=== PATIENT | female | born 1955 | race Caucasian/White ===

== ENCOUNTER 2020-09-25 12:36 | Emergency (ER) | payer MEDICARE, OTHER, SELFPAY ==
[2020-09-25 12:42] VITALS: BP 227/107; PULSE 86; RESP 20; TEMP 36.4; O2SAT 98; BMI 42.0
--- NOTE | 2020-09-25 12:42 | ED_ITS ---
Documented by User: CESILIA Hernandez 09/25/20 13:41 HPI - Extremity Injury (Upper) General: Chief Complaint: Extremity Injury, Upper Stated Complaint: FALL/ SHOULDER INJURY Time Seen by Provider: 09/25/20 12:41 Source: patient Mode of arrival: ambulatory Limitations: no limitations History of Present Illness: HPI narrative: 65-year-old female comes in for injury to the left upper arm. Patient reports she was walking the dog and the dog pulled on her causing her to trip and fall. Patient outstretched her arms and injured her left arm. Patient has some obvious deformity to the mid upper left humeral area. Review of Systems General: Reports: 10 or more systems reviewed and unremarkable except in HPI and below Musc: Reports: extremity pain (Left upper arm.) Physical Exam Const: COMMON NORMALS: no acute distress and patient oriented x3 GENERAL APPEARANCE: cooperative HENMT: COMMON NORMALS: normocephalic and Normal external nose present HEAD & SCALP: normal to inspection and normocephalic NOSE: Normal external nose present MOUTH: Normal oral and palatal mucosa present Eye: GENERAL EYE: appearance normal, both eyes and all related structures Neck/C-Spine: COMMON NORMALS: full ROM Chest: COMMONS NORMALS: normal inspection of the chest Resp: COMMON NORMALS: normal respiratory effort EFFORT & INSPECTION: Yes able to speak in complete sentences Cardio: COMMON NORMALS: regular rate and regular rhythm RATE: regular rate RHYTHM: regular rhythm GI: COMMON NORMALS: non-tender : COMMON NORMALS: Yes no CVA tenderness BLADDER/KIDNEY EXAM: Yes no CVA tenderness Back/Pelvis: COMMON NORMALS: no CVA tenderness and thoracic and lumbar spine normal to inspection Extremity: NARRATIVE EXTREMITY EXAM: Mid to upper shaft of the humerus notes some deformity or dislocation of the shoulder. Distal pulses and sensation are intact. Patient is not moving due to pain. Neuro: COMMON NORMALS: patient oriented x3 and moves all extremities Psych: COMMON NORMALS: mental status grossly normal and cooperative Skin: COMMON NORMALS: no rashes or lesions noted GENERAL SKIN EXAM: no rashes or lesions noted Course ED course: 1330, x-ray revealed a dislocation of the shoulder with avulsion at the humeral head. Consulted Dr. Monroe who agreed to assume care of patient for reduction.. wjw Vital Signs: Vital signs: Vital Signs Temperature 97.8 F 09/25/20 14:15 Pulse Rate 66 09/25/20 14:34 Respiratory Rate 25 H 09/25/20 14:15 Blood Pressure 218/128 09/25/20 14:15 Pulse Oximetry 96 09/25/20 13:26 Discharge Plan Discharge Patient Disposition: Home Clinical Impression: Dislocation of shoulder region Qualifiers: Encounter type: initial encounter Laterality: left Qualified Code(s): S43.005A - Unspecified dislocation of left shoulder joint, initial encounter Condition: Stable Prescriptions: [place] 5-325 mg tablet 1 tab PO Q6H PRN (Reason: pain) Qty: 14 RF: 0 Discharge Orders: Discharge ED (Routine); Ordered 09/25/20 Ordered By: Brittany Monroe Referrals: Tom Archibald MD [Primary Care Provider] - Clifford Bazan MD [Physician] - 1-3 days Discharge Diet: Advance as tolerated Discharge Activity: Resume usual activity Patient Instructions: Shoulder Dislocation (ED) Coding Level of Care Code ED Credentialing Specialist for Chg Fwd Exam Comprehensive Documented by User: Brittany Monroe MD 09/25/20 14:52 HPI - Extremity Injury (Upper) General: Chief Complaint: Extremity Injury, Upper Stated Complaint: FALL/ SHOULDER INJURY Time Seen by Provider: 09/25/20 12:41 Procedures Orthopedic Joint Reduction Joint #1: Time Out Performed: Yes Side: left Joint Reduction Location: shoulder Analgesia: procedural sedation Shoulder Technique Used (if applicable): traction/counter-traction Post-reduction neuro exam: intact Post-reduction vascular: intact Post Reduction X-Ray Obtained: Yes Post Reduction X-Ray Results: reduced Splint Applied: Yes Patient Tolerated Procedure: well Procedural Sedation Indication: fracture/dislocation reduction ASA Class: I Time of Last PO Intake: 11:50 Preparation: panel monitor applied, pulse oximeter, supplemental O2 applied, suction/airway equipment at bedside and IV secured IV Propofol dose (mg): 200 Patient Tolerated Procedure: well Complications: Respiratory Depression-Repositioning Required Interventions: oxygen applied, airway repositioned and assist by BVM Additional Comments: Patient had a brief period of hypoxia. She never got below 90% but was imt-gjthc-[id number] for roughly 1 minute with no complications Course Vital Signs: Vital signs: Vital Signs Temperature 97.8 F 09/25/20 14:15 Pulse Rate 66 09/25/20 14:34 Respiratory Rate 25 H 09/25/20 14:15 Blood Pressure 218/128 09/25/20 14:15 Pulse Oximetry 96 09/25/20 13:26 MDM - Extremity Injury (Upper) MDM Narrative: Medical decision making narrative: I saw patient with above midlevel. I performed the sedation along with the reduction. Patient's reduction was successful. Patient was having severe muscle spasms and had to give her 200 of propofol to be able to get the shoulder reduced. She did have slight apnea but did perform oyx-vusaw-cfpa she never had any hypoxia. Patient is now awake and is well-appearing. We will have her follow-up with orthopedics. Imaging Data^: X-ray left shoulder: Attestation: I personally reviewed and interpreted this imaging study as follows: My impression: Shoulder dislocation with likely Hill-Sachs fracture Other Xray: Radiologist's impression: Postreduction x-ray shows good placement of reduction Discharge Plan Discharge Patient Disposition: Home Clinical Impression: Dislocation of shoulder region Qualifiers: Encounter type: initial encounter Laterality: left Qualified Code(s): S43.005A - Unspecified dislocation of left shoulder joint, initial encounter Condition: Stable Prescriptions: [place] 5-325 mg tablet 1 tab PO Q6H PRN (Reason: pain) Qty: 14 RF: 0 Discharge Orders: Discharge ED (Routine); Ordered 09/25/20 Ordered By: Brittany Monroe Referrals: Tom Archibald MD [Primary Care Provider] - Clifford Bazan MD [Physician] - 1-3 days Discharge Diet: Advance as tolerated Discharge Activity: Resume usual activity Patient Instructions: Shoulder Dislocation (ED) Coding Level of Care Code ED Credentialing Specialist for Mary Janeg Fwd Exam Comprehensive
--- NOTE | 2020-09-25 12:45 | XR_ITS ---
WS: [id number] Left arm and humerus, 2 views, 09/25/2020 Clinical Data: injury Comparison: None. Findings: There is a dislocation of the humeral head in a subcoracoid location. There is an avulsion fracture o f the greater tuberosity. The AC joints intact. The shaft of the distal humerus is intact. XR/[place] [id number] Impression: Subcoracoid dislocation of left shoulder with avulsion fracture of the greater tuberosity.
[2020-09-25] MEDS: ondansetron 2 mg/ML SDV 2 mL 4 MG IVP (13:23)
[2020-09-25 13:26] VITALS: RESP 18; O2SAT 96
[2020-09-25] MEDS: morphine 4 mg/mL SDV 1 mL IVP (13:26)
[2020-09-25 14:15] VITALS: BP 218/128; PULSE 75; RESP 25; TEMP 36.6; O2SAT 100
--- NOTE | 2020-09-25 14:33 | XR_ITS ---
WS: [id number] Left shoulder, 2 views, 09/25/2020, 1421 hours. Clinical Data: POST REDUCTION Comparison: Left shoulder, today, 1252 hours. Findings: The shoulder dislocation has been reduced. The fracture of the greater tuberosity is visible. There i s a calcification adjacent to the greater tuberosity which may represent calcific bursitis or tendini tis. XR/XR shoulder LT min 2V* [id number] Impression: Reduction of left shoulder dislocation.
[2020-09-25 14:34] VITALS: PULSE 66
--- NOTE | 2020-09-25 14:36 | PC.NURSE ---
propofol 60mg at 1417 by irais 75hr, 19rr,218/128, 99 on 4L propofol 1418 by irais propofol 1420 40mg by irais propofol 1421 60mg by irais, 92 hr, 90% 6L, 210/113, 24RR 3088-8629 manual respirations by bag valve mask/respiratory. 1424 6L nc 95% 1425 procedure complete 215/102, hr 69, 02 100% 6L 1435 pt awake, oriented, bp 176/81, hr 71, rr 17, 02 100%4L 1439 pt a&o x4, ra, hr 70, bp 176/81, 97%ra, rr16
[2020-09-25 15:28] VITALS: BP 195/85; PULSE 70; RESP 18; O2SAT 99
--- NOTE | 2020-09-26 09:06 | DCPLANNER ---
alumni relations manager had message to schedule a follow up appointment for patient with ortho. alumni relations manager called the ortho clinic, spoke with Lisa, gave clinic patients information. alumni relations manager was told that patients information would be printed and reviewed. Clinic will call patient with appointment information.
--- NOTE | 2020-10-01 14:16 | DCPLANNER ---
Patient had a follow up appointment for patient with ortho scheduled for 09.29.20 - patient did attend appointment.
== END 2020-09-25 15:29 | disposition home or self-care (01) ==
PROVIDERS: Emergency Provider Emergency Medicine; PCP Family Medicine
DX: S43.005A Unspecified dislocation of left shoulder joint, initial encounter (principal); W01.0XXA Fall on same level from slipping, tripping and stumbling without subsequent striking against object, initial encounter
CPT/HCPCS: 12345; 23650; 73030; 73060; 96374; 96375; 99283; 99284; J2270; J2405

== ENCOUNTER → 2020-10-14 14:27 | Outpatient (BNVA) | payer MEDICARE, OTHER, SELFPAY | PROVIDERS: PCP Family Medicine; Visit Provider Orthopaedic Surgery | DX: S42.252A Displaced fracture of greater tuberosity of left humerus, initial encounter for closed fracture (principal); X58.XXXA Exposure to other specified factors, initial encounter | CPT/HCPCS: 73030 ==

== ENCOUNTER 2020-10-20 06:00 | Outpatient (RCR) | payer MEDICARE, OTHER, SELFPAY | END 2020-10-23 23:59 | disposition home or self-care (01) | LOC: SPT 06:00 | PROVIDERS: PCP Family Medicine; Referring Provider Orthopaedic Surgery; Visit Provider Orthopaedic Surgery | DX: S42.252D Displaced fracture of greater tuberosity of left humerus, subsequent encounter for fracture with routine healing (principal); X58.XXXD Exposure to other specified factors, subsequent encounter | CPT/HCPCS: 97110; 97161 ==

== ENCOUNTER 2020-10-24 06:00 | Outpatient (RCR) | payer MEDICARE, OTHER, SELFPAY | END 2020-11-23 23:59 | disposition home or self-care (01) | LOC: SPT 06:00 | PROVIDERS: PCP Family Medicine; Referring Provider Orthopaedic Surgery; Visit Provider Orthopaedic Surgery | DX: S42.252D Displaced fracture of greater tuberosity of left humerus, subsequent encounter for fracture with routine healing (principal); X58.XXXD Exposure to other specified factors, subsequent encounter | CPT/HCPCS: 97110; G0283 ==

== ENCOUNTER → 2020-11-11 14:06 | Outpatient (BNVA) | payer MEDICARE, OTHER, SELFPAY | PROVIDERS: PCP Family Medicine; Visit Provider Orthopaedic Surgery | DX: Z47.89 Encounter for other orthopedic aftercare (principal); S42.252D Displaced fracture of greater tuberosity of left humerus, subsequent encounter for fracture with routine healing; X58.XXXD Exposure to other specified factors, subsequent encounter | CPT/HCPCS: 73030 ==

== ENCOUNTER 2020-11-24 06:00 | Outpatient (RCR) | payer MEDICARE, OTHER, SELFPAY | END 2020-12-21 23:59 | disposition home or self-care (01) | LOC: SPT 06:00 | PROVIDERS: PCP Family Medicine; Referring Provider Orthopaedic Surgery; Visit Provider Orthopaedic Surgery | DX: S42.252D Displaced fracture of greater tuberosity of left humerus, subsequent encounter for fracture with routine healing (principal); X58.XXXD Exposure to other specified factors, subsequent encounter | CPT/HCPCS: 97110 ==

== ENCOUNTER → 2020-12-16 13:48 | Outpatient (BNVA) | payer MEDICARE, OTHER, SELFPAY | PROVIDERS: PCP Family Medicine; Visit Provider Orthopaedic Surgery | DX: S42.252D Displaced fracture of greater tuberosity of left humerus, subsequent encounter for fracture with routine healing (principal); X58.XXXD Exposure to other specified factors, subsequent encounter | CPT/HCPCS: 73030 ==

== ENCOUNTER 2020-12-22 06:00 | Outpatient (RCR) | payer MEDICARE, OTHER, SELFPAY | END 2021-01-21 23:59 | disposition home or self-care (01) | LOC: SPT 06:00 | PROVIDERS: PCP Family Medicine; Referring Provider Orthopaedic Surgery; Visit Provider Orthopaedic Surgery | DX: S42.252D Displaced fracture of greater tuberosity of left humerus, subsequent encounter for fracture with routine healing (principal); X58.XXXD Exposure to other specified factors, subsequent encounter | CPT/HCPCS: 97110 ==

== ENCOUNTER → 2021-01-14 10:02 | Outpatient (BNVA) | payer MEDICARE, OTHER, SELFPAY | PROVIDERS: PCP Family Medicine; Visit Provider Orthopaedic Surgery | DX: Z98.890 Other specified postprocedural states (principal); S42.252D Displaced fracture of greater tuberosity of left humerus, subsequent encounter for fracture with routine healing; W01.0XXD Fall on same level from slipping, tripping and stumbling without subsequent striking against object, subsequent encounter | CPT/HCPCS: 73030 ==

== ENCOUNTER → 2021-01-19 09:03 | Outpatient (BNVA) | payer MEDICARE, OTHER, SELFPAY | PROVIDERS: PCP Family Medicine; Visit Provider Podiatrist Foot & Ankle Surgery | DX: M25.571 Pain in right ankle and joints of right foot (principal) | CPT/HCPCS: 73610 ==

== ENCOUNTER 2021-02-26 13:46 | Outpatient (CLI) | payer MEDICARE, OTHER, SELFPAY ==
--- NOTE | 2021-02-26 13:51 | MM_ITS ---
WS: [id number] BILATERAL SCREENING DIGITAL MAMMOGRAM WITH CAD HISTORY: SCREENING COMPARISON: None available. Bilateral CC and MLO views submitted. Computer aided detection analyzed. Breast composition: There are scattered areas of fibroglandular density. No suspicious masses, microc alcifications or architectural distortion. Benign scattered calcifications and vascular calcification s within each breast. MM/[place] [id number] IMPRESSION: BI-RADS: 2-Benign FOLLOW UP: 1 Year Follow-up
== END 2021-02-26 13:47 | disposition home or self-care (01) ==
PROVIDERS: PCP Family Medicine; Visit Provider Family Medicine
DX: Z12.31 Encounter for screening mammogram for malignant neoplasm of breast (principal)
CPT/HCPCS: 77067

== ENCOUNTER → 2021-04-14 10:30 | Outpatient (BNVA) | payer MEDICARE, OTHER, SELFPAY | PROVIDERS: PCP Family Medicine; Visit Provider Orthopaedic Surgery | DX: S42.252D Displaced fracture of greater tuberosity of left humerus, subsequent encounter for fracture with routine healing (principal); X58.XXXD Exposure to other specified factors, subsequent encounter | CPT/HCPCS: 73030 ==

== ENCOUNTER 2021-10-19 08:04 | Outpatient (CLI) | payer MEDICARE, SELFPAY ==
--- NOTE | 2021-10-19 08:39 | ECG_ITS ---
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 Interpretive Statements NAME OF STUDY: LEXISCAN SESTAMIBI STRESS TEST INDICATION: Cp/near syncope, PROCEDURE: At the baseline, the EKG revealed normal sinus rhythm with a poor R wave progression. Possible old anteroseptal MN. Some nonspecific T wave changes. The baseline blood pressure was 159/87 mm Hg with a heart rate of 67 beats/min. Lexiscan was infused over a period of 20 seconds. A total of 0.4 milligrams of Lexiscan was infused. The stress phase was continued for a total of 5 minutes. Heart rate at the end of the stress phase was 79 with a blood pressure 139/78. The EKG at the peak infusion revealed no significant changes. Sestamibi was injected 20 seconds after the Lexiscan infusion. Blood pressure at the end of the recovery phase was 145/78 with a heart rate of 70 per minute. CONCLUSION: 1. No significant EKG changes with the LexiScan infusion 2. No LexiScan induced chest pain or cardiac arrhythmia 3. Normal blood pressure and heart rate response 4. Sestamibi/sestamibi perfusion scan pending; see separate report. Electronically Signed On 10-23-2021 10:30:17 STATE COMPTROLLER by Dina Villatoro M.D. [id number]
--- NOTE | 2021-10-19 08:39 | NMCV_ITS ---
NM juan francisco perf SPECT r/s* [id number] Daniela Hernandez Age: 66 Gender: F : 1955 Exam Date: 10/19/2021 09:35 Ordering Phys: Matt Mercado MD Technologist: CATRACHO George Exam Location: [facility] Indications: CHEST PAIN STRESS TEST Please see separate stress test report in [facility] for full findings IMAGE PROTOCOL Rest/Stress 1 Lexiscan Day Radiopharmaceutical Dose (mCi) Administration Site Administered by Rest: Tc-99m 10.8 IV CATRACHO Vela Sestamibi Stress:Tc-99m 33.0 IV CATRACHO Vela Sestamibi Rest: 19-Oct-2021 60 Discovery 630 Stress: 19-Oct-2021 30 Discovery 630 0.4mg Lexiscan. Supine position only as patient was unable to lay prone. SPECT RESULTS Technical Quality: Excellent Raw Data Analysis: Normal Image Corrections: No attenuation or motion correction applied Summed Stress Score: 0 Summed Rest Score: 0 Summed Difference Score: 0 PERFUSION FINDINGS Small area of slightly decreased size uptake in the mid and apical anterior wall region, with no significant reversibility FUNCTIONAL RESULTS (calculated via Gated SPECT) Stress Image LV EF (%): 79 Stress EDV (mL):102 TID: 0.95 Stress ESV (mL):21 FUNCTIONAL FINDINGS: Segmental wall motion analysis revealing no gross wall motion abnormalities IMPRESSIONS 1. Myocardial perfusion imaging revealing small area of slightly decreased persistent tracer uptake in the mid and apical anterior wall region, suggestive of myocardial scarring versus attenuation artifact. 2. Normal LV ejection fraction of 79%. 3. LV wall motion analysis revealing no gross wall motion normalities. 4. Normal LV volume. No significant coronary ischemia, based on the above findings Dr Dina Villatoro MD [facility] (Electronically Signed) Final Date: 20 October 2021 00:24 S
[2021-10-19 09:15] VITALS: BMI 43.9
[2021-10-19] MEDS: regadenoson 0.4 Mg/5 ml Syringe IVP (10:16)
[2021-10-19 10:27] VITALS: BP 145/78; PULSE 79
== END 2021-10-19 08:05 | disposition home or self-care (01) ==
LOC: RAD 08:13 → CDL 08:39
PROVIDERS: PCP Family Medicine; Visit Provider Family Medicine
DX: R07.9 Chest pain, unspecified (principal); R55 Syncope and collapse; R06.02 Shortness of breath
CPT/HCPCS: 78452; 93017; A9500; J2785

== ENCOUNTER → 2022-01-20 09:37 | Outpatient (BNVA) | payer MEDICARE, SELFPAY | PROVIDERS: PCP Family Medicine; Visit Provider Internal Medicine Cardiovascular Disease | DX: I47.2 Ventricular tachycardia (principal); E66.9 Obesity, unspecified; G47.33 Obstructive sleep apnea (adult) (pediatric); R55 Syncope and collapse | CPT/HCPCS: 99204 ==

== ENCOUNTER 2022-06-07 11:12 | Outpatient (CLI) | payer MEDICARE, SELFPAY ==
--- NOTE | 2022-06-07 11:21 | XRR_ITS ---
PROCEDURE INFORMATION: Exam: XR Right Shoulder Exam date and time: 06/07/2022 11:45 AM Age: 67 years old Clinical indication: Pain; Shoulder; Right; Additional info: Right shoulder pain TECHNIQUE: Imaging protocol: Radiologic exam of the Right shoulder. Views: 2 or more views. COMPARISON: No relevant prior studies available. FINDINGS: Bones/joints: No fracture or dislocation. There is mild degenerative changes of the right shoulder joint, manifested by periarticular osteophytes. In the externally rotated view, there is a 1.0 cm ossific density projecting over the superior aspect of the glenohumeral joint, concerning for intra-articular body. Degenerative changes of the spine is also seen. Soft tissues: Normal. XR/XR shoulder RT min 2V* [id number] IMPRESSION: 1. No acute injury. 2. Mild degenerative changes of the glenohumeral joint. 3. Prominent osteophyte versus intra-articular body.
== END 2022-06-07 11:13 | disposition home or self-care (01) ==
LOC: RAD 11:15
PROVIDERS: PCP Family Medicine; Visit Provider Family Medicine
DX: M25.511 Pain in right shoulder (principal)
CPT/HCPCS: 73030

== ENCOUNTER → 2022-06-16 15:23 | Outpatient (BNVA) | payer MEDICARE, SELFPAY | PROVIDERS: PCP Family Medicine; Referring Provider Family Medicine; Visit Provider Orthopaedic Surgery | DX: M19.011 Primary osteoarthritis, right shoulder (principal) | CPT/HCPCS: 73030; 99213; 99214 ==

== ENCOUNTER 2022-06-24 13:04 | Outpatient (CLI) | payer MEDICARE, SELFPAY ==
--- NOTE | 2022-06-24 13:00 | MR_ITS ---
WS: [id number] MRI RIGHT SHOULDER NONCONTRAST TECHNIQUE: Sagittal T2, coronal T1, T2 and proton density imaging. Axial gradient PDE imaging. CLINICAL INFORMATION: pain COMPARISON: None. FINDINGS: Moderate to advanced degenerative arthritis AC joint with mild edema. Mild downsloping of the acromio n with subacromial spurring. Impingement on the distal supraspinatus with tendinopathy. Tiny undersur face tear distal supraspinatus. Tiny insertional tear. Normal infraspinatus. Normal teres minor. Normal subscapularis. Subchondral degenerative cyst along t he medial bicipital groove. Tiny biceps tendon within the bicipital groove. Intra-articular biceps tendon appears intact. Normal biceps labral anchor. Degenerative fraying of the glenoid labrum. Calcified loose body in the axillar y recess. Moderate to advanced degenerative narrowing involving the glenohumeral joint. MR/MR shoulder RT wo con* [id number] IMPRESSION: 1. Moderate to advanced arthritis AC joint with mild downsloping acromion. Imp ingement on the distal supraspinatus. Tiny undersurface tear distally. Tiny ins ertional tear distal supraspinatus with chronic thinning of the supraspinatus t endon. 2. Rotator cuff is otherwise intact. 3. Subchondral cyst involving the medial bicipital groove measuring 7 mm. 4. Advanced degenerative narrowing at the glenohumeral joint with hypertrophic spurring along the medial humeral head. 5. Tiny biceps tendon within the bicipital groove may be due to chronic tear. Intra-articular biceps tendon appears intact.
== END 2022-06-24 13:05 | disposition home or self-care (01) ==
PROVIDERS: PCP Family Medicine; Visit Provider Orthopaedic Surgery
DX: M25.511 Pain in right shoulder (principal); M13.811 Other specified arthritis, right shoulder
CPT/HCPCS: 73221

== ENCOUNTER → 2022-07-13 14:11 | Outpatient (BNVA) | payer MEDICARE, SELFPAY | PROVIDERS: PCP Family Medicine; Visit Provider Orthopaedic Surgery | DX: M19.011 Primary osteoarthritis, right shoulder (principal) | CPT/HCPCS: 99213 ==

== ENCOUNTER 2022-08-23 10:53 | Outpatient (CLI) | payer MEDICARE, SELFPAY ==
--- NOTE | 2022-08-23 11:00 | CT_ITS ---
WS: [id number] NONCONTRAST CT RIGHT SHOULDER TECHNIQUE: Noncontrast CT RIGHT shoulder with coronal and sagittal reformatted images. CLINICAL INFORMATION: M19.011 - Primary osteoarthritis, right shoulder COMPARISON: MRI June 24, 2022 DLP: 693.[address] scans at [facility] use at least one of these dose optimization techniques: automated e xposure control; mA and/or kV adjustment per patient size (includes targeted exams where dose is matc hed to clinical indication); or iterative reconstruction. FINDINGS: Moderate degenerative arthritis AC joint with mild downsloping acromion. Narrowing of the subacromial space. Advanced arthritis glenohumeral joint hypertrophic changes. Hypertrophic spurring along the h umeral neck and glenoid. Calcified loose body along the posterior humeral neck measuring 11 mm. Subch ondral cystic change involving the humeral head. Intraosseous ganglion cyst or subchondral cyst invol ving the humeral head adjacent to the bicipital groove. Visualized RIGHT lung is well aerated. CT/CT shoulder RT wo con* [id number] IMPRESSION: 1. Moderate degenerative arthritis AC joint. 2. Advanced degenerative arthritis glenohumeral joint with hypertrophic spurri ng. 3. Subchondral cystic change or intraosseous ganglion cyst along the bicipital groove unchanged from MRI. 4. Calcified intra-articular loose body along the dorsal humeral neck measurin g 11 mm.
== END 2022-08-23 10:54 | disposition home or self-care (01) ==
LOC: RAD 10:56
PROVIDERS: PCP Family Medicine; Visit Provider Orthopaedic Surgery
DX: M19.011 Primary osteoarthritis, right shoulder (principal); M24.011 Loose body in right shoulder
CPT/HCPCS: 73200

== ENCOUNTER 2022-08-24 11:30 | Outpatient (CLI) | payer MEDICARE, SELFPAY | END 2022-08-24 11:31 | disposition home or self-care (01) | LOC: RT 09-01 11:32 | PROVIDERS: PCP Family Medicine; Visit Provider Orthopaedic Surgery | DX: Z01.89 Encounter for other specified special examinations (principal); R94.31 Abnormal electrocardiogram [ECG] [EKG] | CPT/HCPCS: 93005 ==

== ENCOUNTER 2022-09-06 09:57 | Observation (INO) | payer MEDICARE, SELFPAY ==
[2022-08-24 10:49] VITALS: BMI 45.7
--- NOTE | 2022-08-24 10:57 | ECG_ITS ---
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 Measurements Intervals Trevor Rate: 63 P: 22 WA: 166 QRS: 1 QRSD: 94 T: 20 QT: 402 QTc: 413 Interpretive Statements SINUS RHYTHM WITH OCCASIONAL VENTRICULAR PREMATURE COMPLEXES LOW QRS VOLTAGE IN PRECORDIAL LEADS [QRS DEFLECTION < 1.0 mV IN CHEST LEADS] POSSIBLE ANTERIOR MYOCARDIAL INFARCTION , OF INDETERMINATE AGE [30 ms Q WAVE IN V3/V4, OR R < 0.2 mV IN V4] No previous ECG available for comparison Electronically Signed On 08-24-2022 21:53:33 CDT by Dina Villatoro M.D. [id number]
[2022-08-24 11:34] LABS: Basophils # 0.1 10^3/uL (0.0-0.1); Basophils % 1.2 %; Eosinophils # 0.1 10^3/uL (0.0-0.8); Eosinophils % 1.9 %; Hematocrit 45.9 % (37.0-47.0); Hemoglobin 14.6 g/dL (11.5-15.3); Lymphocytes # 2.2 10^3/uL (0.8-4.8); Lymphocytes % 32.5 %; Mean Corpuscular HGB Conc 31.8 g/dL (30.0-36.0); Mean Corpuscular Hemoglobin 29.4 pg (28.0-34.0); Mean Corpuscular Volume 92.5 fl (81-99); Mean Platelet Volume 11.7 fL (7.4-10.4); Monocytes # 0.4 10^3/uL (0.2-0.9); Monocytes % 5.6 %; Neutrophils # 3.99 10^3/uL (1.8-7.7); Neutrophils % 58.7 %; Nucleated Red Blood Cells % 0 %; Platelet Count 192 10^3/cmm (130-400); Red Blood Count 4.96 10^6/uL (4.1-5.3); Red Cell Distribution Width 14.5 % (12.1-15.1); White Blood Count 6.8 10^3/uL (4.0-10.0)
--- NOTE | 2022-08-24 11:36 | ANES.PREANE2 ---
Pre-Anesthetic Assessment Height/Weight: Height 1.57 m Weight 113.398 kg Operation Date: 09/06/22 07:00 Proposed Procedures p RightTotal Shoulder Arthroplasty 05192,M19.011(Right) - Clifford Bazan MD Familial anesthetic complications: NOne Social No alcohol and No tobacco Exam alert, oriented x 3, clear to auscultation bilaterally and regular rate & rhythm Airway Mallampati: Class II Dentition: full Pulmonary Sleep Apnea CV/HEM Arrythmia (on diltiazem) None reported Hepatic None reported GI None reported Metabolic Morbid Obesity [facility]/sk Lower Back Pain Neuropsych None reported Anesthetic Plan ASA status: 2 Anesthesia: General and Regional (specify below) Other: interscalene Risk of > 500 ml blood loss (7ml/kg in children): No Medications/Allergies Home Medications Medication Instructions Recorded Confirmed Last Taken Type acetaminophen 325 mg tablet 325 mg PO QID PRN Pain 01/20/22 08/24/22 Unknown History (Tylenol) cholecalciferol (vitamin D3) 25 25 mcg PO DAILY 01/20/22 08/24/22 Unknown History mcg (1,000 unit) capsule potassium gluconate 595 mg (99 mg) 595 mg PO DAILY 01/20/22 08/24/22 Unknown History tablet vitamin E 200 unit capsule 200 unit PO DAILY 01/20/22 08/24/22 Unknown History diltiazem HCl 30 mg tablet 15 mg PO BID #90 tabs 03/31/22 08/24/22 Unknown Rx (Cardizem) magnesium oxide 200 mg PO DAILY 08/24/22 08/24/22 Unknown History Allergies Allergy/AdvReac Type Severity Reaction Status Date / Time No Known Allergies Allergy Verified 08/24/22 10:47 [facility] Anesthesia Medical History Obesity IRAJ (obstructive sleep apnea) Surgical History S/P bladder repair S/P cholecystectomy S/P hysterectomy S/P knee replacement Family History Mother , from [place] CAD (coronary artery disease) Pulmonary embolism Father , from [place] Myasthenia gravis Social History Smoking and tobacco status: never smoked Data Anesthesia : 08/24/22 11:26 08/24/22 11:26 Short CBC 08/24/22 Range/Units 11:26 WBC 6.8 (4.0-10.0) 10^3/uL Hgb 14.6 (11.5-15.3) g/dL Hct 45.9 (37.0-47.0) % MCV 92.5 (81-99) fl Plt Count 192 (130-400) 10^3/cmm Neut % (Auto) 58.7 % Neut # (Auto) 3.99 (1.8-7.7) 10^3/uL Cardiac Studies: Sestamibi Stress Test (Cardiology) 10/19/21 Cardiac Event Monitor 10/27/21
[2022-08-24 11:49] LABS: Anion Gap 16.3 (5-19); Blood Urea Nitrogen 27 mg/dL (8-23); Carbon Dioxide 21 mmol/L (22-29); Chloride 105 mmol/L (98-107); Glomerular Filtration Rate 122.3 mL/min (90-130); Glucose 73 mg/dL (65-115); Osmolality Calculated 290 mOsm/kg (285-295); Potassium 4.3 mmol/L (3.5-5.1); Sodium 138 mmol/L (136-145)
[2022-09-06] VITALS (18 sets, daily range): BP systolic 132–213; BP diastolic 62–98; PULSE 56–70; RESP 16–50; TEMP 36–36.6; O2SAT 93–100; BMI 55.0
[2022-09-06] MEDS: sodium chloride 0.9% 1,000 ML 30 ML IV (06:29)
--- NOTE | 2022-09-06 07:11 | W.PM.OPSFHP ---
Same Day Surgery H&P Indication for Procedure/HPI DATE OF PROCEDURE: September 06, 2022 CHIEF COMPLAINT/INDICATIONFOR SURGICAL PROCEDURE: Osteoarthritis right shoulder here for total shoulder arthroplasty PREOP DIAGNOSIS: Osteoarthritis right shoulder PLANNED PROCEDURE: Operation Date: 09/06/22 07:30 Proposed Procedures p RightTotal Shoulder Arthroplasty 88845,M19.011(Right) - Clifford Bazan MD 67 year old female patient here for evaluation of her right shoulder pain. She states that she has had pain for many year, however gradually worsening in the last 3-4 months. She has pain in the anterior and lateral shoulder. She states that her pain is reproduced with any movement of the shoulder. She has pain with lifting away from body. She states that her pain is severe at night and keeps her awake.? At night it may reduce to 5/10 intensity.? She has time where her pain wakes her from sleep. She reports that she has had cortisone injections 20+ years ago, which did give her some temporary relief. She currently takes Ibuprofen as needed for pain. She has seen chiropractics and performed a home exercise program.? She states her some days weekends she can scarcely reach the top of her head to wash her hair.? She is concerned that she feels she is reaching the point where she can scarcely use her arm. An MRI dated 06/24/2022 revealed advanced degenerative changes and an intact rotator cuff. Medications/Allergies* Home Medications Medication Instructions Recorded Confirmed Type acetaminophen 325 mg tablet 325 mg PO QID PRN Pain 01/20/22 09/06/22 History (Tylenol) cholecalciferol (vitamin D3) 25 25 mcg PO DAILY 01/20/22 09/06/22 History mcg (1,000 unit) capsule potassium gluconate 595 mg (99 mg) 595 mg PO DAILY 01/20/22 09/06/22 History tablet vitamin E 200 unit capsule 200 unit PO DAILY 01/20/22 09/06/22 History magnesium oxide 200 mg PO DAILY 08/24/22 09/06/22 History Allergies/Adverse Reactions Allergy/AdvReac Type Severity Reaction Status Date / Time No Known Allergies Allergy Verified 09/06/22 05:48 Current Medications: Generic Name Dose Route Start Last Admin Trade Name Freq PRN Reason Stop Dose Admin Sodium Chloride 1,000 mls @ 30 mls/hr 09/06/22 05:45 09/06/22 06:29 Sodium Chloride 0.9% IV 09/07/22 05:44 30 mls/hr .Q24H SARAI Administration Pertinent History/Comorbid Conditions* Medical History (Updated 06/16/22 @ 15:26 by Clifford Bazan MD) Obesity IRAJ (obstructive sleep apnea) Surgical History (Updated 01/20/22 @ 10:16 by Anna Ibrahim MD) S/P bladder repair S/P cholecystectomy S/P hysterectomy S/P knee replacement Family History (Updated 01/20/22 @ 10:00 by Maggie James RN) Father, from [place] Mother, from [place] CAD (coronary artery disease) Mother Myasthenia gravis Father Pulmonary embolism Mother Social History Smoking and tobacco status: never smoked Pertinent Exam Findings alert, oriented x 3, clear to auscultation bilaterally, regular rate & rhythm and operative site marked SHOULDER right? RANGE OF MOTION:? EXAMINED EXTREMITY ? Flexion: 90 ? External Rotation:30 ? Pain with motion ROTATOR CUFF STRENGTH: ? ? ? EXAMINED EXTREMITY ? Abduction Supination: Good without pain ? Abduction Pronation: Good without pain ? External Rotation: Good without pain ? Belly Press: Negative VASCULAR: Strong radial pulses bilaterally. Recommendations Surgery/Procedure today Coding Level of Care Code Acute Supervisor Prop Making for Chg Fwd
--- NOTE | 2022-09-06 07:15 | P.ANESUD_ITS ---
Pre-Anesthetic Update Pre-Anesthetic Assessment: Date of Surgery/Procedure: 09/06/22 Preop [place] gnosis: Osteoarthritis right shoulder Proposed Procedure: Operation Date: 09/06/22 07:30 Proposed Procedures p RightTotal Shoulder Arthroplasty 92265,M19.011(Right) - Clifford Bazan MD Any changes to Pre-Anesthetic Assessment?: No Last Intake: Intake Last Liquid Date 09/05/22 Last Liquid Time 23:45 Last Solid Date 09/05/22 Last Solid Time 18:30 Vitals: Temperature 97.8 F 09/06/22 05:51 Temperature Source Temporal Artery S can 09/06/22 05:51 Pulse Rate 70 09/06/22 05:51 Respiratory Rate 18 09/06/22 05:51 Blood Pressure 176/82 09/06/22 05:58 Blood Pressure Jinny n 113 09/06/22 05:58 Pulse Oximetry 97 09/06/22 05:51 Oxygen Delivery Me thod 09/06/22 05:51 Exam: Pre-Anes Outpt Exam: alert, oriented x 3, clear to auscultation bilaterally and regular rate & rhythm Cardiac Studies: Sestamibi Stress Test (Cardiology) 10/19 Cardiac Event Monitor 10/27/21
--- NOTE | 2022-09-06 07:16 | ANES.PROC ---
Anesthesia Procedures Procedure/Date: 09/06/22 Nerve Block ^: Nerve Block 1: Main Anesthesia: general anesthesia Time Out Performed: Yes Consent: requested by attending/covering physician, from patient, from other, risks and benefits reviewed and patient agrees to proceed Nerve block location: interscalene (R) Anesthesia monitors applied: pulse oximetry, EKG and BP cuff Nerve block position: semi sitting Anesthetic Used: ropivicaine 0.5% (20) and with decadron ( 4 mg) Ultrasound used to: recognize landmarks and visualize and ID brachial plexus Nerve Stimulator Used?: No Interscalene/Femoral BLK: 2 stimuplex 22 g needle used for position and inplane approach, visualize local anesthetic spread and no vascular puncture identified Injection: neg aspiration of heme Patient Tolerated Procedure: well and no complications Complications: none
[2022-09-06] MEDS: ceFAZolin 2,000 MG in sodium chloride 0.9% (plus) 50 ML 100 MG IV ×2 (07:30→13:53)
[2022-09-06] MEDS: EPINEPHrine 1 mg/mL INJ XX (08:05)
--- NOTE | 2022-09-06 10:06 | XR_ITS ---
WS: [id number] Exam: XR shoulder RT min 2V* [id number] Date/Time of Exam: 09/06/2022 10:06 AM Reason For Exam: Right total shoulder A shoulder prosthesis is noted and appears to be in satisfactory position. Postoperative changes in t he adjacent soft tissues. XR/XR shoulder RT min 2V* [id number] IMPRESSION: 1. Shoulder arthroplasty appearing to be in satisfactory position.
--- NOTE | 2022-09-06 10:07 | PM.OP ---
Operative Report Date of procedure: September 06, 2022 Pre-op diagnosis: Preop Diagnosis Osteoarthritis right shoulder Post-op diagnosis: same Procedure done: [] total shoulder arthroplasty Implants: Tornier total shoulder 1) Simpliciti size 3B stem 2) Simpliciti 45 x 17 high offset humeral Head 3) Aequalis PerFORM cortiolc pegged glenoid S30 mm Pathology: none sent Surgeon: Clifford Bazan Anesthesia: General and Nerve Block (Interscalene) Estimated blood loss (mL): 100 Condition: stable Disposition: PACU Brief History: Patient eburnated bone and flattening of the humeral head with peripheral osteophytes. There is eburnated bone of the glenoid. Procedure: Patient was given a interscalene block in holding. The patient was taken to the operating room and was given 2 g of Ancef. He is prepped and draped in the beachchair position with his arm supported on a George stand. A timeout was performed. A 10cm incision was made just lateral to the coracoid extending distally in line with the medial deltoid border. Dissection was carried out identifying the cephalic vein in the deltopectoral interval. Dissection was accomplished manually through the interval and subacromial and lateral deltoid adhesions released by hand. A Cristi soft tissue protector was placed. The biceps tendon was identified distally and traced proximally through the bicipital groove. The subscapularis and underlying capsule were then peeled off of the lesser tuberosity. The free tendon was fixed with braided sutures in a locking fashion and the free ends secured with a hemostat. The rotator interval was then split. The shoulder then could be dislocated out of the wound. In accordance with our preoperative plan a femoral head cut was made at the level of the capsular insertions with retractors to protect the rotator cuff. The canal was initially entered and sequentially hand broached to a 3 4 broach. A trial reduction with the size 3B stem provided satisfactory fill and stability. And covered with the humeral protector plate. Retractors were then placed around the glenoid with the humeral head being retracted posteriorly and inferiorly. Release of the capsule was accomplished beginning anteriorly and working posteriorly around the humeral head. In accordance with the plan the central guidepin was placed. The glenoid was planed down to subchondral bone removing. The central peg hole and peripheral holes were then placed. The glenoid was irrigated removing cartilaginous remnants. Peripheral peg holes were dried with a Ray-Eze and prepared with an epinephrine solution. Simplex P antibiotic cement was packed in each pedicle and the final glenoid component placed. Trial reduction was accomplished before settling on the mm mm thickness glenoid. The final humeral head was placed in the shoulder reduced. 4 drill holes were then made beginning in the bicipital groove posteriorly into the greater tuberosity. Sutures from the subscapularis were passed through these holes and the sutures were secured over a 4-hole mini plate over the greater tuberosity with excellent purchase. The rotator interval was closed laterally with a braided nylon suture. The shoulder was irrigated with saline. The deltopectoral interval was closed with interrupted 0 Vicryl suture. Subcutaneous tissues were closed with running 2-0 Stratafix. Skin edges closed with a running 4-0 Stratafix. The skin was covered with a Prineo skin glue and covered with OpSite. The patient was placed in a sling, extubated, and taken recovery room in stable condition.
--- NOTE | 2022-09-06 10:21 | SUR.PHASEI ---
1001 PT TO PACU 5 PT AWAKE ORIENTED TO SELF AND PLACE, RT SHOULDER DRESSING D/I FIRST ICE APPLIED, HOB AT 30 DEGREES, BILAT FOOT PUMPS ON AND WORKING, MONITOR SR WITH NO ECPTOPY RATE 60'S, IV TO LT AC #20 PATENT TO 800 ML UP AT KVO RATE SATS ON 8L MASK 100% X RAY AND DR GARZA AT BEDSIDE. PT VERBALLY DENIES PAIN AND NAUSEA. WARM BLANKET X 3 TO PT. SLING TO RT ARM, DISTAL FINGERS PINK WARM WITH CAP REFILL LESS THAN 3 SECONDS,
--- NOTE | 2022-09-06 10:30 | SUR.PHASEI ---
PT AWAKE ALERT TALKATIVE, HOB AT 45 DEGREES PT GIVEN WARM BLANKETS X3 TO PT, PT TAKING ICE CHIPS, C/O OF PAIN OF 7/10 TO RT SHOULDER. SEE MED GIVEN
[2022-09-06] MEDS: fentaNYL 50 mcg/mL INJ 2mL IVP (10:33)
--- NOTE | 2022-09-06 11:21 | SUR.PHASEI ---
PT TO FLOOR PER [facility] FAMILY UPDATED AT 1040 PT STABLE AND GOING TO FLOOR FAMILY MED PT IN ROOM , PT NAUSEATED FROM TRAVEL, PT TO BED WITH ASSIST OF 3 AND HOOVERMAT, PT DRESSING D/I SLING IN PLACE AND FIRST ICE, HANDOFF AT BEDSIDE, IV PATENT AT KVO RATE. COOL CLOTH TO PT FOREHEAD, NURSE RAMONITA CHECKING FOR NAUSEA MED ON FLOOR.
[2022-09-06] MEDS: sodium chloride 0.9% 1,000 ML 80 ML IV ×2 (11:35→21:05)
[2022-09-06 11:47] LABS: Glucose Point of Care 104 mg/dL (70-110)
[2022-09-06] MEDS: oxyCODONE 5 mg IR Tab/Cap PO ×3 (12:55→21:04)
--- NOTE | 2022-09-06 13:23 | ANE.PACU2 ---
Inpatient post-anesthesia follow up: Airway intact: Yes Vital signs: Temperature 96.8 F Pulse Rate 56 Respiratory Rate 18 Blood Pressure 142/78 Pulse Oximetry 97 Oxygen Delivery Me thod Nasal Cannula Oxygen Flow Rate 3 Fraction of Inspir ed Oxygen Hydration adequate: Yes Nausea and vomiting: No Pain level: 1 Mental status: Baseline
[2022-09-06] MEDS: acetaminophen 500 mg Tablet 1000 MG PO ×2 (13:53→23:05)
[2022-09-06] MEDS: dilTIAZem 30 mg Tablet 15 MG PO (17:19)
[2022-09-06] MEDS: CELEcoxib 200 mg Capsule PO (17:20)
[2022-09-06] MEDS: ceFAZolin 2,000 MG in sodium chloride 0.9% (plus) 50 ML 50 MG IV (23:04)
[2022-09-07] VITALS (8 sets, daily range): BP systolic 137–151; BP diastolic 60–76; PULSE 60–70; RESP 17–18; TEMP 36.6–36.8; O2SAT 91–97
[2022-09-07] MEDS: oxyCODONE 5 mg IR Tab/Cap PO ×3 (01:32→09:08)
[2022-09-07] MEDS: ceFAZolin 2,000 MG in sodium chloride 0.9% (plus) 50 ML 100 MG IV (06:43)
[2022-09-07] MEDS: acetaminophen 500 mg Tablet 1000 MG PO (06:43)
[2022-09-07] MEDS: CELEcoxib 200 mg Capsule PO (09:08)
[2022-09-07] MEDS: aspirin 325 mg EC Tablet PO (09:08)
[2022-09-07] MEDS: dilTIAZem 30 mg Tablet 15 MG PO (09:08)
--- NOTE | 2022-09-07 09:44 | PM.DCS ---
Discharge Providers Date of Admission: 09/06/22 09:57 Date of Discharge: September 07, 2022 Attending Provider at Admission: Clifford Garza MD Attending Provider at Discharge: Clifford Garza MD Primary Care Provider: Matt Mercado MD Diagnoses at Discharge Discharge Diagnosis (1) Status post replacement of right shoulder joint: Status: Acute (2) Osteoarthritis of right shoulder: Status: Resolved Reason for Visit Reason for Visit: M19.011 Primary Osteoarthritis, right shoulder Hospital Course Hospital Course The patient tolerated surgery well. They remained hemodynamically stable. They was begun on aspirin and for DVT prophylaxis. The patient was mobilized with therapy beginning the day of surgery and began a passive range of motion program with occupational therapy. As the pain was adequately controlled and they were fully mobile they were discharged home. Physical Exam Narrative: On the day of discharge the patient's dressing was clean and dry. The patient's would fire his deltoid and their biceps. No distal neurovascular deficits were noted. Discharge Data Studies Completed and Pending Completed Studies During Hospitalization Category Date Time Status XR shoulder RT min 2V* [id number] Routine Exams 09/06/22 10:06 Completed Radiology Impressions Shoulder X-Ray 09/06/22 10:06 IMPRESSION: 1. Shoulder arthroplasty appearing to be in satisfactory position. Laboratory Results WBC 6.8 10^3/uL (4.0-10.0) 08/24/22 11: RBC 4.96 10^6/uL (4.1-5.3) 08/24/22 11:26 Hgb 14.6 g/dL (11.5-15.3) 08/24/22 11:26 Hct 45.9 % (37.0-47.0) 08/24/22 11:26 MCV 92.5 fl (81-99) 08/24/22 11:26 MCH 29.4 pg (28.0-34.0) 08/24/22 11:26 MCHC 31.8 g/dL (30.0-36.0) 08/24/22 11:26 RDW 14.5 % (12.1-15.1) 08/24/22 11:26 Plt Count 192 10^3/cmm (130-400) 08/24/22 11:26 MPV 11.7 fL (7.4-10.4) H 08/24/22 11:26 Neut % (Auto) 58.7 % 08/24/22 11:26 Lymph % (Auto) 32.5 % 08/24/22 11:26 [place] % (Auto) 5.6 % 08/24/22 11:26 Eos % (Auto) 1.9 % 08/24/22 11:26 Baso % (Auto) 1.2 % 08/24/22 11:26 Neut # (Auto) 3.99 10^3/uL (1.8-7.7) 08/24/22 11:26 Lymph # (Auto) 2.2 10^3/uL (0.8-4.8) 08/24/22 11:26 [place] # (Auto) 0.4 10^3/uL (0.2-0.9) 08/24/22 11: Eos # (Auto) 0.1 10^3/uL (0.0-0.8) 08/24/22 11: Baso # (Auto) 0.1 10^3/uL (0.0-0.1) 08/24/22 11:26 Nucleated RBC % (auto) 0 % 08/24/22 11: Nucleated RBCs # 0.0 /100WBC 08/24/22 11:26 Sodium 138 mmol/L (136-145) 08/24/22 11:26 Potassium 4.3 mmol/L (3.5-5.1) 08/24/22 11:26 Chloride 105 mmol/L (98-107) 08/24/22 11:26 Carbon Dioxide 21 mmol/L (22-29) L 08/24/22 11:26 Anion Gap 16.3 (5-19) 08/24/22 11:26 BUN 27 mg/dL (8-23) H 08/24/22 11:26 Creatinine 0.5 mg/dL (0.5-0.9) 08/24/22 11:26 GFR Calculation 122.3 mL/min (90-130) 08/24/22 11:26 Glucose 73 mg/dL (65-115) 08/24/22 11:26 POC Glucose 104 mg/dL (70-110) 09/06/22 11:30 Calculated Osmolality 290 mOsm/kg (285-295) 08/24/22 11:26 Calcium 10.0 mg/dL (8.5-10.5) 08/24/22 11:26 Vitals Last Vital Signs Temp 98.0 F 09/07/22 07:57 Pulse 68 09/07/22 07:57 Resp 18 09/07/22 09:08 BP 148/64 09/07/22 07:57 Pulse Ox 95 09/07/22 07:57 O2 Del Method 09/07/22 07:57 O2 Flow Rate 3 09/06/22 10:50 Discharge Plan Discharge Patient Disposition: Home Condition: Stable Prescriptions: New oxycodone 5 mg Tablet 5 mg PO Q4H PRN (Reason: Moderate Pain) 7 Days Qty: 30 0RF aspirin 325 mg Tablet,Delayed Release (Dr/Ec) 325 mg PO DAILY 30 Days Qty: 30 0RF celecoxib 200 mg Capsule 200 mg PO BID 14 Days Qty: 28 0RF acetaminophen 500 mg Tablet 1,000 mg PO Q8H 14 Days Qty: 84 0RF Continued cholecalciferol (vitamin D3) 25 mcg (1,000 unit) capsule 25 mcg PO DAILY vitamin E 200 unit capsule 200 unit PO DAILY potassium gluconate 595 mg (99 mg) tablet 595 mg PO DAILY diltiazem HCl [Cardizem] 30 mg tablet 15 mg PO BID Qty: 90 3RF magnesium oxide 400 mg magnesium capsule 200 mg PO DAILY Discontinued acetaminophen [Tylenol] 325 mg tablet 325 mg PO QID PRN (Reason: Pain) Discharge Orders: Discharge Order (Routine); Ordered 09/07/22 Ordered By: Clifford Garza Referrals: Clifford Garza MD [Physician] - 09/22/22 8:00 am Discharge Diet: Advance as tolerated Discharge Activity: Limit activity as instructed Patient Instructions: Opioid Safety Activity Restrictions/Additional Instructions: Okay to shower. No soaking incision in tub Removal OpSite dressing in 48 hours Apply FirstIce up to 20 min/hr for pain and swelling Take Celebrex twice a day for the next 15 days for pain , discontinue other anti-inflammatories Take Tylenol 500mg (up to 2 tabs) 3 times a day for mild pain take oxycodone for breakthrough pain. Exercises per Occupational Therapy IF HAVE ANY PROBLEMS OR QUESTIONS CALL [facility] AT AND ASK TO HAVE DR. GARZA PAGED. Discharge Attestations Time Spent in Discharge Care*: other Quality Metrics Clinical Quality Measures [ No reported AMI, CVA or VTE this stay] Coding Level of Care Code Acute g FW DC note Diagnoses Status post replacement of right shoulder joint Z96.611 Osteoarthritis of right shoulder M19.011
--- NOTE | 2022-09-07 12:19 | PC.CHAP ---
Pastoral Care Encounter/Spiritual Assessment Type of Contact [] Declined wireless internet installer visit [] Patient/Family/Request visit [] Outpatient visit [] Follow-up visit [] Physician referral [] Code/Alert [x] Routine visit [] Staff referral [] Actively dying [] Patient sleeping [] Family support [] [] Out of room [] Palliative care [] [] Receiving care in room [] Pre-surgical visit [] Trauma [] Long length of stay [] ICU visit [] Other: Relational/Emotional Strength [] Patient feels connected with others/family/visitors/staff [] Distress [] Loneliness/isolation [] Abandonment Spirituality of Patient [x] Person of Xochitl [] Attends Buddhist of their Xochitl [x] Believes in Prayer [] Reads Bible or Latter-Day materials [] There are Spiritual issues to be addressed Swimmer Interventions [x] Prayer [] Active listening [] Non-anxious presence [] Spiritual/emotional support [] Crisis/trauma care [] Spiritual counseling [] Bereavement support [] Provided bereavement packet [] Provided Bible/devotional materials [] Provided toy/stuffed animal, coloring book to patient or family member [] Provided Communion [] Anointing/[place] [] Salvation [x] Completed spiritual assessment [] Other: Impact on Illness or Injury [] Angry [] Fearful [] Anxious [] Often cries [] Exhaustion [] Unable to work [] Unable to attend restoration [] Unable to walk/stand [] Unable to read [] Unable to drive [] Unable to eat/drink [] Unable to sleep [] Unable to be with family [] Patient intubated [] Other: Summary Time spent with patient 5 min
== END 2022-09-07 12:12 | disposition home or self-care (01) ==
LOC: MEDSURG 09:57
PROVIDERS: Anesthesiology; Admitting Provider Orthopaedic Surgery; PCP Family Medicine; Visit Provider Orthopaedic Surgery
PROC: (CPT 23472; principal; 2022-09-06 07:00)
DX: M19.011 Primary osteoarthritis, right shoulder (principal); E66.01 Morbid (severe) obesity due to excess calories; Z68.43 Body mass index [BMI] 50.0-59.9, adult
CPT/HCPCS: 23472; 36415; 36416; 73030; 80048; 82962; 85025; 97165; 97530; C1776; G0378; J0171; J0690; J1100; J1580; J2370; J2405; J2704; J2710; J3010; J3490; J7030

== ENCOUNTER → 2022-09-22 07:55 | Outpatient (BNVA) | payer MEDICARE, SELFPAY | PROVIDERS: PCP Family Medicine; Visit Provider Orthopaedic Surgery | DX: Z96.611 Presence of right artificial shoulder joint (principal) | CPT/HCPCS: 99024 ==

== ENCOUNTER → 2022-10-06 08:39 | Outpatient (BNVA) | payer MEDICARE, SELFPAY | PROVIDERS: PCP Family Medicine; Visit Provider Nurse Practitioner Family | DX: Z96.611 Presence of right artificial shoulder joint (principal) | CPT/HCPCS: 73030; 99024 ==

== ENCOUNTER 2022-10-21 06:00 | Outpatient (RCR) | payer MEDICARE, SELFPAY | END 2022-10-23 23:59 | disposition home or self-care (01) | LOC: SPT 06:00 | PROVIDERS: PCP Family Medicine; Visit Provider Nurse Practitioner Family | DX: Z96.611 Presence of right artificial shoulder joint (principal) | CPT/HCPCS: 97110; 97161 ==

== ENCOUNTER 2022-10-24 06:00 | Outpatient (RCR) | payer MEDICARE, SELFPAY | END 2022-11-23 23:59 | disposition home or self-care (01) | LOC: SPT 06:00 | PROVIDERS: PCP Family Medicine; Visit Provider Nurse Practitioner Family | DX: Z47.1 Aftercare following joint replacement surgery (principal); Z96.611 Presence of right artificial shoulder joint | CPT/HCPCS: 97110 ==

== ENCOUNTER → 2022-11-05 09:11 | Outpatient (BNVA) | payer MEDICARE, SELFPAY | PROVIDERS: PCP Family Medicine; Visit Provider Nurse Practitioner Family | DX: I47.29 Other ventricular tachycardia (principal) | CPT/HCPCS: 99213 ==

== ENCOUNTER 2022-11-24 06:00 | Outpatient (RCR) | payer MEDICARE, SELFPAY | END 2022-12-21 23:59 | disposition home or self-care (01) | LOC: SPT 06:00 | PROVIDERS: PCP Family Medicine; Visit Provider Nurse Practitioner Family | DX: Z96.611 Presence of right artificial shoulder joint (principal) | CPT/HCPCS: 97110 ==

== ENCOUNTER 2022-12-22 06:00 | Outpatient (RCR) | payer MEDICARE, SELFPAY | END 2022-12-22 16:49 | disposition home or self-care (01) | LOC: SPT 06:00 | PROVIDERS: PCP Family Medicine; Visit Provider Nurse Practitioner Family | DX: Z96.611 Presence of right artificial shoulder joint (principal) | CPT/HCPCS: 97110 ==

== ENCOUNTER → 2023-01-04 08:43 | Outpatient (BNVA) | payer MEDICARE, SELFPAY | PROVIDERS: PCP Family Medicine; Visit Provider Nurse Practitioner Family | DX: Z47.89 Encounter for other orthopedic aftercare (principal); Z96.611 Presence of right artificial shoulder joint | CPT/HCPCS: 73030; 99213 ==

== ENCOUNTER → 2023-02-23 08:02 | Outpatient (BNVA) | payer MEDICARE, SELFPAY | PROVIDERS: PCP Family Medicine; Referring Provider Family Medicine; Visit Provider Nurse Practitioner Family | DX: L81.4 Other melanin hyperpigmentation (principal); D22.5 Melanocytic nevi of trunk; Z71.89 Other specified counseling; L85.3 Xerosis cutis; L57.0 Actinic keratosis; L71.8 Other rosacea | CPT/HCPCS: 99204 ==

== ENCOUNTER → 2023-03-02 12:25 | Outpatient (BNVA) | payer MEDICARE, SELFPAY | PROVIDERS: PCP Family Medicine; Visit Provider Internal Medicine Cardiovascular Disease | DX: I47.20 Ventricular tachycardia, unspecified (principal); R55 Syncope and collapse; G47.33 Obstructive sleep apnea (adult) (pediatric); E66.9 Obesity, unspecified; Z68.43 Body mass index [BMI] 50.0-59.9, adult | CPT/HCPCS: 99214 ==

== ENCOUNTER 2023-06-03 14:03 | Outpatient (CLI) | payer MEDICARE, SELFPAY ==
[2023-06-03 14:27] LABS: Basophils # 0.1 10^3/uL (0.0-0.1); Basophils % 0.8 %; Eosinophils # 0.1 10^3/uL (0.0-0.8); Eosinophils % 1.3 %; Hematocrit 43.6 % (37.0-47.0); Hemoglobin 13.7 g/dL (11.5-15.3); Lymphocytes # 2.4 10^3/uL (0.8-4.8); Lymphocytes % 24.1 %; Mean Corpuscular HGB Conc 31.4 g/dL (30.0-36.0); Mean Corpuscular Hemoglobin 28.3 pg (28.0-34.0); Mean Corpuscular Volume 90.1 fl (81-99); Mean Platelet Volume 11.1 fL (7.4-10.4); Monocytes # 0.6 10^3/uL (0.2-0.9); Monocytes % 6.1 %; Neutrophils # 6.66 10^3/uL (1.8-7.7); Neutrophils % 67.3 %; Nucleated Red Blood Cells % 0 %; Platelet Count 223 10^3/cmm (130-400); Red Blood Count 4.84 10^6/uL (4.1-5.3); Red Cell Distribution Width 14.7 % (12.1-15.1); White Blood Count 9.9 10^3/uL (4.0-10.0)
[2023-06-03 15:33] LABS: Alanine Aminotransferase 16 U/L (0-33); Albumin Level 3.9 g/dL (3.5-5.2); Alkaline Phosphatase 79 U/L (35-105); Anion Gap 14.7 (5-19); Aspartate Amino Transferase 19 U/L (0-32); Blood Urea Nitrogen 21 mg/dL (8-23); Calcium 10.1 mg/dL (8.5-10.5); Carbon Dioxide 23 mmol/L (22-29); Chloride 105 mmol/L (98-107); Creatine Phosphokinase 33 U/L (26-192); Globulin 2.8 g/dL (1.3-4.6); Glucose 85 mg/dL (65-115); Osmolality Calculated 288 mOsm/kg (285-295); Potassium 4.7 mmol/L (3.5-5.1); Sodium 138 mmol/L (136-145); Total Bilirubin 0.3 mg/dL (0.15-1.2); Total Protein 6.7 g/dL (6.6-8.7)
[2023-06-03 16:45] LABS: Free T4 Free Thyroxine 1.14 ng/dL (0.82-1.77)
[2023-06-06 10:44] LABS: 25 Hydroxy Vitamin D > 120 ng/mL (30-100)
== END 2023-06-03 14:04 | disposition home or self-care (01) ==
PROVIDERS: PCP Family Medicine; Visit Provider Family Medicine
DX: E55.9 Vitamin D deficiency, unspecified (principal); Z51.81 Encounter for therapeutic drug level monitoring; R53.81 Other malaise; R53.83 Other fatigue; R25.2 Cramp and spasm
CPT/HCPCS: 36415; 80053; 82306; 82550; 83735; 84439; 84443; 85025; 86141

== ENCOUNTER → 2023-06-22 13:40 | Outpatient (BNVA) | payer MEDICARE, SELFPAY | PROVIDERS: PCP Family Medicine; Visit Provider Nurse Practitioner Family | DX: L81.4 Other melanin hyperpigmentation (principal); D22.5 Melanocytic nevi of trunk; L71.8 Other rosacea; L57.8 Other skin changes due to chronic exposure to nonionizing radiation | CPT/HCPCS: 99214 ==

== ENCOUNTER → 2023-07-21 10:39 | Outpatient (BNVA) | payer MEDICARE, SELFPAY | PROVIDERS: PCP Family Medicine; Visit Provider Podiatrist Foot & Ankle Surgery | DX: M25.572 Pain in left ankle and joints of left foot (principal); M76.822 Posterior tibial tendinitis, left leg; M25.372 Other instability, left ankle | CPT/HCPCS: 73610; 99203 ==

== ENCOUNTER → 2023-08-18 08:38 | Outpatient (BNVA) | payer MEDICARE, SELFPAY | PROVIDERS: PCP Family Medicine; Visit Provider Podiatrist Foot & Ankle Surgery | DX: M25.372 Other instability, left ankle; M25.572 Pain in left ankle and joints of left foot | CPT/HCPCS: 99213 ==

== ENCOUNTER → 2024-08-08 07:58 | Outpatient (BNVA) | payer MEDICARE, SELFPAY | PROVIDERS: PCP Family Medicine; Visit Provider Podiatrist Foot & Ankle Surgery | DX: M77.42 Metatarsalgia, left foot; M25.872 Other specified joint disorders, left ankle and foot | CPT/HCPCS: 73630; 99213 ==

== ENCOUNTER 2024-08-28 10:50 | Outpatient (CLI) | payer MEDICARE, SELFPAY ==
--- NOTE | 2024-08-28 11:00 | US_ITS ---
WS: [id number] ULTRASOUND SOFT TISSUES LEFT foot HISTORY: rule out mortons neuroma COMPARISON: None available. TECHNIQUE: 2-D and color Doppler imaging is submitted. On the images submitted there is no soft tissue mass. No bursitis. US/US soft tissue/extremity [id number] IMPRESSION: No Gann's neuroma identified on the imaging submitted.
== END 2024-08-28 10:51 | disposition home or self-care (01) ==
LOC: RAD 10:52
PROVIDERS: PCP Family Medicine; Visit Provider Podiatrist Foot & Ankle Surgery
DX: M77.40 Metatarsalgia, unspecified foot (principal)
CPT/HCPCS: 76882

== ENCOUNTER → 2024-09-05 09:39 | Outpatient (BNVA) | payer MEDICARE, SELFPAY | PROVIDERS: PCP Family Medicine; Visit Provider Podiatrist Foot & Ankle Surgery | DX: M77.42 Metatarsalgia, left foot (principal); M25.872 Other specified joint disorders, left ankle and foot | CPT/HCPCS: 99213 ==

== ENCOUNTER 2024-10-02 17:13 | Inpatient (IN) | payer MEDICARE, SELFPAY ==
[2024-10-02] VITALS (60 sets, daily range): BP systolic 90–154; BP diastolic 72–103; PULSE 70–174; RESP 15–38; TEMP 36.3–36.9; O2SAT 85–98; BMI 60.3
--- NOTE | 2024-10-02 17:33 | ECG_ITS ---
[facility] Test Date: 2024-10-02 Pat Name: Daniela Hernandez Department: Room: Gender: Female Director Pharmacology: : [id number] Requested By: Hayden Don Order Number: [id number] Hyun MD: Dina Villatoro M.D. Measurements Intervals Rives Rate: 168 P: 0 GA: 0 QRS: -31 QRSD: 80 T: 74 QT: 278 QTc: 465 Interpretive Statements ATRIAL FIBRILLATION WITH RAPID VENTRICULAR RESPONSE LEFT AXIS DEVIATION [QRS AXIS < -30] LOW QRS VOLTAGE IN PRECORDIAL LEADS [QRS DEFLECTION < 1.0 mV IN CHEST LEADS] MINIMAL ST DEPRESSION [0.025+ mV ST DEPRESSION] CRITICAL TEST RESULT Compared to ECG 08/24/2022 11:27:09 Left-axis deviation now present ST (T wave) deviation now present Sinus rhythm no longer present Ventricular premature complex(es) no longer present Myocardial infarct finding no longer present Electronically Signed On 10-02-2024 19:14:40 [employer] M[employer] 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 [email or web address]
--- NOTE | 2024-10-02 17:34 | XRR_ITS ---
PROCEDURE INFORMATION: Exam: XR Chest Exam date and time: 10/02/2024 5:53 PM Age: 69 years old Clinical indication: Dyspnea TECHNIQUE: Imaging protocol: Radiologic exam of the chest. Views: 1 view. COMPARISON: CR XR shoulder RT min 2V* [id number] 01/04/2023 8:43 AM FINDINGS: Lungs: Patchy bilateral largely right lower lobe ground-glass airspace opacities reflecting alveolar edema and/or pneumonic infiltrates. Pleural spaces: Unremarkable. No pleural effusion. No pneumothorax. Heart/Mediastinum: Cardiomegaly. Bones/joints: Unremarkable. XR/XR chest 1V portable [id number] IMPRESSION: 1. Patchy bilateral largely right lower lobe ground-glass airspace opacities reflecting alveolar edema and/or pneumonic infiltrates. 2. Cardiomegaly.
--- NOTE | 2024-10-02 17:42 | ED_ITS ---
Documented by User: Hayden Denny DO 10/03/24 05:49 HPI - SOB/Dyspnea 2 General: Chief Complaint: Shortness of Breath/Dyspnea Stated Complaint: rapid heart rate, SOB Time Seen by Provider: 10/02/24 17:23 History of Present Illness: HPI Narrative: 69-year-old female with a known history of A-fib presents emergency room after being seen in her doctor's office she was noted to be in A-fib with RVR I directed here she has had some chest pain shortness of breath intermittently and orthopnea. This been going on for the last several days. She has known history of atrial fibrillation she is on room very low-dose of diltiazem at 15 mg once a day she is not on any anticoagulation no history of any coronary artery disease. Associated symptoms: Reports chest pain and orthopnea; Deny abdominal pain or fever(s) Related Data Home Medications Medication Instructions Recorded Confirmed aspirin 325 mg tablet 325 mg PO DAILY 11/05/22 10/03/24 magnesium glycinate 250 mg PO BEDTIME 06/03/23 10/03/24 zinc gluconate 20 mg tablet 20 mg PO DAILY 06/03/23 10/03/24 Previous Rx's Medication Instructions Recorded sole supports #1 ea 08/08/24 diltiazem HCl 30 mg tablet 15 mg (1/2 x 30 mg) PO BID #60 tabs 09/26/24 (Cardizem) Allergies Allergy/AdvReac Type Severity Reaction Status Date / Time No Known Allergies Allergy Verified 10/02/24 17:20 Review of Systems 2 Const: Denies: fever(s) or chills Card: Reports: chest pain, edema, swelling of feet/ankles, dyspnea on exertion and orthopnea Resp: Denies: dyspnea GI: Denies: abdominal pain : Denies: dysuria, urinary frequency or urinary urgency Musc: Denies: neck pain or back pain Skin/Breast: Denies: rash PFSH ED 2 PFSH: Medical History IRAJ (obstructive sleep apnea) Uses CPAP Obesity Surgical History S/P knee replacement S/P bladder repair S/P cholecystectomy S/P hysterectomy Family History Mother , from PE CAD (coronary artery disease) Pulmonary embolism Father , from MG Myasthenia gravis Social History Smoking and tobacco/nicotine status: never used tobacco/nicotine Physical Exam 2 Const: GENERAL APPEARANCE: cooperative ORIENTATION/CONSCIOUSNESS: Yes awake, Yes oriented to person, Yes oriented to place and Yes oriented to time HENMT: COMMON NORMALS: normocephalic, atraumatic and hearing grossly normal bilaterally HEAD & SCALP: normocephalic and atraumatic Resp: COMMON NORMALS: normal respiratory effort, No retractions and No use of accessory muscles AUSCULTATION: crackles Cardio: COMMON NORMALS: No murmurs present (Cardio) RATE: tachycardic R HYTHM: abnormal rhythm irregularly irregular GI: COMMON NORMALS: Soft to palpation and No hepatosplenomegaly present A USCULTATION: Yes normoactive bowel sounds PALPATION: Yes Soft to palpation, No Tenderness to palpation present (GI), No Guarding due to palpation present (GI) and Yes No hepatosplenomegaly present Extremity: COMMON NORMALS: normal to inspection and capillary refill normal NARRATIVE EXTREMITY EXAM: +2 lower extremity edema Neuro: SENSORIUM/ORIENTATION: Yes oriented to person, Yes oriented to place and Yes oriented to time Skin: COMMON NORMALS: no rashes or lesions noted GENERAL SKIN EXAM: no rashes or lesions noted Course 2 Vital Signs: Vital signs: Vital Signs Temperature 97.9 F 10/03/24 04:00 Pulse Rate 137 H 10/03/24 04:00 Respiratory Rate 19 H 10/03/24 04:00 Blood Pressure 124/91 10/03/24 04:00 Pulse Oximetry 95 10/03/24 04:00 Oxygen Delivery Me thod Room Air 10/03/24 04:00 Oxygen Flow Rate 2 10/02/24 19:45 MDM - SOB/Dyspnea Medical Decision Making Patient presents in A-fib with RVR. Cardizem initiated with titrating up but patient is not responding well will likely have to be transitioned to amiodarone. Chest x-ray shows changes consistent with congestive heart failure, likely due to her A-fib. She is not currently on much for rate control or for anticoagulation. Will need further evaluation care signed out to Dr. Salgado at change of shift. See final notes for diagnosis and disposition. Patient care transferred over to myself at shift change, patient was on and Cardizem drip maxed out with no relief. We switched her over to an amiodarone drip and bolus, patient's rate is decreased from the 160s to the 130s. Lab work is starting to come back. We have back so far is essentially unremarkable. Chest x-ray does show possible edema versus pneumonic infiltrate, white count is normal at 10.7, Dr. Doss was consulted and agreed for inpatient treatment. Lab Data 10/02/24 17:50 10/03/24 03:30 Labs/Radiology: Radiology Impressions Chest X-Ray 10/02/24 17:34 IMPRESSION: 1. Patchy bilateral largely right lower lobe ground-glass airspace opacities reflecting alveolar edema and/or pneumonic infiltrates. 2. Cardiomegaly. Laboratory Results WBC 10.70 10^3/uL (3.29-11.43) 10/02/24 17:50 RBC 5.34 10^6/uL (3.85-5.65) 10/02/24 17:50 Hgb 15.10 g/dL (11.27-16.99) 10/02/24 17:50 Hct 48.0 % (36-47) H 10/02/24 17:50 MCV 89.9 fl (85-98) 10/02/24 17:50 MCH 28.3 pg (27-33) 10/02/24 17:50 MCHC 31.5 g/dL (30-55) 10/02/24 17:50 RDW 16.2 % (12.1-15.1) H 10/02/24 17:50 Plt Count 245 10^3/cmm (157-399) 10/02/24 17:50 MPV 11.4 fL (7.4-10.4) H 10/02/24 17:50 Neut % (Auto) 69.3 % 10/02/24 17:50 Lymph % (Auto) 22.5 % 10/02/24 17:50 Hickory % (Auto) 5.3 % 10/02/24 17:50 Eos % (Auto) 2.1 % 10/02/24 17:50 Baso % (Auto) 0.5 % 10/02/24 17:50 Neut # (Auto) 7.41 10^3/uL (1.8-7.7) 10/02/24 17:50 Lymph # (Auto) 2.4 10^3/uL (0.8-4.8) 10/02/24 17:50 [place] # (Auto) 0.6 10^3/uL (0.2-0.9) 10/02/24 17:50 Eos # (Auto) 0.2 10^3/uL (0.0-0.8) 10/02/24 17:50 Baso # (Auto) 0.1 10^3/uL (0.0-0.1) 10/02/24 17:50 Nucleated RBC % (auto) 0 % 10/02/24 17:50 Nucleated RBCs # 0.0 /100WBC 10/02/24 17:50 Sodium 139 mmol/L (136-145) 10/02/24 17:50 Potassium 4.7 mmol/L (3.5-5.1) 10/02/24 17:50 Chloride 103 mmol/L (98-107) 10/02/24 17:50 Carbon Dioxide 19 mmol/L (22-29) L 10/02/24 17:50 Anion Gap 21.7 (5-19) H 10/02/24 17:50 BUN 15 mg/dL (8-23) 10/02/24 17:50 Creatinine 0.8 mg/dL (0.5-0.9) 10/02/24 17:50 GFR Calculation Not Reportable 10/02/24 17:50 Glucose 91 mg/dL (65-115) 10/02/24 17:50 Calculated Osmolality 288 mOsm/kg (285-295) 10/02/24 17:50 Calcium 10.1 mg/dL (8.5-10.5) 10/02/24 17:50 Total Bilirubin 0.8 mg/dL (0.15-1.2) 10/02/24 17:50 AST 25 U/L (0-32) 10/02/24 17:50 ALT 32 U/L (0-33) 10/02/24 17:50 Alkaline Phosphatase 112 U/L (35-105) H 10/02/24 17:50 Troponin T Baseline 11 ng/L (0-10) H 10/02/24 17:50 NT-Pro-B Natriuret Pep 2094 pg/mL (0-125) H 10/02/24 17:50 Total Protein 7.8 g/dL (6.6-8.7) 10/02/24 17:50 Albumin 4.1 g/dL (3.5-5.2) 10/02/24 17:50 Globulin 3.7 g/dL (1.3-4.6) 10/02/24 17:50 TSH 3.96 uIU/mL (0.27-4.20) 10/02/24 17:50 Discharge Plan Discharge Patient Disposition: Admitted As Inpatient Admit Provider: Mami Doss Clinical Impression: Atrial fibrillation with rapid ventricular response Condition: Stable Coding Level of Care Code ED Office Machine Mechanic for Chg Fwd Documented by User: Daniele Salgado DO 10/02/24 19:40 HPI - SOB/Dyspnea 2 General: Chief Complaint: Shortness of Breath/Dyspnea Stated Complaint: rapid heart rate, SOB Time Seen by Provider: 10/02/24 17:23 History of Present Illness: HPI Narrative: Patient presents to the ER with shortness of breath and heart racing. She said this has been more or less steady since a couple days after [place]. Patient does have a history of A-fib and also V. tach. Patient takes diltiazem 30 mg half a tablet twice a day. Patient has seen Dr. Ibrahim in the past. Patient states she never been in the hospital for this. Patient says she gets this pretty frequent but usually only last a couple hours but this time is lasted couple weeks. Related Data Home Medications Medication Instructions Recorded Confirmed aspirin 325 mg tablet 325 mg PO DAILY 11/05/22 10/03/24 magnesium glycinate 250 mg PO BEDTIME 06/03/23 10/03/24 zinc gluconate 20 mg tablet 20 mg PO DAILY 06/03/23 10/03/24 Previous Rx's Medication Instructions Recorded sole supports #1 ea 08/08/24 diltiazem HCl 30 mg tablet 15 mg (1/2 x 30 mg) PO BID #60 tabs 09/26/24 (Cardizem) Allergies Allergy/AdvReac Type Severity Reaction Status Date / Time No Known Allergies Allergy Verified 10/02/24 17:20 PFSH ED 2 PFSH: Medical History IRAJ (obstructive sleep apnea) Uses CPAP Obesity Surgical History S/P knee replacement S/P bladder repair S/P cholecystectomy S/P hysterectomy Family History Mother , from PE CAD (coronary artery disease) Pulmonary embolism Father , from [place] Myasthenia gravis Social History Smoking and tobacco/nicotine status: never used tobacco/nicotine Course 2 Vital Signs: Vital signs: Vital Signs Temperature 97.9 F 10/03/24 04:00 Pulse Rate 137 H 10/03/24 04:00 Respiratory Rate 19 H 10/03/24 04:00 Blood Pressure 124/91 10/03/24 04:00 Pulse Oximetry 95 10/03/24 04:00 Oxygen Delivery Me thod Room Air 10/03/24 04:00 Oxygen Flow Rate 2 10/02/24 19:45 MDM - SOB/Dyspnea Medical Decision Making Patient care transferred over to myself at shift change, patient was on and Cardizem drip maxed out with no relief. We switched her over to an amiodarone drip and bolus, patient's rate is decreased from the 160s to the 130s. Lab work is starting to come back. We have back so far is essentially unremarkable. Chest x-ray does show possible edema versus pneumonic infiltrate, white count is normal at 10.7, Dr. Doss was consulted and agreed for inpatient treatment. Lab Data 10/02/24 17:50 10/03/24 03:30 Labs/Radiology: Radiology Impressions Chest X-Ray 10/02/24 17:34 IMPRESSION: 1. Patchy bilateral largely right lower lobe ground-glass airspace opacities reflecting alveolar edema and/or pneumonic infiltrates. 2. Cardiomegaly. Laboratory Results WBC 10.70 10^3/uL (3.29-11.43) 10/02/24 17:50 RBC 5.34 10^6/uL (3.85-5.65) 10/02/24 17:50 Hgb 15.10 g/dL (11.27-16.99) 10/02/24 17:50 Hct 48.0 % (36-47) H 10/02/24 17:50 MCV 89.9 fl (85-98) 10/02/24 17:50 MCH 28.3 pg (27-33) 10/02/24 17:50 MCHC 31.5 g/dL (30-55) 10/02/24 17:50 RDW 16.2 % (12.1-15.1) H 10/02/24 17:50 Plt Count 245 10^3/cmm (157-399) 10/02/24 17:50 MPV 11.4 fL (7.4-10.4) H 10/02/24 17:50 Neut % (Auto) 69.3 % 10/02/24 17:50 Lymph % (Auto) 22.5 % 10/02/24 17:50 [place] % (Auto) 5.3 % 10/02/24 17:50 Eos % (Auto) 2.1 % 10/02/24 17:50 Baso % (Auto) 0.5 % 10/02/24 17:50 Neut # (Auto) 7.41 10^3/uL (1.8-7.7) 10/02/24 17:50 Lymph # (Auto) 2.4 10^3/uL (0.8-4.8) 10/02/24 17:50 [place] # (Auto) 0.6 10^3/uL (0.2-0.9) 10/02/24 17:50 Eos # (Auto) 0.2 10^3/uL (0.0-0.8) 10/02/24 17:50 Baso # (Auto) 0.1 10^3/uL (0.0-0.1) 10/02/24 17:50 Nucleated RBC % (auto) 0 % 10/02/24 17:50 Nucleated RBCs # 0.0 /100WBC 10/02/24 17:50 Sodium 139 mmol/L (136-145) 10/02/24 17:50 Potassium 4.7 mmol/L (3.5-5.1) 10/02/24 17:50 Chloride 103 mmol/L (98-107) 10/02/24 17:50 Carbon Dioxide 19 mmol/L (22-29) L 10/02/24 17:50 Anion Gap 21.7 (5-19) H 10/02/24 17:50 BUN 15 mg/dL (8-23) 10/02/24 17:50 Creatinine 0.8 mg/dL (0.5-0.9) 10/02/24 17:50 GFR Calculation Not Reportable 10/02/24 17:50 Glucose 91 mg/dL (65-115) 10/02/24 17:50 Calculated Osmolality 288 mOsm/kg (285-295) 10/02/24 17:50 Calcium 10.1 mg/dL (8.5-10.5) 10/02/24 17:50 Total Bilirubin 0.8 mg/dL (0.15-1.2) 10/02/24 17:50 AST 25 U/L (0-32) 10/02/24 17:50 ALT 32 U/L (0-33) 10/02/24 17:50 Alkaline Phosphatase 112 U/L (35-105) H 10/02/24 17:50 Troponin T Baseline 11 ng/L (0-10) H 10/02/24 17:50 NT-Pro-B Natriuret Pep 2094 pg/mL (0-125) H 10/02/24 17:50 Total Protein 7.8 g/dL (6.6-8.7) 10/02/24 17:50 Albumin 4.1 g/dL (3.5-5.2) 10/02/24 17:50 Globulin 3.7 g/dL (1.3-4.6) 10/02/24 17:50 TSH 3.96 uIU/mL (0.27-4.20) 10/02/24 17:50 All radiology interpretation(s) finalized by discharge Discharge Plan Discharge Patient Disposition: Admitted As Inpatient Admit Provider: Mami Doss Clinical Impression: Atrial fibrillation with rapid ventricular response Condition: Stable Coding Level of Care Code ED Office Machine Mechanic for Daniele Gannon
[2024-10-02] MEDS: dilTIAZem 100 MG in sodium chloride 0.9% (add-van) 100 ML IV (17:58)
[2024-10-02] MEDS: dilTIAZem 5 mg/mL SDV 5 mL 20 MG IVP (17:58)
[2024-10-02 18:03] LABS: Basophils # 0.1 10^3/uL (0.0-0.1); Basophils % 0.5 %; Eosinophils # 0.2 10^3/uL (0.0-0.8); Eosinophils % 2.1 %; Lymphocytes # 2.4 10^3/uL (0.8-4.8); Lymphocytes % 22.5 %; Mean Corpuscular HGB Conc 31.5 g/dL (30-55); Mean Corpuscular Hemoglobin 28.3 pg (27-33); Mean Corpuscular Volume 89.9 fl (85-98); Mean Platelet Volume 11.4 fL (7.4-10.4); Monocytes # 0.6 10^3/uL (0.2-0.9); Monocytes % 5.3 %; Neutrophils # 7.41 10^3/uL (1.8-7.7); Neutrophils % 69.3 %; Nucleated Red Blood Cells % 0 %; Platelet Count 245 10^3/cmm (157-399); Red Blood Count 5.34 10^6/uL (3.85-5.65); Red Cell Distribution Width 16.2 % (12.1-15.1)
[2024-10-02] MEDS: amiodarone 150 MG/100 ML PREMIX 400 MG IV (18:33)
[2024-10-02 19:18] LABS: Troponin(5th) Baseline 11 ng/L (0-10)
[2024-10-02 19:28] LABS: Alanine Aminotransferase 32 U/L (0-33); Albumin Level 4.1 g/dL (3.5-5.2); Alkaline Phosphatase 112 U/L (35-105); Blood Urea Nitrogen 15 mg/dL (8-23); Calcium 10.1 mg/dL (8.5-10.5); Carbon Dioxide 19 mmol/L (22-29); Chloride 103 mmol/L (98-107); Creatinine Clr Calc Pharmacy 91.5734; Globulin 3.7 g/dL (1.3-4.6); Glucose 91 mg/dL (65-115); NT Pro B Type Natriuretic Pept 2094 pg/mL (0-125); Osmolality Calculated 288 mOsm/kg (285-295); Sodium 139 mmol/L (136-145); Thyroid Stimulating Hormone 3.96 uIU/mL (0.27-4.20); Total Bilirubin 0.8 mg/dL (0.15-1.2); Total Protein 7.8 g/dL (6.6-8.7)
[2024-10-02 19:31] LABS: Anion Gap 21.7 (5-19); Aspartate Amino Transferase 25 U/L (0-32); Potassium 4.7 mmol/L (3.5-5.1)
--- NOTE | 2024-10-02 19:31 | PM.HP ---
Providers/Chief Complaint Primary Care Provider: Matt Mercado MD Chief Complaint: rapid heart rate, SOB History of Present Illness Daniela Hernandez is a 69 year old female with history of A-fib, not on anticoagulating agent stopped taking her aspirin presenting with chief complaint of worsening of palpitations. Patient is stating that since Thanksgiving her palpitations has gotten worse, she has quit drinking caffeine, nowadays she is only using [place]. She does not have any thyroid abnormality, no history of coronary disease or [place] or diabetes. Patient is endorsing hypertension. She is CPAP for sleep apnea. Patient has not seen a casing running machine tender since Dr. Ibrahim left In the ER she was diagnosed with A-fib RVR which was not being controlled with Cardizem drip hence she was switched to amiodarone, With amiodarone she is still experiencing heart rate between 150s 160s, Patient is endorsing feeling tired lethargic, intermittent chest discomfort, with palpitations. No syncope, fever nausea vomiting or diarrhea. Review of Systems Const: Denies: fever(s) Eyes: Denies: change in vision ENMT: Denies: throat pain Card: Denies: chest pain Resp: Reports: dyspnea GI: Denies: abdominal pain : Denies: flank pain Musc: Denies: neck pain Skin/Breast: Denies: rash Medications/Allergies Home Medications Medication Instructions Recorded Confirmed Last Taken Type aspirin 325 mg tablet 325 mg PO DAILY 11/05/22 10/02/24 Unknown History magnesium glycinate 500 mg PO DAILY 06/03/23 10/02/24 Unknown History zinc gluconate 20 mg tablet 20 mg PO DAILY 06/03/23 10/02/24 Unknown History sole supports #1 ea 08/08/24 10/02/24 Unknown Rx diltiazem HCl 30 mg tablet 15 mg (1/2 x 30 mg) PO BID #60 tabs 09/26/24 10/02/24 Unknown Rx (Cardizem) Allergies Allergy/AdvReac Type Severity Reaction Status Date / Time No Known Allergies Allergy Verified 10/02/24 17:20 PFSH Acute PFSH: Medical History IRAJ (obstructive sleep apnea) Uses CPAP Obesity Surgical History S/P knee replacement S/P bladder repair S/P cholecystectomy S/P hysterectomy Family History Mother , from PE CAD (coronary artery disease) Pulmonary embolism Father , from [place] Myasthenia gravis Social History Smoking and tobacco/nicotine status: never used tobacco/nicotine Vitals/I&O/Wt Last Vital Signs Temp 97.4 F L 10/02/24 17:20 Pulse 154 H 10/02/24 19:00 Resp 24 H 10/02/24 19:00 BP 115/88 10/02/24 19:00 Pulse Ox 96 10/02/24 19:00 10/02/24 10/02/24 10/02/24 06:59 14:59 22:59 Intake Total 5.208 / 5.208 Balance 5.208 / 5.208 Weight last 48 hrs Weight 149.685 kg Physical Exam Narrative: Patient is sitting comfortably in her recliner Morbidly obese Currently on 2 L A-fib RVR On amiodarone GCS 15 No sign of heart failure Pleasant and cooperative Nonfocal neuroexam Nondistended nontender abdomen Variable S1-S2 No audible stridor or wheezing No active signs of confusion Data 10/02/24 17:50 10/02/24 17:50 A&P Assessment and plan (1) IRAJ (obstructive sleep apnea): (2) Malaise and fatigue: (3) Atrial fibrillation with rapid ventricular response: Plan A-fib RVR Currently on Cardizem and amiodarone drip Patient getting 4 g of mag sulfate as well Will request mag level No active chest pain or shortness of breath no active sign of heart failure History of sleep apnea currently on 2 L No active respiratory distress or chest pain Check TSH Serial troponin and EKG Patient is taking a very low-dose of Cardizem and not on any anticoagulating agent, [id number] 3 for age, sex, hypertension Will start her on therapeutic Lovenox, she will need Eliquis at time of discharge patient does not have any history of GI bleed Full code Cardiac diet Requested D-dimer Attestations Medical Necessity Statement*: Anticipating discharge within 48 hours Diagnoses IRAJ (obstructive sleep apnea) G47.33 Malaise and fatigue R53.81; R53.83 Atrial fibrillation with rapid ventricular response I48.91
--- NOTE | 2024-10-02 20:01 | ECG_ITS ---
[facility] Test Date: 2024-10-02 Pat Name: Daniela Hernandez Department: Room: Gender: Female Crater And Packer: : 1955 Requested By: Hayden Don Order Number: [id number] Hyun MD: Dina Villatoro M.D. Measurements Intervals [place] Rate: 165 P: 0 HI: 0 QRS: -21 QRSD: 81 T: 79 QT: 274 QTc: 455 Interpretive Statements ATRIAL FIBRILLATION WITH RAPID VENTRICULAR RESPONSE LOW QRS VOLTAGE [QRS DEFLECTION < 0.5/1.0 mV IN LIMB/CHEST LEADS] POSSIBLE ANTERIOR MYOCARDIAL INFARCTION , PROBABLY OLD [30 ms Q WAVE IN V3/V4, OR R < 0.2 mV IN V4] CRITICAL TEST RESULT Compared to ECG 10/02/2024 17:33:41 Myocardial infarct finding now present Left-axis deviation no longer present ST (T wave) deviation no longer present Electronically Signed On 10-03-2024 01:06:27 STACKER AND SORTER OPERATOR by Dina Villatoro M.D. [id number]
[2024-10-02 20:10] LABS: Bilirubin Urine Negative (Negative); Blood Urine Negative (Negative); Glucose Urine UA Negative (Normal); Ketones Urine Trace (Negative); Leukocyte Esterase Urine Negative (Negative); Nitrate Urine Negative (Negative); Protein Urine Negative (Negative); Specific Gravity, Urine 1.014 (1.005-1.030); Urine Appearance Clear (CLEAR); Urine Color Yellow (Yellow)
[2024-10-02 20:15] LABS: Add Urine Microscopic? YES; Bacteria Urine None Seen /hpf; Hyaline Casts Urine 0-4 /lpf; RBC Urine 0-2 /hpf (0-2); Squamous Epithelial Cell Urine 0-5 /hpf (0-5); WBC Urine 0-5 /hpf (0-5)
[2024-10-02] MEDS: magnesium sulfate premix 4 GM/100 ML PREMIX IV (20:31)
[2024-10-02 20:39] LABS: D Dimer 0.99 ug/mLFEU (0-0.59)
[2024-10-02 20:49] LABS: Troponin 5 2HR 9.77 ng/L (0-10)
[2024-10-02 20:52] LABS: Troponin 5 2HR Delta -1.23 ABS# (0-10)
[2024-10-02 21:28] LABS: Magnesium 2.3 mg/dL (1.7-2.3)
[2024-10-02] MEDS: FUROsemide 10 mg/mL SDV 2mL 20 MG IVP (21:55)
[2024-10-02] MEDS: dilTIAZem 100 MG in sodium chloride 0.9% (add-van) 100 ML 10 MG IV (22:46)
[2024-10-02] MEDS: digoxin 250 mcg/ml INJ 2 mL 500 MCG IVP (23:26)
[2024-10-02] MEDS: acetaminophen 500 mg Tablet PO (23:35)
[2024-10-02] MEDS: enoxaparin 150 mg/mL Syringe SUBCUT (23:36)
[2024-10-02] MEDS: dilTIAZem 30 mg Tablet PO (23:38)
--- NOTE | 2024-10-02 23:59 | ECG_ITS ---
[facility] [employer] Test Date: 2024-10-02 Pat Name: Daniela Hernandez Department: Room: 108 Gender: Female Ben Day Artist: : 1955 Requested By: Hayden Don Order Number: [id number] Hyun MD: Dina Villatoro M.D. Measurements Intervals [place] Rate: 148 P: 0 OR: 0 QRS: -39 QRSD: 81 T: 130 QT: 300 QTc: 471 Interpretive Statements ATRIAL FIBRILLATION WITH RAPID VENTRICULAR RESPONSE LEFT AXIS DEVIATION [QRS AXIS < -30] LOW QRS VOLTAGE IN PRECORDIAL LEADS [QRS DEFLECTION < 1.0 mV IN CHEST LEADS] POSSIBLE ANTERIOR MYOCARDIAL INFARCTION , PROBABLY OLD [30 ms Q WAVE IN V3/V4, OR R < 0.2 mV IN V4] Compared to ECG 10/02/2024 20:01:43 Left-axis deviation now present Myocardial infarct finding still present Electronically Signed On 10-03-2024 01:06:30 EDGE GLUER by Dina Villatoro M.D. [email or web address]
[2024-10-03] VITALS (9 sets, daily range): BP systolic 115–143; BP diastolic 77–114; PULSE 125–160; RESP 19–30; TEMP 36.3–37; O2SAT 95–97
[2024-10-03 00:08] LABS: Troponin 5 6HR 10.12 ng/L (0-10)
[2024-10-03 00:13] LABS: Troponin 5 6HR Delta -0.88 ng/L (0-12)
--- NOTE | 2024-10-03 01:50 | PC.NURSE ---
Called and spoke with regarding patients hr still running 130-160s after IVP digoxin, still on IV amiodarone gtt and IV Cardizem gtt with no change in HR. No new orders at this time, was made aware.
[2024-10-03] MEDS: dilTIAZem 100 MG in sodium chloride 0.9% (add-van) 100 ML 15 MG IV ×4 (02:40→22:51)
[2024-10-03 04:14] LABS: Anion Gap 17.3 (5-19); Blood Urea Nitrogen 13 mg/dL (8-23); Calcium 9.5 mg/dL (8.5-10.5); Carbon Dioxide 20 mmol/L (22-29); Chloride 105 mmol/L (98-107); Glucose 126 mg/dL (65-115); Magnesium 2.8 mg/dL (1.7-2.3); Osmolality Calculated 288 mOsm/kg (285-295); Phosphorus 3.6 mg/dL (2.5-4.5); Potassium 4.3 mmol/L (3.5-5.1); Sodium 138 mmol/L (136-145)
[2024-10-03] MEDS: dilTIAZem 30 mg Tablet PO ×2 (04:24→10:59)
[2024-10-03] MEDS: FUROsemide 20 mg Tablet PO (08:04)
[2024-10-03] MEDS: potassium chloride ER 20 mEq Tablet 40 MEQ PO (08:04)
--- NOTE | 2024-10-03 09:20 | PC.CHAP ---
Pastoral Care Encounter/Spiritual Assessment Type of Contact [] Declined hardwood floor installation helper visit [] Patient/Family/Request visit [] Outpatient visit [] Follow-up visit [] Physician referral [] Code/Alert [x] Routine visit [] Staff referral [] Actively dying [] Patient sleeping [] Family support [] [] Out of room [] Palliative care [] [] Receiving care in room [] Pre-surgical visit [] Trauma [] Long length of stay [] ICU visit [] Other: Relational/Emotional Strength [x] Patient feels connected with others/family/visitors/staff [] Distress [] Loneliness/isolation [] Abandonment Spirituality of Patient [x] Person of Xochitl [] Attends Advent of their Xochitl [x] Believes in Prayer [] Reads Bible or Mandaeism materials [] There are Spiritual issues to be addressed Sap Pp Consultant Interventions [x] Prayer [x] Active listening [] Non-anxious presence [x] Spiritual/emotional support [] Crisis/trauma care [] Spiritual counseling [] Bereavement support [] Provided bereavement packet [] Provided Bible/devotional materials [] Provided toy/stuffed animal, coloring book to patient or family member [] Provided Communion [] Anointing/[place] [] Salvation [x] Completed spiritual assessment [] Other: Impact on Illness or Injury [] Angry [] Fearful [] Anxious [] Often cries [] Exhaustion [] Unable to work [] Unable to attend oriental orthodox [] Unable to walk/stand [] Unable to read [] Unable to drive [] Unable to eat/drink [] Unable to sleep [] Unable to be with family [] Patient intubated [] Other: Summary Time spent with patient
[2024-10-03] MEDS: enoxaparin 150 mg/mL Syringe SUBCUT ×2 (10:59→22:50)
[2024-10-03] MEDS: metoprolol tartrate 1 mg/1 mL SDV 5 mL 2.5 MG IVP (12:43)
--- NOTE | 2024-10-03 13:59 | P.PN_ITS ---
Subjective 2 Subjective: Continues to have persistent A-fib with heart rate in 130s 140s. Medications: Reviewed: Yes Vitals/I&O/Wt Last Vital Signs Temp 98.1 F 10/03/24 11:21 Pulse 139 H 10/03/24 11:21 Resp 26 H 10/03/24 11:21 BP 129/105 10/03/24 11:21 Pulse Ox 97 10/03/24 11:21 O2 Del Method Nasal Cannula 10/03/24 11:21 O2 Flow Rate 2 10/03/24 11:21 10/02/24 10/03/24 10/03/24 22:59 06:59 14:59 Intake Total 219.083 / 219.083 641.925 / 861.008 540 / 540 Output Total 930 / 930 250 / 250 Balance 219.083 / 219.083 -288.075 / -68.992 290 / 290 Weight last 48 hrs Weight 154.312 kg Weight 154.312 kg Weight 149.685 kg Physical Exam 2 Narrative: General: No acute distress, AO x3 HEENT: PERRLA, pupils bilaterally equal and reactive, pallors not present Chest: Normal vesicular breath sounds, no added sounds, equal good air entry bilaterally CVS: S1-S2 regular, no murmurs, no tachycardia, no gallops, no rubs Abdomen: Soft, nontender, no organomegaly, bowel sounds present Neuro: No focal deficits, no facial deformity, AO x3, power 5/5 in all limbs Data 10/02/24 17:50 10/03/24 03:30 A&P Assessment and plan (1) IRAJ (obstructive sleep apnea): (2) Malaise and fatigue: (3) Atrial fibrillation with rapid ventricular response: Plan A-fib RVR Currently on Cardizem and amiodarone drip Patient getting 4 g of mag sulfate as well Will request mag level No active chest pain or shortness of breath no active sign of heart failure History of sleep apnea currently on 2 L No active respiratory distress or chest pain Check TSH Serial troponin and EKG Patient is taking a very low-dose of Cardizem and not on any anticoagulating agent, [id number] 3 for age, sex, hypertension Will start her on therapeutic Lovenox, she will need Eliquis at time of discharge patient does not have any history of GI bleed Full code Cardiac diet Requested D-dimer 10/03/2024 Patient continues to be persistently in A-fib RVR with heart rate 1 30-1 40. She is currently on amiodarone, diltiazem at 15 mg/h, oral Cardizem, received digoxin 500 mcg overnight, received 5 mg of IV metoprolol, getting second dose of digoxin 250 mcg now. Consulting cardiology to assess for cardioversion. Troponin baseline at 11, 2-hour at 9.7, 6-hour at 10.1, o significant delta at 2 or 6 hrs Attestations 2 Medical Necessity Statement*: Greater than 2 midnight stay is anticipated changed to inpatient admission Coding Level of Care Code Acute Code for Chg Fwd High MDM includes number and complexity of problems actively addressed during encounter, amount and/or complexity of data reviewed/ordered and described risk of complication, morbidity or mortality of management as documented Diagnoses IRAJ (obstructive sleep apnea) G47.33 Malaise and fatigue R53.81; R53.83 Atrial fibrillation with rapid ventricular response I48.91
[2024-10-03] MEDS: digoxin 250 mcg/ml INJ 2 mL IVP (14:31)
[2024-10-03] MEDS: metoprolol tartrate 25 mg Tablet PO (16:28)
[2024-10-03] MEDS: FUROsemide 10 mg/mL SDV 4mL 40 MG IVP (19:07)
--- NOTE | 2024-10-03 20:04 | P.CONIM_ITS ---
<Statement entered by Mami Alfonso MD - 10/04/24 22:01> Patient was evaluated and cared for in conjunction with an advanced practice practitioner. I personally examined the patient and reviewed the chart and all pertinent data including imaging, telemetry, and laboratory results. I discussed the patient in detail with the advanced practice practitioner. Please see their note for complete H&P testing result and agreed upon plan of care for the patient. 69-year-old female past medical history significant for uncontrolled hypertension obesity obstructive sleep apnea presented with A-fib RVR difficult to control. GENERAL: Patient is alert, awake and oriented x3. HEART: Irregularly irregular S1 and S2. No murmur, rub or gallop. LUNGS: Clear to auscultate bilaterally. CENTRAL NERVOUS SYSTEM: Grossly nonfocal. EXTREMITIES: Lower extremities with out edema bilaterally. Assessment plan New onset of atrial fibrillation with rapid ventricular sponsor Uncontrolled hypertension Obesity Continue IV amiodarone, Cardizem drip add beta-darrell N.p.o. overnight for possible NEW guided cardioversion Echocardiogram will be obtained to assess LV function further plan be advised after the Providers/Reason For Consult 2 Consulting Physician/Specialty*: Dr. Alfonso Reason for Consult*: Afib rvr Requesting Physician: Dr. Lackey Attending Physician: Mikayla Lackey MD Primary Care Provider: Matt Mercado MD History of Present Illness History of Present Illness Daniela Hernandez is a very pleasant 69 year old female with history of tachycardia, not on anticoagulating agent stopped taking her aspirin presented to the ER with chief complaint of worsening of palpitations. Patient is stating that since Thanksgiving her palpitations has gotten worse. No history of coronary disease or PA or diabetes. Hx of sleep apnea in which she is compliant with CPAP for. She has a hx of hypertension. She used to see a tight rope walker, but has not in quite some time. In the ER she was diagnosed with A-fib RVR which was not being controlled with Cardizem drip hence she was switched to amiodarone, with amiodarone she was still experiencing heart rate between 150s 160s, She received IV digoxin and lopressor and is currently on amio and cardizem drip. HR is now in the 130s, but slightly improved. At this time, she denies chest pain, shortness of breath, dizziness, or syncopal episodes. Review of Systems 2 Narrative: Consitutional: denies fever, chills, body aches, or changes in appetite, denies abnormal weight loss Eyes: Denies changes in vision Card: Denies chest pain, reports palpitations, reports irregular heart rhythm, reports chronic edema, denies syncope, reports shortness of breath on exertion relieved with rest, denies orthopnea, leg pain with exertion Resp: Denies shortness of breath, denies hemoptysis, denies cough GI: denies abdominal pain, denies nausea or voimting, denies blood in stool : denies blood in urine, denies dysuria Musc: Denies extremity pain, denies limited range of motion or recent injury Skin: Denies rash, lesions, or wounds, denies changes to skin color Neuro: Denies nubmness in extremities, h/a, s/s of stroke Alex: Denies easy bruiding/bleeding All: Denies s/s of allergies Medications/Allergies Home Medications Medication Instructions Recorded Confirmed Last Taken Type aspirin 325 mg tablet 325 mg PO DAILY 11/05/22 10/03/24 Unknown History magnesium glycinate 250 mg PO BEDTIME 06/03/23 10/03/24 10/02/24 History zinc gluconate 20 mg tablet 20 mg PO DAILY 06/03/23 10/03/24 10/02/24 History sole supports #1 ea 08/08/24 10/03/24 Unknown Rx diltiazem HCl 30 mg tablet 15 mg (1/2 x 30 mg) PO BID #60 tabs 09/26/24 10/03/24 10/02/24 Rx (Cardizem) Allergies Allergy/AdvReac Type Severity Reaction Status Date / Time No Known Allergies Allergy Verified 10/02/24 17:20 Current Medications Generic Name Dose Route Start Last Admin Trade Name Freq PRN Reason Stop Dose Admin Acetaminophen 500 mg 10/02/24 22:41 10/02/24 23:35 Acetaminophen 500 Mg Tablet PO 500 mg Q4H PRN Administration fever Enoxaparin Sodium 150 mg 10/02/24 23:15 10/03/24 10:59 Enoxaparin 150 Mg/Ml Syringe SUBCUT 150 mg Q12H SARAI Administration Furosemide 20 mg 10/03/24 08:00 10/03/24 08:04 Furosemide 20 Mg Tablet PO 20 mg DAILY@0800 SARAI Administration Furosemide 40 mg 10/03/24 18:00 10/03/24 19:07 Furosemide 10 Mg/Ml Sdv 4ml IVP 40 mg Q24H SARAI Administration Amiodarone HCl/Dextrose 360 mg in 200 mls @ 0 mls/hr 10/02/24 18:21 10/03/24 12:43 Nexterone IV 0.5 mg/min .Q0M SARAI 16.67 mls/hr Administration Protocol Per Protocol Diltiazem HCl 100 mg/ Sodium 100 mls @ 0 mls/hr 10/02/24 20:15 10/03/24 15:57 Chloride IV 15 mg/hr .Q0M SARAI 15 mls/hr Administration Protocol Per Protocol Metoprolol Tartrate 25 mg 10/03/24 16:15 10/03/24 16:28 Metoprolol Tartrate 25 Mg Tablet PO 25 mg Q12H SARAI Administration Potassium Chloride 40 meq 10/03/24 09:00 10/03/24 08:04 Potassium Chloride Er 20 Meq Tablet PO 40 meq DAILY SARAI Administration PFSH Acute 2 PFSH: Medical History (Updated 10/03/24 @ 21:45 by Valorie Jerome NP) Obesity Surgical History S/P knee replacement S/P bladder repair S/P cholecystectomy S/P hysterectomy Family History Mother , from PE CAD (coronary artery disease) Pulmonary embolism Father , from MG Myasthenia gravis Social History Smoking and tobacco/nicotine status: never used tobacco/nicotine Vitals/I&O/Wt Last Vital Signs Temp 97.3 F L 10/03/24 16:00 Pulse 134 H 10/03/24 16:00 Resp 30 H 10/03/24 16:00 BP 117/89 10/03/24 16:00 Pulse Ox 95 10/03/24 16:00 O2 Del Method Nasal Cannula 10/03/24 16:00 O2 Flow Rate 2 10/03/24 16:00 10/03/24 10/03/24 10/03/24 06:59 14:59 22:59 Intake Total 641.925 / 861.008 540 / 540 97.75 / 637.75 Output Total 930 / 930 250 / 250 1000 / 1250 Balance -288.075 / -68.992 290 / 290 -902.25 / -612.25 Weight last 48 hrs Weight 340 lb 3.2 oz Weight 340 lb 3.2 oz Weight 330 lb Physical Exam 2 Narrative: No acute distress alert and oriented x4 Heart rate irregularly irregular, s1 s2 normal, no murmurs present 1+ edema bilateral lower extremities abdomen nondistended lungs clear throughout all lung luu Data 10/02/24 17:50 10/03/24 03:30 A&P Assessment and plan (1) Atrial fibrillation with rapid ventricular response: (2) Tachycardia: (3) Obesity: (4) IRAJ (obstructive sleep apnea): Plan At this time, patient is in afib rvr rate of 130s despite multiple attempts at chemical cardioversion and rate control. At this time, she does not have any chest pain, dizziness, or severe symptoms. The plan is to add metoprolol PO, continue current drips, NEW guided cardioversion tomorrow at 12. NPO midnight. Patient has been educated on the procedure as well as risks and benefits and fully agrees to proceed. Thank you, Dr. Lackey, for allowing us to care for this patient. Consult Attestations 2 Medical Necessity Statement: Patient stay expected to cross 2 midnights due to afib rvr requiring NWE guided cardioversion. Coding Level of Care Code Acute Code for [facility] Fwd Diagnoses Atrial fibrillation with rapid ventricular response I48.91 Tachycardia R00.0 Obesity E66.9 IRAJ (obstructive sleep apnea) G47.33
[2024-10-03] MEDS: ondansetron 2 mg/ML SDV 2 mL 4 MG IVP (21:52)
[2024-10-04] VITALS (12 sets, daily range): BP systolic 103–153; BP diastolic 70–101; PULSE 58–154; RESP 16–22; TEMP 36.3–37; O2SAT 90–100
[2024-10-04] MEDS: metoprolol tartrate 25 mg Tablet PO (04:15)
[2024-10-04] MEDS: dilTIAZem 100 MG in sodium chloride 0.9% (add-van) 100 ML 15 MG IV (05:37)
[2024-10-04 08:55] LABS: Basophils # 0.1 10^3/uL (0.0-0.1); Basophils % 0.5 %; Eosinophils # 0.1 10^3/uL (0.0-0.8); Eosinophils % 0.7 %; Hematocrit 44.4 % (36-47); Lymphocytes # 1.7 10^3/uL (0.8-4.8); Lymphocytes % 16.6 %; Mean Corpuscular HGB Conc 30.9 g/dL (30-55); Mean Corpuscular Hemoglobin 28.3 pg (27-33); Mean Corpuscular Volume 91.7 fl (85-98); Mean Platelet Volume 10.9 fL (7.4-10.4); Monocytes # 0.7 10^3/uL (0.2-0.9); Monocytes % 6.6 %; Neutrophils # 7.72 10^3/uL (1.8-7.7); Neutrophils % 75.3 %; Nucleated Red Blood Cells % 0 %; Platelet Count 215 10^3/cmm (157-399); Red Blood Count 4.84 10^6/uL (3.85-5.65); Red Cell Distribution Width 16.1 % (12.1-15.1); White Blood Count 10.25 10^3/uL (3.29-11.43)
[2024-10-04 09:12] LABS: Anion Gap 17.2 (5-19); Blood Urea Nitrogen 16 mg/dL (8-23); Calcium 8.8 mg/dL (8.5-10.5); Carbon Dioxide 21 mmol/L (22-29); Chloride 102 mmol/L (98-107); Glucose 111 mg/dL (65-115); Osmolality Calculated 284 mOsm/kg (285-295); Potassium 4.2 mmol/L (3.5-5.1); Sodium 136 mmol/L (136-145)
--- NOTE | 2024-10-04 09:45 | P.PN_ITS ---
Subjective 2 Subjective: planned for NEW cardioversion today as continues to be in persistent A fib with RVR, HR 140s. Net negative 1L Medications: Reviewed: Yes Vitals/I&O/Wt Last Vital Signs Temp 98.6 F 10/04/24 20:00 Pulse 61 10/04/24 20:00 Resp 22 H 10/04/24 20:00 BP 138/70 10/04/24 20:00 Pulse Ox 95 10/04/24 20:00 O2 Del Method Room Air 10/04/24 20:00 O2 Flow Rate 2 10/04/24 13:25 10/04/24 10/04/24 10/04/24 06:59 14:59 22:59 Intake Total 300 / 1037.75 200 / 200 460 / 660 Output Total 200 / 2250 500 / 500 Balance 100 / -1212.25 200 / 200 -40 / 160 Weight last 48 hrs Weight 154.312 kg Weight 154.312 kg Weight 154.312 kg Physical Exam 2 Narrative: General: No acute distress, AO x3 HEENT: PERRLA, pupils bilaterally equal and reactive, pallors not present Chest: Normal vesicular breath sounds, no added sounds, equal good air entry bilaterally CVS: tachycardia, irregular Neuro: No focal deficits, no facial deformity, AO x3, power 5/5 in all limbs EXT : 3+ pitting edema B/L Data 10/04/24 08:48 10/04/24 08:48 A&P Assessment and plan (1) IRAJ (obstructive sleep apnea): (2) Malaise and fatigue: (3) Atrial fibrillation with rapid ventricular response: Plan A-fib RVR Currently on Cardizem and amiodarone drip Patient getting 4 g of mag sulfate as well Will request mag level No active chest pain or shortness of breath no active sign of heart failure History of sleep apnea currently on 2 L No active respiratory distress or chest pain Check TSH Serial troponin and EKG Patient is taking a very low-dose of Cardizem and not on any anticoagulating agent, [id number] 3 for age, sex, hypertension Will start her on therapeutic Lovenox, she will need Eliquis at time of discharge patient does not have any history of GI bleed Full code Cardiac diet Requested D-dimer 10/03/2024 Patient continues to be persistently in A-fib RVR with heart rate 1 30-1 40. She is currently on amiodarone, diltiazem at 15 mg/h, oral Cardizem, received digoxin 500 mcg overnight, received 5 mg of IV metoprolol, getting second dose of digoxin 250 mcg now. Consulting cardiology to assess for cardioversion. Troponin baseline at 11, 2-hour at 9.7, 6-hour at 10.1, o significant delta at 2 or 6 hrs 10/04/24 : Persistent A fib with HR 130-140 inspite of amio, cardizem, digoxin and metorprolol - Planned for NEW cardioversion today. Continuing anticoagulation Attestations 2 Medical Necessity Statement*: NEW cardioversion today Coding Level of Care Code Acute Code for [facility] Fwd Moderate MDM includes number and complexity of problems actively addressed during encounter, amount and/or complexity of data reviewed/ordered and described risk of complication, morbidity or mortality of management as documented Diagnoses IRAJ (obstructive sleep apnea) G47.33 Malaise and fatigue R53.81; R53.83 Atrial fibrillation with rapid ventricular response I48.91
[2024-10-04] MEDS: enoxaparin 150 mg/mL Syringe SUBCUT (10:00)
[2024-10-04] MEDS: pantoprazole 40 mg SDV IVP ×2 (10:00→21:09)
--- NOTE | 2024-10-04 10:23 | P.PN_ITS ---
<Statement entered by Mami Alfonso MD - 10/04/24 20:39> Patient was evaluated and cared for in conjunction with an advanced practice practitioner. I personally examined the patient and reviewed the chart and all pertinent data including imaging, telemetry, and laboratory results. I discussed the patient in detail with the advanced practice practitioner. Please see their note for complete H&P testing result and agreed upon plan of care for the patient. Transesophageal echo guided electrical cardioversion was performed today. Patient converted back to sinus rhythm GENERAL: Patient is alert, awake and oriented x3. HEART: Regular S1 and S2. No murmur, rub or gallop. LUNGS: Clear to auscultate bilaterally. CENTRAL NERVOUS SYSTEM: Grossly nonfocal. EXTREMITIES: Lower extremities with out edema bilaterally. Assessment and plan New onset of atrial fibrillation Hypertension NEW guided electrical cardioversion remained successful Switch to p.o. Cardizem 130 mg and 25 mg of metoprolol. Will will start oral anticoagulation Subjective 2 Subjective: Patient seen this morning with overall no complaints. Denies chest pain or shortness of breath. Sitting comfortably in bed. Plan is for cardioversion today with NEW around 12:00. Currently NPO. Medications: Reviewed: Yes Vitals/I&O/Wt Last Vital Signs Temp 98.2 F 10/04/24 07:45 Pulse 154 H 10/04/24 10:08 Resp 18 10/04/24 10:08 BP 103/77 10/04/24 07:45 Pulse Ox 98 10/04/24 10:08 O2 Del Method Nasal Cannula 10/04/24 10:08 O2 Flow Rate 2 10/04/24 10:08 10/03/24 10/04/24 10/04/24 22:59 06:59 14:59 Intake Total 197.75 / 737.75 300 / 1037.75 Output Total 1800 / 2050 200 / 2250 Balance -1602.25 / -1312.25 100 / -1212.25 Weight last 48 hrs Weight 340 lb 3.2 oz Weight 340 lb 3.2 oz Weight 340 lb 3.2 oz Weight 330 lb Physical Exam 2 Narrative: No acute distress alert and oriented x4 Heart rate irregularly irregular, s1 s2 normal, no murmurs present 1+ edema bilateral lower extremities abdomen nondistended lungs clear throughout all lung luu Data 10/04/24 08:48 10/04/24 08:48 A&P Assessment and plan (1) Atrial fibrillation with rapid ventricular response: (2) Tachycardia: (3) Obesity: (4) IRAJ (obstructive sleep apnea): Plan At this time, patient is in afib rvr rate of 130s despite multiple attempts at chemical cardioversion and rate control. At this time, she does not have any chest pain, dizziness, or severe symptoms. The plan is to add metoprolol PO, continue current drips, NEW guided cardioversion tomorrow at 12. NPO midnight. Patient has been educated on the procedure as well as risks and benefits and fully agrees to proceed. Attestations 2 Medical Necessity Statement*: Patient stay expected to cross 2 midnights due to A-fib RVR requiring NEW guided cardioversion Coding Level of Care Code Acute Code for [facility] Fw Diagnoses Atrial fibrillation with rapid ventricular response I48.91 Tachycardia R00.0 Obesity E66.9 IRAJ (obstructive sleep apnea) G47.33
--- NOTE | 2024-10-04 12:00 | USCV_ITS ---
Daniela Hernandez Age: 69 Gender: F : 1955 Exam Date: 10/04/2024 12:57 Ordering Phys: Valorie Jerome NP Technologist: Exam Location: [facility] [place] Indication: afib BP: / HR: Rhythm: Sinus Technical Quality: Fair MEASUREMENTS (Male / Female) Normal Values Medications Patient given IV sedation by anesthesia service, for details please refer to the anesthesia report. Complications None. Proc. Components The patient was brought to the NEW examination room in a fasting state after obtaining an informed consent. The NEW probe was passed into the posterior pharynx , mid-esophagus, distal esophagus, and gastric fundus. NEW was performed at multiple levels. FINDINGS Left Ventricle Normal left ventricular size, systolic function and wall thickness, with no regional wall motion abnormalities. Left ventricular ejection fraction is estimated at 55 %. Right Ventricle The right ventricle is normal in size and function. Right Atrium The right atrium is normal in size. Left Atrium Moderately increased left atrial size. LA Appendage Normal left atrial appendage. No thrombus visualized in the left atrial appendage. IA Septum Normal interatrial septum. No [id number] shunt seen at the atrial level. No xdnll-nw-roru shunt seen at the atrial level with contrast. Mitral Valve Structurally normal mitral valve without significant stenosis or prolapse. There is no mitral regurgitation. Aortic Valve Structurally normal aortic valve without significant sclerosis or stenosis. There is no aortic regurgitation. Tricuspid Valve Trace tricuspid valve regurgitation. Pulmonic Valve Trace pulmonary valve regurgitation. Pericardium Normal pericardium without effusion. Aorta Normal ascending aorta dimension. CONCLUSIONS Normal left ventricular size, systolic function and wall thickness, with no regional wall motion abnormalities. Left ventricular ejection fraction is estimated at 55 %. Moderately increased left atrial size. Normal left atrial appendage. No thrombus visualized in the left atrial appendage. Normal interatrial septum. No bnqc-by-urhru shunt seen at the atrial level. No vdqgb-ek-[id number] shunt seen at the atrial level with contrast. There is no pericardial effusion. No significant valve abnormalities. Mami Alfonso MD (Electronically Signed) Final Date: 07 October 2024 21:03 S
--- NOTE | 2024-10-04 12:05 | P.ANESASSM_ITS ---
Pre-Anesthetic Assessment Height/Weight: Height 5 ft 2 in Weight 340 lb 3.2 oz Temp Pulse Resp BP Pulse Ox O2 Del Method O2 Flow Rate 98.2 F 154 H 18 103/77 98 Nasal Cannula 2 10/04/24 07:45 10/04/24 10:08 10/04/24 10:08 10/04/24 07:45 10/04/24 10:08 10/04/24 10:08 10/04/24 10:08 Medications/Allergies Home Medications Medication Instructions Recorded Confirmed Last Taken Type aspirin 325 mg tablet 325 mg PO DAILY 11/05/22 10/03/24 Unknown History magnesium glycinate 250 mg PO BEDTIME 06/03/23 10/03/24 10/02/24 History zinc gluconate 20 mg tablet 20 mg PO DAILY 06/03/23 10/03/24 10/02/24 History sole supports #1 ea 08/08/24 10/03/24 Unknown Rx diltiazem HCl 30 mg tablet 15 mg (1/2 x 30 mg) PO BID #60 tabs 09/26/24 10/03/24 10/02/24 Rx (Cardizem) Allergies Allergy/AdvReac Type Severity Reaction Status Date / Time No Known Allergies Allergy Verified 10/02/24 17:20 Current Medications Generic Name Dose Route Start Last Admin Trade Name Freq PRN Reason Stop Dose Admin Acetaminophen 500 mg 10/02/24 22:41 10/02/24 23:35 Acetaminophen 500 Mg Tablet PO 500 mg Q4H PRN Administration fever Enoxaparin Sodium 150 mg 10/02/24 23:15 10/04/24 10:00 Enoxaparin 150 Mg/Ml Syringe SUBCUT 150 mg Q12H SARAI Administration Furosemide 40 mg 10/03/24 18:00 10/03/24 19:07 Furosemide 10 Mg/Ml Sdv 4ml IVP 40 mg Q24H SARAI Administration Amiodarone HCl/Dextrose 360 mg in 200 mls @ 0 mls/hr 10/02/24 18:21 10/04/24 00:55 Nexterone IV 0.5 mg/min .Q0M SARAI 16.67 mls/hr Administration Protocol Per Protocol Diltiazem HCl 100 mg/ Sodium 100 mls @ 0 mls/hr 10/02/24 20:15 10/04/24 05:37 Chloride IV 15 mg/hr .Q0M SARAI 15 mls/hr Administration Protocol Per Protocol Metoprolol Tartrate 25 mg 10/03/24 16:15 10/04/24 04:15 Metoprolol Tartrate 25 Mg Tablet PO 25 mg Q12H SARAI Administration Ondansetron HCl 4 mg 10/02/24 22:41 10/03/24 21:52 Ondansetron 2 Mg/Ml Sdv 2 Ml IVP 4 mg Q6H PRN Administration NAUSEA AND VOMITING Pantoprazole Sodium 40 mg 10/04/24 10:00 10/04/24 10:00 Pantoprazole 40 Mg Sdv IVP 40 mg Q12H SARAI Administration Potassium Chloride 40 meq 10/03/24 09:00 10/03/24 08:04 Potassium Chloride Er 20 Meq Tablet PO 40 meq DAILY SARAI Administration PFSH Anesthesia Medical History (Updated 10/03/24 @ 21:45 by Valorie Jerome NP) Obesity Surgical History S/P knee replacement S/P bladder repair S/P cholecystectomy S/P hysterectomy Family History Mother , from PE CAD (coronary artery disease) Pulmonary embolism Father , from MG Myasthenia gravis Social History Smoking and tobacco/nicotine status: never used tobacco/nicotine Data Anesthesia 10/04/24 08:48 10/04/24 08:48 Short CBC 10/02/24 10/04/24 Range/Units 17:50 08:48 WBC 10.70 10.25 (3.29-11.43) 10^3/uL Hgb 15.10 13.70 (11.27-16.99) g/dL Hct 48.0 H 44.4 (36-47) % MCV 89.9 91.7 (85-98) fl Plt Count 245 215 (157-399) 10^3/cmm Neut % (Auto) 69.3 75.3 % Neut # (Auto) 7.41 7.72 H (1.8-7.7) 10^3/uL BMP 10/02/24 10/03/24 10/04/24 17:50 03:30 08:48 Sodium 139 138 136 Potassium 4.7 4.3 4.2 Chloride 103 105 102 Carbon Dioxide 19 L 20 L 21 L BUN 15 13 16 Creatinine 0.8 0.8 0.7 Glucose 91 126 H 111 Calcium 10.1 9.5 8.8 Cardiac Enzymes 10/02/24 10/02/24 10/02/24 Range/Units 17:50 20:09 23:38 Troponin T Baseline 11 H (0-10) ng/L Troponin T 120 Minute 9.77 (0-10) ng/L Delta Troponin T -1.23 L (0-10) ABS# Troponin T Hi Sens 6Hr 10.12 H (0-10) ng/L Troponin T Hi Sens 6Hr Delta -0.88 L (0-12) ng/L NT-Pro-B Natriuret Pep 2094 H (0-125) pg/mL Liver Function 10/02/24 Range/Units 17:50 Total Bilirubin 0.8 (0.15-1.2) mg/dL AST 25 (0-32) U/L ALT 32 (0-33) U/L Alkaline Phosphatase 112 H (35-105) U/L Albumin 4.1 (3.5-5.2) g/dL Urine 10/02/24 Range/Units 19:49 Urine Color Yellow (Yellow) Urine Appearance Clear (CLEAR) Urine pH 6.0 (5-7) Ur Specific [place] 1.014 (1.005-1.030) Urine Protein Negative (Negative) Urine Glucose (UA) Negative (Normal) Urine Ketones Trace (Negative) Urine Nitrate Negative (Negative) Urine Bilirubin Negative (Negative) Ur Leukocyte Esterase Negative (Negative) Urine RBC 0-2 (0-2) /hpf Urine WBC 0-5 (0-5) /hpf Coags 10/02/24 20:09 D-Dimer 0.99 H Cardiac Studies: 2 Sestamibi Stress Test (Cardiology) 10/19 Cardiac Event Monitor 10/27/21
--- NOTE | 2024-10-04 12:46 | W.PM.OPSUD ---
Surgery/Procedure H&P Update DATE OF PROCEDURE: October 04, 2024 DATE H&P PERFORMED: 10/03/24 H&P UPDATE INFORMATION: I have reviewed H&P completed within last 30 days, I have examined patient prior to procedure and No changes to prior documentation PREOP DIAGNOSIS: Atrial fibrillation uncontrolled PRIMARY INDICATION FOR PROCEDURE: NEW guided cardioversion planned for uncontrolled atrial fibrillation new onset PLANNED PROCEDURE: Operation Date: 10/04/24 12:00 Proposed Procedures p NEW(Not Applicable) - Mami Alfonso MD s Cardioversion(Not Applicable) - Mami Alfonso MD Please see anesthesia PHYSICAL EXAM: alert, oriented x 3, clear to auscultation bilaterally and regular rate & rhythm (Irregularly irregular)
--- NOTE | 2024-10-04 14:45 | PC.NURSE ---
return from gi lab via bed at 1340.now sr/sb after eusebio/cardioversion.pt is awake and alert and oriented x 4.no difficulty swallowing though does have a bit of a cough.instructed to notify staff if must get up out iof bed..or if has any sob,pain,or for any concerns at all.pt verb understanding of instructions
[2024-10-04] MEDS: FUROsemide 10 mg/mL SDV 4mL 40 MG IVP (16:04)
[2024-10-04] MEDS: potassium chloride ER 20 mEq Tablet 40 MEQ PO (16:04)
[2024-10-04] MEDS: dilTIAZem ER (24HR) 120 mg Capsule PO (21:08)
[2024-10-04] MEDS: apixaban 5 mg Tablet PO (21:08)
[2024-10-04] MEDS: metoprolol succinate ER (24 HR) 25 mg Tablet 12.5 MG PO (21:08)
[2024-10-05] VITALS: BP 92/42; PULSE 70; RESP 18; TEMP 37.2; O2SAT 89
[2024-10-05 04:00] VITALS: BP 118/43; PULSE 69; RESP 26; TEMP 37.2; O2SAT 90
[2024-10-05 04:06] LABS: Basophils # 0.1 10^3/uL (0.0-0.1); Basophils % 0.8 %; Eosinophils # 0.2 10^3/uL (0.0-0.8); Eosinophils % 1.8 %; Hematocrit 40.5 % (36-47); Lymphocytes # 2.3 10^3/uL (0.8-4.8); Lymphocytes % 22.4 %; Mean Corpuscular HGB Conc 31.6 g/dL (30-55); Mean Corpuscular Hemoglobin 28.4 pg (27-33); Mean Platelet Volume 11.5 fL (7.4-10.4); Monocytes # 0.7 10^3/uL (0.2-0.9); Monocytes % 6.6 %; Neutrophils # 7.06 10^3/uL (1.8-7.7); Nucleated Red Blood Cells % 0 %; Platelet Count 222 10^3/cmm (157-399); Red Cell Distribution Width 15.9 % (12.1-15.1); White Blood Count 10.38 10^3/uL (3.29-11.43)
[2024-10-05 04:52] LABS: Alanine Aminotransferase 20 U/L (0-33); Albumin Level 3.6 g/dL (3.5-5.2); Alkaline Phosphatase 97 U/L (35-105); Anion Gap 15.3 (5-19); Aspartate Amino Transferase 15 U/L (0-32); Blood Urea Nitrogen 18 mg/dL (8-23); Calcium 8.7 mg/dL (8.5-10.5); Carbon Dioxide 23 mmol/L (22-29); Chloride 103 mmol/L (98-107); Creatinine Clr Calc Pharmacy 83.0737; Globulin 2.6 g/dL (1.3-4.6); Glucose 92 mg/dL (65-115); Osmolality Calculated 286 mOsm/kg (285-295); Potassium 4.3 mmol/L (3.5-5.1); Sodium 137 mmol/L (136-145); Total Bilirubin 0.8 mg/dL (0.15-1.2); Total Protein 6.2 g/dL (6.6-8.7)
[2024-10-05 08:00] VITALS: BP 138/93; PULSE 58; RESP 24; TEMP 36.5; O2SAT 93
[2024-10-05] MEDS: pantoprazole 40 mg SDV IVP (08:28)
[2024-10-05] MEDS: potassium chloride ER 20 mEq Tablet 40 MEQ PO (08:29)
[2024-10-05] MEDS: metoprolol succinate ER (24 HR) 25 mg Tablet 12.5 MG PO (08:29)
[2024-10-05] MEDS: apixaban 5 mg Tablet PO (08:29)
[2024-10-05] MEDS: dilTIAZem ER (24HR) 120 mg Capsule PO (08:30)
--- NOTE | 2024-10-05 08:54 | PC.CHAP ---
Pastoral Care Encounter/Spiritual Assessment Type of Contact [] Declined jail officer visit [] Patient/Family/Request visit [] Outpatient visit [] Follow-up visit [] Physician referral [] Code/Alert [x] Routine visit [] Staff referral [] Actively dying [] Patient sleeping [] Family support [] [] Out of room [] Palliative care [] [] Receiving care in room [] Pre-surgical visit [] Trauma [] Long length of stay [] ICU visit [] Other: Relational/Emotional Strength [x] Patient feels connected with others/family/visitors/staff [] Distress [] Loneliness/isolation [] Abandonment Spirituality of Patient [x] Person of Xochitl [] Attends Faith of their Xochitl [x] Believes in Prayer [] Reads Bible or Methodist materials [] There are Spiritual issues to be addressed Communications Marketing Intern Interventions [x] Prayer [x] Active listening [x] Non-anxious presence [x] Spiritual/emotional support [] Crisis/trauma care [] Spiritual counseling [] Bereavement support [] Provided bereavement packet [] Provided Bible/devotional materials [] Provided toy/stuffed animal, coloring book to patient or family member [] Provided Communion [] Anointing/[place] [] Salvation [x] Completed spiritual assessment [] Other: Impact on Illness or Injury [] Angry [] Fearful [] Anxious [] Often cries [] Exhaustion [] Unable to work [] Unable to attend baptist [] Unable to walk/stand [] Unable to read [] Unable to drive [] Unable to eat/drink [] Unable to sleep [] Unable to be with family [] Patient intubated [] Other: Summary Time spent with patient 5 min
[2024-10-05 12:00] VITALS: BP 143/59; PULSE 60; RESP 23; TEMP 36.6
[2024-10-05 12:14] VITALS: O2SAT 95; O2SAT 97
[2024-10-05 12:28] VITALS: BP 143/59; PULSE 68; RESP 18; O2SAT 94
--- NOTE | 2024-10-05 13:03 | PC.SOCIAL ---
IMM Update pg 2 of IMM Updated and reviewed w/ patient. Copy provided and copy dated, initialed and placed in chart.
--- NOTE | 2024-10-05 13:46 | PC.NURSE ---
discharge instructions given and explained.pt verb understanding of instructions.discharged via w/c to exit at this time.so to drive pt home.
--- NOTE | 2024-10-05 15:14 | P.DS_ITS ---
Discharge Providers Date of Admission: 10/03/24 12:32 Date of Discharge: October 05, 2024 Attending Provider at Admission: Mami Doss MD Attending Provider at Discharge: Mikayla Lackey MD Primary Care Provider: Matt Mercado MD Diagnoses at Discharge Discharge Diagnosis (1) IRAJ (obstructive sleep apnea): Status: Acute Permanent problem details: Uses CPAP (2) Malaise and fatigue: Status: Acute (3) Atrial fibrillation with rapid ventricular response: Status: Acute Reason for Visit Reason for Visit: rapid heart rate, SOB Hospital Course Hospital Course Daniela Hernandez is a 69 year old female with history of A-fib, not on anticoagulating agent at a baseline presented to the hospital on October 02, 2024 with chief complaints of palpitations. Patient was noted to be in A-fib with RVR and acute on chronic CHF exacerbation. She was started on Cardizem infusion, which did not improve her heart rate, thereafter amiodarone infusion was added without any significant benefit. She received pushes of metoprolol and digoxin however continued to remain in persistent A-fib with RVR. Eventually patient was cardioverted on October 04, 2024. She had been initiated on anticoagulation with enoxaparin 1 mg/kg every 24 hours prior to the NEW cardioversion. Post cardioversion patient converted into normal sinus rhythm with heart rate ranging in the 60s. She feels much better since cardioversion. For her acute on chronic CHF exacerbation, likely triggered by A-fib RVR, she received diuresis with IV Lasix. Her lower extremity edema was improving by the time of discharge. She required supplemental O2 initially however post cardioversion she was able to be weaned off of oxygen. Home O2 eval was completed prior to discharge. She was saturating 95% at rest and 97% post exertion. Medications at discharge include Eliquis 5 mg p.o. twice daily, diltiazem extended release 120 mg p.o. daily, metoprolol 12.5 mg p.o. daily, potassium 20 mEq p.o. daily. Patient was previously supposed to be on aspirin which was discontinued with initiation of Eliquis. She is recommended to follow-up with primary care physician and cardiology within 1 week of discharge. She has been instructed to maintain a blood pressure and heart rate log at home, this would allow titration of medications as outpatient if needed. Physical Exam Narrative: General: No acute distress, AO x3 HEENT: PERRLA, pupils bilaterally equal and reactive, pallors not present Chest: Normal vesicular breath sounds, no added sounds, equal good air entry bilaterally CVS: S1-S2 regular, no murmurs, no tachycardia, no gallops, no rubs Abdomen: Soft, nontender, no organomegaly, bowel sounds present Neuro: No focal deficits, no facial deformity, AO x3, power 5/5 in all limbs Extremities: 3+ lower extremity pitting edema, improved over day of admission. Discharge Data Studies Completed and Pending Completed Studies During Hospitalization Category Date Time Status XR chest 1V portable [id number] Stat Exams 10/02/24 17:34 Completed Pending at discharge Category Date Time Status CV. echo transesophageal [id number] Urgent Ultrasound 10/04/24 12:00 Taken Radiology Impressions Chest X-Ray 10/02/24 17:34 IMPRESSION: 1. Patchy bilateral largely right lower lobe ground-glass airspace opacities reflecting alveolar edema and/or pneumonic infiltrates. 2. Cardiomegaly. Laboratory Results WBC 10.38 10^3/uL (3.29-11.43) 10/05/24 03:29 RBC 4.50 10^6/uL (3.85-5.65) 10/05/24 03:29 Hgb 12.80 g/dL (11.27-16.99) 10/05/24 03:29 Hct 40.5 % (36-47) 10/05/24 03:29 MCV 90.0 fl (85-98) 10/05/24 03:29 MCH 28.4 pg (27-33) 10/05/24 03:29 MCHC 31.6 g/dL (30-55) 10/05/24 03:29 RDW 15.9 % (12.1-15.1) H 10/05/24 03:29 Plt Count 222 10^3/cmm (157-399) 10/05/24 03:29 MPV 11.5 fL (7.4-10.4) H 10/05/24 03:29 Neut % (Auto) 68.0 % 10/05/24 03:29 Lymph % (Auto) 22.4 % 10/05/24 03:29 [place] % (Auto) 6.6 % 10/05/24 03:29 Eos % (Auto) 1.8 % 10/05/24 03:29 Baso % (Auto) 0.8 % 10/05/24 03:29 Neut # (Auto) 7.06 10^3/uL (1.8-7.7) 10/05/24 03:29 Lymph # (Auto) 2.3 10^3/uL (0.8-4.8) 10/05/24 03:29 [place] # (Auto) 0.7 10^3/uL (0.2-0.9) 10/05/24 03:29 Eos # (Auto) 0.2 10^3/uL (0.0-0.8) 10/05/24 03:29 Baso # (Auto) 0.1 10^3/uL (0.0-0.1) 10/05/24 03:29 Nucleated RBC % (auto) 0 % 10/05/24 03:29 Nucleated RBCs # 0.0 /100WBC 10/05/24 03:29 D-Dimer 0.99 ug/mLFEU (0-0.59) H 10/02/24 20:09 Sodium 137 mmol/L (136-145) 10/05/24 03:29 Potassium 4.3 mmol/L (3.5-5.1) 10/05/24 03:29 Chloride 103 mmol/L (98-107) 10/05/24 03:29 Carbon Dioxide 23 mmol/L (22-29) 10/05/24 03:29 Anion Gap 15.3 (5-19) 10/05/24 03:29 BUN 18 mg/dL (8-23) 10/05/24 03:29 Creatinine 0.9 mg/dL (0.5-0.9) 10/05/24 03:29 GFR Calculation Not Reportable 10/05/24 03:29 Glucose 92 mg/dL (65-115) 10/05/24 03:29 Calculated Osmolality 286 mOsm/kg (285-295) 10/05/24 03:29 Calcium 8.7 mg/dL (8.5-10.5) 10/05/24 03:29 Phosphorus 3.6 mg/dL (2.5-4.5) 10/03/24 03:30 Magnesium 2.8 mg/dL (1.7-2.3) H 10/03/24 03:30 Total Bilirubin 0.8 mg/dL (0.15-1.2) 10/05/24 03:29 AST 15 U/L (0-32) 10/05/24 03:29 ALT 20 U/L (0-33) 10/05/24 03:29 Alkaline Phosphatase 97 U/L (35-105) 10/05/24 03:29 Troponin T Baseline 11 ng/L (0-10) H 10/02/24 17:50 Troponin T 120 Minute 9.77 ng/L (0-10) 10/02/24 20:09 Delta Troponin T -1.23 ABS# (0-10) L 10/02/24 20:09 Troponin T Hi Sens 6Hr 10.12 ng/L (0-10) H 10/02/24 23:38 Troponin T Hi Sens 6Hr Delta -0.88 ng/L (0-12) L 10/02/24 23:38 NT-Pro-B Natriuret Pep 2094 pg/mL (0-125) H 10/02/24 17:50 Total Protein 6.2 g/dL (6.6-8.7) L 10/05/24 03:29 Albumin 3.6 g/dL (3.5-5.2) 10/05/24 03:29 Globulin 2.6 g/dL (1.3-4.6) 10/05/24 03:29 TSH 3.96 uIU/mL (0.27-4.20) 10/02/24 17:50 Urine Color Yellow (Yellow) 10/02/24 19:49 Urine Appearance Clear (CLEAR) 10/02/24 19:49 Urine pH 6.0 (5-7) 10/02/24 19:49 Ur Specific [place] 1.014 (1.005-1.030) 10/02/24 19:49 Urine Protein Negative (Negative) 10/02/24 19:49 Urine Glucose (UA) Negative (Normal) 10/02/24 19:49 Urine Ketones Trace (Negative) 10/02/24 19:49 Urine Blood Negative (Negative) 10/02/24 19:49 Urine Nitrate Negative (Negative) 10/02/24 19:49 Urine Bilirubin Negative (Negative) 10/02/24 19:49 Urine Urobilinogen 1.0 mg/dL (Negative) 10/02/24 19:49 Ur Leukocyte Esterase Negative (Negative) 10/02/24 19:49 Urine RBC 0-2 /hpf (0-2) 10/02/24 19:49 Urine WBC 0-5 /hpf (0-5) 10/02/24 19:49 Ur Squamous Epith Cells 0-5 /hpf (0-5) 10/02/24 19:49 Amorphous Sediment Not Reportable 10/02/24 19:49 Urine Bacteria None seen /hpf (NONE) 10/02/24 19:49 Hyaline Casts 0-4 /lpf H 10/02/24 19:49 Vitals Last Vital Signs Temp 97.9 F 10/05/24 12:00 Pulse 68 10/05/24 12:28 Resp 18 10/05/24 12:28 BP 143/59 10/05/24 12:28 Pulse Ox 94 10/05/24 12:28 O2 Del Method Room Air 10/05/24 08:00 O2 Flow Rate 2 10/04/24 13:25 Discharge Plan Discharge Patient Disposition: Home Condition: Stable Prescriptions: New potassium chloride [Klor-Con M20] 20 mEq Tablet,Er Particles/Crystals 20 meq PO DAILY 30 Days Qty: 30 0RF diltiazem HCl 120 mg Capsule,Extended Release 24hr 120 mg PO DAILY 30 Days Qty: 60 0RF metoprolol succinate 25 mg Tablet Extended Release 24 Hr 12.5 mg PO DAILY 30 Days Qty: 60 0RF Eliquis 5 mg Tablet 5 mg PO BID@0900,2100 30 Days Qty: 60 0RF furosemide [Lasix] 40 mg tablet 40 mg PO DAILY 30 Days Qty: 30 0RF Continued magnesium glycinate 100 mg magnesium capsule 250 mg PO BEDTIME zinc gluconate 20 mg tablet 20 mg PO DAILY Discontinued aspirin 325 mg tablet 325 mg PO DAILY diltiazem HCl [Cardizem] 30 mg tablet 15 mg PO BID Qty: 60 0RF No Action (DME) sole supports See Rx Instructions .Route .MEDSUPPLY Qty: 1 0RF Rx Instructions: As directed Discharge Orders: Discharge Order (Routine); Ordered 10/05/24 Ordered By: Mikayla Lackey Referrals: Lucía Patel FNP [Nurse Practitioner] - 10/09/24 3:30 pm Matt Mercado MD [Primary Care Provider] - 10/12/24 10:50 am Discharge Diet: Cardiac Discharge Activity: Increase activity as tolerated Patient Instructions: Atrial Fibrillation, Metoprolol (By mouth), Diltiazem (By mouth), Furosemide (By mouth), Potassium Chloride (By mouth), Apixaban (By mouth), Opioid Safety, Stroke Stoplight Activity Restrictions/Additional Instructions: please maintain BP and HR diary as discussed by checking twice a day and bring it to PCP and cardiology f/up for review Discharge Attestations Time Spent in Discharge Care*: greater than 30 min Quality Metrics Clinical Quality Measures [ No reported AMI, CVA or VTE this stay] Coding Level of Care Code Acute Code for Chg Fwd Diagnoses IRAJ (obstructive sleep apnea) G47.33 Malaise and fatigue R53.81; R53.83 Atrial fibrillation with rapid ventricular response I48.91
--- NOTE | 2024-10-07 20:50 | PM.PROC ---
Procedure Note: Date of procedure: 10/04/24 Pre-procedure diagnosis: Atrial fibrillation rapid ventricular response Post-procedure diagnosis: other (Sinus rhythm) Procedure: Transesophageal echocardiographic DC cardioversion After explaining all risk-benefit and alternative for the procedure form consent was obtained. Please see anesthesia note for anesthesia administration. Transesophageal echocardiogram was performed under deep anesthesia. Intracardiac thrombus was ruled out. Transesophageal echocardiographic probe was taken out of the body. After confirming deep anesthesia using biphasic defibrillator 120 J of shock was delivered which converted patient to sinus rhythm. Patient recovered without any complication and transferred back to the [facility]. Performing Provider: Mami Alfonso Estimated blood loss (mL): 0 Complications: None Coding Level of Care Code [facility]
== END 2024-10-05 13:47 | disposition home or self-care (01) | DRG 309 ==
LOC: ER 20:46 → MEDSURG 21:18 → CSU 21:27
PROVIDERS: Internal Medicine Cardiovascular Disease; Admitting Provider Internal Medicine; Emergency Provider Family Medicine; PCP Family Medicine; Visit Provider Student in an Organized Health Care Education/Training Program
PROC: B24BZZ4 Ultrasonography of Heart with Aorta, Transesophageal (ICD-10-PCS; CPT 93312; principal; 2024-10-04 12:00)
PROC: 5A2204Z Restoration of Cardiac Rhythm, Single (ICD-10-PCS; 2024-10-04 12:00)
DX: I48.91 Unspecified atrial fibrillation (principal); Z68.44 Body mass index [BMI] 60.0-69.9, adult; G47.33 Obstructive sleep apnea (adult) (pediatric); R53.81 Other malaise; I11.0 Hypertensive heart disease with heart failure; I50.9 Heart failure, unspecified; E66.01 Morbid (severe) obesity due to excess calories; T39.016A Underdosing of aspirin, initial encounter
CPT/HCPCS: 36415; 71045; 80048; 80053; 81001; 83735; 83880; 84100; 84443; 84484; 85025; 85378; 92960; 93005; 93312; 93320; 93325; 94760; 96365; 96366; 96367; 96372; 96375; 96376; 99285; A4222; A9270; G0378; J0283; J1160; J1650; J1940; J2405; J2470; J2704; J3475; J3490

== ENCOUNTER → 2024-10-09 16:07 | Outpatient (BNVA) | payer MEDICARE, SELFPAY | PROVIDERS: PCP Family Medicine; Visit Provider Nurse Practitioner Family | DX: I48.91 Unspecified atrial fibrillation (principal); Z09 Encounter for follow-up examination after completed treatment for conditions other than malignant neoplasm | CPT/HCPCS: 93005; 99214 ==

== ENCOUNTER → 2024-10-31 10:11 | Outpatient (BNVA) | payer MEDICARE, SELFPAY | PROVIDERS: PCP Family Medicine; Visit Provider Podiatrist Foot & Ankle Surgery | DX: M77.42 Metatarsalgia, left foot (principal); M25.872 Other specified joint disorders, left ankle and foot | CPT/HCPCS: 99213 ==

== ENCOUNTER 2024-11-29 15:42 | Outpatient (CLI) | payer MEDICARE, SELFPAY | END 2024-11-29 15:43 | disposition home or self-care (01) | LOC: SPT 15:43 | PROVIDERS: PCP Family Medicine; Visit Provider Podiatrist Foot & Ankle Surgery | DX: Z46.89 Encounter for fitting and adjustment of other specified devices (principal); M77.40 Metatarsalgia, unspecified foot; M25.879 Other specified joint disorders, unspecified ankle and foot | CPT/HCPCS: L3030 ==

== ENCOUNTER → 2025-01-03 12:24 | Outpatient (BNVA) | payer MEDICARE, SELFPAY | PROVIDERS: PCP Family Medicine; Visit Provider Internal Medicine Cardiovascular Disease | DX: I48.91 Unspecified atrial fibrillation (principal); I10 Essential (primary) hypertension; G47.33 Obstructive sleep apnea (adult) (pediatric) | CPT/HCPCS: 99214 ==

== ENCOUNTER → 2025-01-31 10:10 | Outpatient (BNVA) | payer MEDICARE, SELFPAY | PROVIDERS: PCP Family Medicine; Visit Provider Nurse Practitioner Family | DX: L71.8 Other rosacea (principal); S00.80XA Unspecified superficial injury of other part of head, initial encounter; L85.3 Xerosis cutis; L81.4 Other melanin hyperpigmentation; X58.XXXA Exposure to other specified factors, initial encounter | CPT/HCPCS: 99214 ==

== ENCOUNTER 2025-02-04 20:00 | Outpatient (CLI) | payer MEDICARE, SELFPAY | END 2025-02-04 20:01 | disposition home or self-care (01) | LOC: SLEEP 02-05 03:37 | PROVIDERS: PCP Family Medicine; Visit Provider Family Medicine | DX: G47.33 Obstructive sleep apnea (adult) (pediatric) (principal) | CPT/HCPCS: 95811 ==

== ENCOUNTER → 2025-02-28 11:25 | Outpatient (BNVA) | payer MEDICARE, SELFPAY | PROVIDERS: PCP Family Medicine; Visit Provider Nurse Practitioner Family | DX: S00.80XA Unspecified superficial injury of other part of head, initial encounter (principal); X58.XXXA Exposure to other specified factors, initial encounter; L71.8 Other rosacea; L91.8 Other hypertrophic disorders of the skin; L72.0 Epidermal cyst | CPT/HCPCS: 99214 ==

== ENCOUNTER 2025-10-18 09:53 | Inpatient (IN) | payer MEDICARE, SELFPAY ==
[2025-10-18] VITALS (29 sets, daily range): BP systolic 81–201; BP diastolic 47–114; PULSE 76–189; RESP 17–30; TEMP 36.2–36.5; O2SAT 86–98; BMI 64.0
--- NOTE | 2025-10-18 09:55 | XRR_ITS ---
PROCEDURE INFORMATION: Exam: XR Chest Exam date and time: 10/18/2025 10:36 AM Age: 70 years old Clinical indication: Shortness of breath; Additional info: SOB TECHNIQUE: Imaging protocol: Radiologic exam of the chest. Views: 1 view. COMPARISON: CR XR chest 1V portable [id number] 10/02/2024 5:53 PM FINDINGS: Lungs: No active infiltrate or focal parenchymal abnormality. Pulmonary vascularity is normal. Pleural spaces: No pleural effusion. No pneumothorax. Heart/Mediastinum: Normal cardiomediastinal sillhouette. Bones/joints: There is a right total shoulder arthroplasty. XR/XR chest 1V portable [id number] IMPRESSION: No acute cardiopulmonary abnormality.
--- OUTSIDE RECORDS SUMMARY | 2025-10-18 09:58 | XMS_ITS | Patient Health Record ---
Author Organization [facility] Address [address] [place] [address] Care Team Providers Care Melter Supervisor Electric Arc Furnace Name Role Phone MatCassie underwooddena Primary Care Provider Reason For Referral No Information Medications Medication SIG (Take, Route, Frequency, Duration) Notes Start Date End Date Status Esomeprazole 40 MG Enteric Coated Capsule Esomeprazole 40 MG Enteric Coated Capsule 05/22/2019 Active Aspirin 325 MG Oral Tablet Aspirin 325 MG Oral Tablet 07/02/2019 Active Metoclopramide 10 MG Oral Tablet Metoclopramide 10 MG Oral Tablet 07/02/2019 Active Immunizations Vaccine Route Administration Date Status Comme nts Influenza (whole), CPT 37288 Inactive Unknown 07/02/2019 Administered Social History Social History Additional Details Category Social Info Options Details zzMigrated Social History Migrated Social History Smoking Status:Never smoked tobacco (finding) Plan Of Treatment No Information
--- NOTE | 2025-10-18 10:16 | ECG_ITS ---
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1955 Requested By: Brittany Monroe Order Number: [id number] Reading MD: HUBER GRANADOS Measurements Intervals [place] Rate: 167 P: 0 [place]: 0 QRS: -26 QRSD: 78 T: 136 QT: 263 QTc: 438 Interpretive Statements ATRIAL FIBRILLATION WITH RAPID VENTRICULAR RESPONSE BORDERLINE LEFT AXIS DEVIATION [QRS AXIS < -20] LOW QRS VOLTAGE IN PRECORDIAL LEADS [QRS DEFLECTION < 1.0 mV IN CHEST LEADS] ST DEVIATION AND MODERATE T-WAVE ABNORMALITY, CONSIDER LATERAL ISCHEMIA [-0.1+ mV T-WAVE IN I/aVL/V5/V6] CRITICAL TEST RESULT Compared to ECG 10/09/2024 16:15:06 T-wave abnormality now present Possible ischemia now present Sinus rhythm no longer present Myocardial infarct finding no longer present Electronically Signed On 10-20-2025 23:06:02 HYDRAULIC GOVERNOR ASSEMBLER by HUBER GRANADOS [email or web address]
--- NOTE | 2025-10-18 10:28 | W.ED.ARRPALP ---
HPI - Arrhythmia/Palpitations General: Chief Complaint: Arrhythmia/Palpitations Stated Complaint: increased hr, sob, fatigue Time Seen by Provider: 10/18/25 10:23 Source: patient Mode of arrival: ambulatory Limitations: no limitations History of Present Illness: 70-year-old female history of A-fib states she has been having palpitations over the last 4 to 5 days. States her heart rates been in the 140s. Patient denies any fever she denies any chest pain or shortness of breath. She denies any worsening or improving factors. Related Data Home Medications ?Medication ?Instructions ?Recorded ?Confirmed magnesium glycinate 250 mg PO BEDTIME 06/03/23 04/08/25 zinc gluconate 20 mg tablet 20 mg PO DAILY 06/03/23 04/08/25 Previous Rx's ?Medication ?Instructions ?Recorded sole supports #1 ea 10/18/24 diltiazem HCl 120 mg capsule,24 120 mg PO DAILY #90 caps 10/29/24 hr,extended release apixaban 5 mg tablet (Eliquis) 5 mg PO BID #180 tabs 11/07/24 metoprolol succinate 25 mg 25 mg PO DAILY #180 tabs 11/27/24 tablet,extended release 24 hr Auto-titrating CPAP with mask and #1 ea 02/27/25 supplies furosemide 40 mg tablet (Lasix) 40 mg PO BID PRN edema #60 tabs 04/08/25 potassium chloride 20 mEq 20 meq PO BID PRN take with Lasix 04/08/25 tablet,extended #60 tabs release(part/cryst) (Klor-Con M) Allergies Allergy/AdvReac Type Severity Reaction Status Date / Time No Known Allergies Allergy Verified 01/03/25 12:31 Review of Systems Card: Reports: palpitations and irregular heart rhythm [facility] PFSH: Medical History (Updated 10/18/25 @ 12:18 by Brittany Monroe MD) Hypertension Obesity Surgical History S/P knee replacement S/P bladder repair S/P cholecystectomy S/P hysterectomy Family History Mother , from [place] CAD (coronary artery disease) Pulmonary embolism Father , from [place] Myasthenia gravis Social History Smoking and tobacco/nicotine status: never used tobacco/nicotine Physical Exam Const: COMMON NORMALS: no acute distress, patient oriented x3 and healthy appearing HENMT: COMMON NORMALS: normocephalic and atraumatic HEAD & SCALP: normocephalic and atraumatic Neck/C-Spine: COMMON NORMALS: full ROM and supple Chest: COMMONS NORMALS: normal inspection of the chest Resp: COMMON NORMALS: normal respiratory effort, No retractions, No use of accessory muscles and clear to auscultation bilaterally AUSCULTATION: clear to auscultation bilaterally Cardio: COMMON NORMALS: No murmurs present (Cardio) RATE: tachycardic RHYTHM: abnormal rhythm irregularly irregular Extremity: COMMON NORMALS: normal to inspection and full ROM Neuro: COMMON NORMALS: patient oriented x3, moves all extremities and no focal motor deficits Psych: COMMON NORMALS: mental status grossly normal, Normal thought process present and cooperative THOUGHT PROCESS: Normal thought process present Skin: COMMON NORMALS: no rashes or lesions noted and no wounds GENERAL SKIN EXAM: no rashes or lesions noted Course Vital Signs: Vital signs: Vital Signs Temperature 97.7 F 10/18/25 10:06 Pulse Rate 161 H 10/18/25 11:11 Respiratory Rate 19 H 10/18/25 10:06 Blood Pressure 145/95 10/18/25 11:11 Pulse Oximetry 88 L 10/18/25 11:11 Oxygen Delivery Me thod Room Air 10/18/25 11:11 MDM - Arrhythmia/Palpitations Medical Decision Making Patient presents with A-fib with RVR patient's heart rate originally in the 160s did give her Cardizem bolus with minimal change in her heart rate did start her on IV Cardizem drip patient's had no chest pain or dyspnea no signs of ACS or pulm emboli. Blood work showed no significant abnormality did speak to the hospitalist will admit at this time. EKG interpreted by me at 1016 A-fib with RVR heart rate [address] elevation QRS 78 QTc 354 Medical Records I reviewed the patient's medical records. Lab Data I reviewed the patient's lab results. 10/18/25 10:23 10/18/25 10:23 Radiology Impressions Chest X-Ray 10/18/25 09:55 IMPRESSION: No acute cardiopulmonary abnormality. Laboratory Results WBC 11.11 10^3/uL (3.29-11.43) 10/18/25 10:23 RBC 4.90 10^6/uL (3.85-5.65) 10/18/25 10:23 Hgb 13.90 g/dL (11.27-16.99) 10/18/25 10:23 Hct 43.0 % (36-47) 10/18/25 10:23 MCV 87.8 fl (85-98) 10/18/25 10:23 MCH 28.4 pg (27-33) 10/18/25 10:23 MCHC 32.3 g/dL (30-55) 10/18/25 10:23 RDW 15.9 % (12.1-15.1) H 10/18/25 10:23 Plt Count 223 10^3/cmm (157-399) 10/18/25 10:23 MPV 11.6 fL (7.4-10.4) H 10/18/25 10:23 Neut % (Auto) 69.2 % 10/18/25 10:23 Lymph % (Auto) 21.5 % 10/18/25 10:23 [place] % (Auto) 6.3 % 10/18/25 10:23 Eos % (Auto) 1.7 % 10/18/25 10:23 Baso % (Auto) 0.8 % 10/18/25 10:23 Neut # (Auto) 7.68 10^3/uL (1.8-7.7) 10/18/25 10:23 Lymph # (Auto) 2.4 10^3/uL (0.8-4.8) 10/18/25 10:23 [place] # (Auto) 0.7 10^3/uL (0.2-0.9) 10/18/25 10:23 Eos # (Auto) 0.2 10^3/uL (0.0-0.8) 10/18/25 10:23 Baso # (Auto) 0.1 10^3/uL (0.0-0.1) 10/18/25 10:23 Nucleated RBC % (auto) 0 % 10/18/25 10:23 Nucleated RBCs # 0.0 /100WBC 10/18/25 10:23 PT 16.10 SECONDS (12.1-14.9) H 10/18/25 10:23 INR 1.21 (0.8-1.2) H 10/18/25 10:23 Sodium 138 mmol/L (136-145) 10/18/25 10:23 Potassium 4.3 mmol/L (3.5-5.1) 10/18/25 10:23 Chloride 102 mmol/L (98-107) 10/18/25 10:23 Carbon Dioxide 21 mmol/L (22-29) L 10/18/25 10:23 Anion Gap 19.3 (5-19) H 10/18/25 10:23 BUN 19 mg/dL (8-23) 10/18/25 10:23 Creatinine 0.7 mg/dL (0.5-0.9) 10/18/25 10:23 GFR Calculation Not Reportable 10/18/25 10:23 Glucose 123 mg/dL (65-115) H 10/18/25 10:23 Calculated Osmolality 290 mOsm/kg (285-295) 10/18/25 10:23 Calcium 9.4 mg/dL (8.5-10.5) 10/18/25 10:23 Total Bilirubin 0.8 mg/dL (0.15-1.2) 10/18/25 10:23 AST 31 U/L (0-32) 10/18/25 10:23 ALT 35 U/L (0-33) H 10/18/25 10:23 Alkaline Phosphatase 91 U/L (35-105) 10/18/25 10:23 Troponin T Baseline 14 ng/L (0-10) H 10/18/25 10:23 Troponin T 60 Minute 13.79 ng/L (0-10) H 10/18/25 11:15 Delta Troponin T -0.21 ABS# (0-10) L 10/18/25 11:15 NT-Pro-B Natriuret Pep 2190 pg/mL (0-125) H 10/18/25 10:23 Total Protein 6.4 g/dL (6.6-8.7) L 10/18/25 10:23 Albumin 4.0 g/dL (3.5-5.2) 10/18/25 10:23 Globulin 2.4 g/dL (1.3-4.6) 10/18/25 10:23 Urine Color Yellow (Yellow) 10/18/25 11:36 Urine Appearance Clear (CLEAR) 10/18/25 11:36 Urine pH 5.5 (5-7) 10/18/25 11:36 Ur Specific [place] 1.024 (1.005-1.030) 10/18/25 11:36 Urine Protein 1+ (Negative) A 10/18/25 11:36 Urine Glucose (UA) Negative (Normal) 10/18/25 11:36 Urine Ketones Negative (Negative) 10/18/25 11:36 Urine Blood Negative (Negative) 10/18/25 11:36 Urine Nitrate Negative (Negative) 10/18/25 11:36 Urine Bilirubin Negative (Negative) 10/18/25 11:36 Urine Urobilinogen 1.0 mg/dL (Negative) 10/18/25 11:36 Ur Leukocyte Esterase Negative (Negative) 10/18/25 11:36 Urine RBC 0-2 /hpf (0-2) 10/18/25 11:36 Urine WBC 0-5 /hpf (0-5) 10/18/25 11:36 Ur Squamous Epith Cells 6-10 /hpf (0-5) 10/18/25 11:36 Amorphous Sediment Not Reportable 10/18/25 11:36 Urine Bacteria Trace /hpf (NONE) 10/18/25 11:36 Hyaline Casts 3.71 /lpf 10/18/25 11:36 All radiology interpretation(s) finalized by discharge Discharge Plan Discharge Patient Disposition: Admitted As Inpatient Clinical Impression: Atrial fibrillation with rapid ventricular response Condition: Stable Coding Level of Care Code ED Aboriginal Education Teacher for Daniele Gannon
[2025-10-18 10:33] LABS: Hematocrit 43.0 % (36-47); Hemoglobin 13.90 g/dL (11.27-16.99); Mean Corpuscular HGB Conc 32.3 g/dL (30-55); Mean Corpuscular Hemoglobin 28.4 pg (27-33); Mean Corpuscular Volume 87.8 fl (85-98); Nucleated Red Blood Cells % 0 %; Platelet Count 223 10^3/cmm (157-399); Red Blood Count 4.90 10^6/uL (3.85-5.65); White Blood Count 11.11 10^3/uL (3.29-11.43)
[2025-10-18 10:51] LABS: INR 1.21 (0.8-1.2); Prothrombin Time 16.10 SECONDS (12.1-14.9)
[2025-10-18 10:56] LABS: Troponin(5th) Baseline 14 ng/L (0-10)
--- NOTE | 2025-10-18 10:56 | ECG_ITS ---
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: : 1955 Requested By: Brittany Monroe Order Number: [id number] Reading MD: HUBER GRANADOS Measurements Intervals [place] Rate: 155 P: 0 [place]: 0 QRS: -33 QRSD: 80 T: 137 QT: 268 QTc: 430 Interpretive Statements ATRIAL FIBRILLATION WITH RAPID VENTRICULAR RESPONSE LEFT AXIS DEVIATION [QRS AXIS < -30] LOW QRS VOLTAGE IN PRECORDIAL LEADS [QRS DEFLECTION < 1.0 mV IN CHEST LEADS] SEPTAL MYOCARDIAL INFARCTION , PROBABLY OLD [40+ ms Q WAVE IN V1/V2] MODERATE T-WAVE ABNORMALITY, CONSIDER LATERAL ISCHEMIA [-0.1+ mV T-WAVE IN I/aVL/V5/V6] CRITICAL TEST RESULT Compared to ECG 10/18/2025 10:16:54 Myocardial infarct finding now present T-wave abnormality still present Possible ischemia still present Electronically Signed On 10-20-2025 23:23:22 PAINT PROCESS ENGINEER by HUBER GRANADOS [email or web address]
[2025-10-18] MEDS: dilTIAZem 5 mg/mL SDV 5 mL 15 MG IVP (11:07)
--- NOTE | 2025-10-18 11:14 | PC.NURSE ---
patient refuses to get into ED bed. patient reports she will not sit in the bed and will sit in the chair only. educated on safety concerns d/t heart rate and verbalized understanding and refused again.
[2025-10-18 11:17] LABS: Alanine Aminotransferase 35 U/L (0-33); Albumin Level 4.0 g/dL (3.5-5.2); Alkaline Phosphatase 91 U/L (35-105); Anion Gap 19.3 (5-19); Aspartate Amino Transferase 31 U/L (0-32); Blood Urea Nitrogen 19 mg/dL (8-23); Calcium 9.4 mg/dL (8.5-10.5); Carbon Dioxide 21 mmol/L (22-29); Chloride 102 mmol/L (98-107); Globulin 2.4 g/dL (1.3-4.6); Glucose 123 mg/dL (65-115); NT Pro B Type Natriuretic Pept 2190 pg/mL (0-125); Osmolality Calculated 290 mOsm/kg (285-295); Potassium 4.3 mmol/L (3.5-5.1); Sodium 138 mmol/L (136-145); Total Protein 6.4 g/dL (6.6-8.7)
[2025-10-18] MEDS: DILTIAZEM HCL/D5W 125 MG/125 ML BAG IV (11:38)
--- NOTE | 2025-10-18 11:38 | PC.NURSE ---
per provider order, increase dilt to 10mg
[2025-10-18 11:44] LABS: Glucose Urine UA Negative (Normal); Nitrate Urine Negative (Negative); Specific Gravity, Urine 1.024 (1.005-1.030)
[2025-10-18 11:49] LABS: Add Urine Microscopic? YES
--- NOTE | 2025-10-18 13:10 | PC.NURSE ---
notified provider that patients heart rate is still in the 160s and 170s and that she is maxed out on dilt. provider verbalized to keep her at same rate for now.
--- NOTE | 2025-10-18 15:56 | ECG_ITS ---
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: : 1955 Requested By: Brittany Monroe Order Number: [id number] Reading MD: HUBER GRANADOS Measurements Intervals [place] Rate: 165 P: 0 [place]: 0 QRS: -38 QRSD: 83 T: 128 QT: 277 QTc: 459 Interpretive Statements ATRIAL FIBRILLATION WITH RAPID VENTRICULAR RESPONSE LEFT AXIS DEVIATION [QRS AXIS < -30] LOW QRS VOLTAGE IN PRECORDIAL LEADS [QRS DEFLECTION < 1.0 mV IN CHEST LEADS] POSSIBLE ANTERIOR MYOCARDIAL INFARCTION , OF INDETERMINATE AGE [30 ms Q WAVE IN V3/V4, OR R < 0.2 mV IN V4] MODERATE T-WAVE ABNORMALITY, CONSIDER LATERAL ISCHEMIA [-0.1+ mV T-WAVE IN I/aVL/V5/V6] CRITICAL TEST RESULT Compared to ECG 10/18/2025 11:16:27 No significant changes Electronically Signed On 10-20-2025 23:22:09 TOOL PROGRAMMER by HUBER GRANADOS [email or web address]
[2025-10-18 17:14] LABS: Magnesium 2.0 mg/dL (1.7-2.3)
[2025-10-18 17:53] LABS: Troponin 5 6HR 13.33 ng/L (0-10)
[2025-10-18] MEDS: metoprolol succinate ER (24 HR) 25 mg Tablet PO (17:57)
[2025-10-18] MEDS: dilTIAZem ER (24HR) 120 mg Capsule PO (17:57)
[2025-10-18 18:02] LABS: Troponin 5 6HR Delta -0.67 ng/L (0-12)
[2025-10-18] MEDS: metoprolol tartrate 1 mg/1 mL SDV 5 mL 5 MG IVP (18:05)
[2025-10-18] MEDS: FUROsemide 10 mg/mL SDV 4mL 40 MG IVP ×2 (18:23→21:03)
--- NOTE | 2025-10-18 18:51 | P.HP_ITS ---
Providers/Chief Complaint 2 Admitting Physician: Claudette Dukes MD Primary Care Provider: Matt Mercado MD Chief Complaint: increased hr, sob, fatigue History of Present Illness As per the previous retrospective notes and the patient: Daniela Hernandez is a 70 year old female with past medical history of atrial fibrillation on metoprolol and Cardizem, presented with palpitations from the last 3 to 4 days and presented to ER with a heart rate reaching above 140s to 150s. Admitted as a case of atrial fibrillation with RVR. Patient did not report any shortness of breath, chest pain, chest pressure, abdominal pain, diarrhea, vomiting or any fever or chills. No orthopnea or PND. Rest of review of system unremarkable Patient is non-smoker, nonalcoholic and no other drug abuse Review of Systems 2 General: Reports: 10 or more systems reviewed and unremarkable except in HPI and below Medications/Allergies Home Medications ?Medication ?Instructions ?Recorded ?Confirmed ?Last Taken ?Type magnesium glycinate 250 mg PO BEDTIME 06/03/23 1 12/19/24 10/17/25 19:00 History sole supports #1 ea 10/18/24 10/18/25 Unkn own Rx diltiazem HCl 120 mg capsule,24 120 mg PO DAILY #90 ca ps 10/29/24 10/18/25 10/17/25 Rx hr,extended release apixaban 5 mg tablet (Eliquis) 5 mg PO BID #180 tabs 0 11/07/24 10/18/25 10/18/25 08:00 Rx metoprolol succinate 25 mg 25 mg PO DAILY #180 tabs 10/18/25 10/17/25 Rx tablet,extended release 24 hr Auto-titrating CPAP with mask and #1 ea 02/27/2510/18 Unknown Rx supplies furosemide 40 mg tablet (Lasix) 40 mg PO BID PRN edema #60 tabs 04/08/25 10/18/25 Unknown Rx potassium chloride 20 mEq 20 meq PO BID PRN take with Lasix 04/08/25 10/18/25 Unknown Rx tablet,extended #60 tabs release(part/cryst) (Klor-Con M) zinc acetate 25 mg (zinc) capsule 25 mg PO DAILY 10/1810/18/25 10/17/25 History Allergies Allergy/AdvReac Type Severity Reaction Status Date / Time No Known Allergies Allergy Verified 01/03/25 12:31 PFSH Acute 2 PFSH: Medical History (Updated 10/18/25 @ 12:18 by Brittany Monroe MD) Hypertension Obesity Surgical History S/P knee replacement S/P bladder repair S/P cholecystectomy S/P hysterectomy Family History Mother , from PE CAD (coronary artery disease) Pulmonary embolism Father , from [place] Myasthenia gravis Social History Smoking and tobacco/nicotine status: never used tobacco/nicotine Vitals/I&O/Wt Last Vital Signs Temp 97.7 F 10/18/25 10:06 Pulse 173 H 10/18/25 15:58 Resp 19 H 10/18/25 10:06 BP 147/78 10/18/25 15:58 Pulse Ox 95 10/18/25 15:58 O2 Del Method Nasal Cannula 10/18/25 15:58 O2 Flow Rate 2 10/18/25 15:58 10/18/25 10/18/25 10/18/25 06:59 14:59 22:59 Intake Total 7.041 / 7.041 Balance 7.041 / 7.041 Weight last 48 hrs Weight 158.757 kg Physical Exam 2 Narrative: General: Morbidly obese lady, alert and oriented, lying comfortably without any distress HEENT: Normocephalic, atraumatic, grossly unremarkable exam Cardio: Limited secondary to morbid obesity, irregular rhythm with tachycardia, normal S1-S2, however cannot appreciate murmurs or rubs due to morbid obesity, JVD can be observed due to short thick neck Respiratory: Normal air entry, did not wish any wheezes or stridor however limited exam due to morbid obesity GI: Abdomen soft, nontender, nondistended, normoactive bowel sounds present all 4 quadrants, Neuro: intact cranial nerves motor and sensory and cerebellar/coordination function without any focal neurological deficit Behavior: Appropriate and cooperative Extremities: Adequate palpable pulses, mild trace edema Data 10/18/25 10:23 10/18/25 10:23 A&P Assessment and plan 1. Atrial fibrillation with rapid ventricular response: Patient s/p Cardizem drip and did not improve from the last 6 to 7 hours, Received IV metoprolol stat since the blood pressure and heart rate is also uncontrolled. Switch to amiodarone drip Resume home medication with metoprolol and Cardizem Troponins negative, proBNP raised Lasix 40 mg IV daily Echo TSH Telemetry monitoring Monitor electrolytes and correction accordingly Intake and output monitoring Keep MAP above 65 If the patient heart rate or blood pressure is not controlled consider cardiology input 2. Hypertension: Patient with uncontrolled blood pressure, Resume home medication, continue amiodarone IV infusion Patient on metoprolol and diltiazem Added losartan 25 mg Continue to monitor and titrate medications accordingly 3. IRAJ (obstructive sleep apnea): Patient known to have sleep apnea, on CPAP Continue as inpatient for further management PDMP PDMP Reviewed: Not Reviewed Attestations 2 Medical Necessity Statement*: Patient will stay more than 2 midnights for the management of hypertensive urgency, atrial fibrillation with RVR requiring ICU monitoring and IV medications Time Spent in Patient Care: Greater than 35 minutes (>than 50% of time spent in counselling and/or direct pt care on unit) . Critical Care Time: The high probability of a clinically significant, sudden or life threatening deterioration, as referenced in this documentation, required my full and direct attention, intervention and personal management. The critical care time shown is in addition to time spent performing any reported separately billable procedures and includes the following: [x] Data and vital sign review and interpretation [x ] Patient assessment, examination and intervention [x] Medication orders and management [x] Patient/Family updates as able [x] Care Coordination and Documentation. Critical Care Time (min): 36 Other Attestations: Patient condition has been discussed at length with the patient/family, I have independently reviewed the chart labs imaging/diagnostics/EKG. the goals of care and code status with the patient/family/NOK/legal community health representative, and documented accordingly. I have reconciled the medications after confirmation/comorbidities/current clinical condition. The management has been done according to the current clinical condition with respect to patient goals of care and based on recommendations/guidelines. The patient/family has been informed about the current condition and further plan of care. Agreed with the plan of care and understood without any language barrier. Every effort was made to ensure accuracy of scratch finisher. Any obvious errors or omissions should be clarified with the author of the document. Coding Level of Care Code Critical Care >/= 30 minutes Diagnoses Atrial fibrillation with rapid ventricular response I48.91 Hypertension I10 IRAJ (obstructive sleep apnea) G47.33
[2025-10-18] MEDS: DILTIAZEM HCL/D5W 125 MG/125 ML BAG 15 MG IV (19:28)
[2025-10-18] MEDS: amiodarone 150 MG/100 ML PREMIX 400 MG IV (20:04)
[2025-10-18] MEDS: AMIODARONE HCL/D5W 900 MG/500 ML BAG 33.33 MG IV (20:05)
[2025-10-18] MEDS: oxyCODONE-APAP 5-325 mg Tablet 1 TAB PO (21:02)
[2025-10-19] VITALS (47 sets, daily range): BP systolic 83–157; BP diastolic 44–117; PULSE 50–166; RESP 14–32; TEMP 36.5–36.8; O2SAT 79–99
[2025-10-19] MEDS: oxyCODONE-APAP 5-325 mg Tablet 1 TAB PO ×2 (02:00→05:30)
--- NOTE | 2025-10-19 03:31 | PC.NURSE ---
Pt became dizzy and HR was afib 180's. Dr. Conn contacted by CRISTA Rodriguez. placed orders (see MAR). One of the orders was a cardizem IVP. This nurse contacted Dr. Conn to verify he wanted medicine given since pt had already gotten an IVP of cardizem in the ER as well as having been on a gtt for several hours with no change in condition. stated the amount given in ER was possibly not enough, so this nurse is to give IVP (see MAR).
[2025-10-19] MEDS: dilTIAZem 5 mg/mL SDV 5 mL 35 MG IVP (03:40)
[2025-10-19] MEDS: LORazepam 2 mg/mL INJ 1 mL IVP (04:13)
[2025-10-19] MEDS: LOSARTAN 25 MG TABLET PO (04:19)
[2025-10-19] MEDS: dilTIAZem ER (24HR) 120 mg Capsule PO (04:19)
[2025-10-19] MEDS: metoprolol succinate ER (24 HR) 25 mg Tablet PO (04:19)
[2025-10-19] MEDS: metoprolol tartrate 1 mg/1 mL SDV 5 mL 5 MG IVP (04:19)
[2025-10-19] MEDS: pantoprazole 40 mg SDV IVP (05:12)
[2025-10-19] MEDS: digoxin 250 mcg/ml INJ 2 mL 500 MCG IVP (05:32)
[2025-10-19 06:45] LABS: Alanine Aminotransferase 37 U/L (0-33); Albumin Level 3.7 g/dL (3.5-5.2); Alkaline Phosphatase 95 U/L (35-105); Blood Urea Nitrogen 15 mg/dL (8-23); Calcium 9.5 mg/dL (8.5-10.5); Carbon Dioxide 21 mmol/L (22-29); Chloride 100 mmol/L (98-107); Globulin 3.2 g/dL (1.3-4.6); Glucose 132 mg/dL (65-115); Osmolality Calculated 283 mOsm/kg (285-295); Sodium 135 mmol/L (136-145); Total Protein 6.9 g/dL (6.6-8.7)
[2025-10-19 06:46] LABS: Anion Gap 18.1 (5-19); Aspartate Amino Transferase 46 U/L (0-32); Potassium 4.1 mmol/L (3.5-5.1)
[2025-10-19 06:52] LABS: Hematocrit 45.9 % (36-47); Hemoglobin 14.10 g/dL (11.27-16.99); Mean Corpuscular HGB Conc 30.7 g/dL (30-55); Mean Corpuscular Hemoglobin 28.4 pg (27-33); Mean Corpuscular Volume 92.4 fl (85-98); Nucleated Red Blood Cells % 0 %; Platelet Count 167 10^3/cmm (157-399); Red Blood Count 4.97 10^6/uL (3.85-5.65); White Blood Count 12.37 10^3/uL (3.29-11.43)
--- NOTE | 2025-10-19 08:42 | P.PN_ITS ---
Subjective 2 Subjective: patient was seen in the morning, was having leg cramps. However her heart rate was still uncontrolled on Amio drip Cardiology consulted and patient underwent cardioversion without any complications S/p cardioversion patient heart rate better and patient stable Vitals/I&O/Wt Last Vital Signs Temp 98.1 F 10/20/25 07:57 Pulse 65 10/20/25 07:57 Resp 18 10/20/25 07:57 BP 139/68 10/20/25 07:57 Pulse Ox 97 10/20/25 07:57 O2 Del Method CPAP 10/20/25 04:00 O2 Flow Rate 3 10/20/25 04:00 10/19/25 10/20/25 10/20/25 22:59 06:59 14:59 Intake Total 400 / 878.286 Output Total 1000 / 1000 400 / 1400 Balance -600 / -121.714 -400 / -521.714 Weight last 48 hrs Weight 169.8 kg Weight 158.757 kg Physical Exam 2 Narrative: General: Morbidly obese lady, alert and oriented, lying comfortably without any distress HEENT: Normocephalic, atraumatic, grossly unremarkable exam Cardio: Limited secondary to morbid obesity, normal rate sinus rhythm, normal S1-S2, however cannot appreciate murmurs or rubs due to morbid obesity, JVD can be observed due to short thick neck Respiratory: Normal air entry, did not wish any wheezes or stridor however limited exam due to morbid obesity GI: Abdomen soft, nontender, nondistended, normoactive bowel sounds present all 4 quadrants, Neuro: intact cranial nerves motor and sensory and cerebellar/coordination function without any focal neurological deficit Behavior: Appropriate and cooperative Extremities: Adequate palpable pulses, mild trace edema Urinary Catheter Management: Alfonso: Cath Placed During This Visit: yes Reason for Continuing Indwelling Catheter: Accurate Measurement of Urinary Output in Critically Ill Patients Urinary Catheter Date of Insertion: 10/18/25 Urinary Catheter Time of Insertion: 20:44 Data 10/20/25 04:52 10/20/25 04:52 A&P Assessment and plan 1. Atrial fibrillation with rapid ventricular response: Patient s/p Cardizem drip, IV metoprolol and Amio drip Cardiology consulted s/p cardioversion since the patient did not respond to the medical management Held detailed and metoprolol continued on amiodarone Cardiology on board and follow the recommendation. d Lasix 40 mg IV daily Patient heart function was reviewed during cardioversion through NEW and stable TSH normal in the last year and patient does not exhibit any symptoms, can follow-up with the PCP Telemetry monitoring Monitor electrolytes and correction accordingly Intake and output monitoring Keep MAP above 65 If the patient heart rate or blood pressure is not controlled consider cardiology input 2. Hypertension: Patient with uncontrolled blood pressure, Resume home medication, continue amiodarone IV infusion for 24 hours s/p Hold metoprolol and diltiazem Continue losartan 25 mg daily Continue to monitor and titrate medications accordingly 3. IRAJ (obstructive sleep apnea): Patient known to have sleep apnea, on CPAP Continue as inpatient for further management 4. Muscle cramp: Adequate analgesia as per pain scale 5. Restless leg syndrome: Patient has rest like leg syndrome like symptoms which starts in the evening with cramps in her legs Gabapentin 100 mg twice daily and to see the response PDMP PDMP Reviewed: Not Reviewed Attestations 2 Medical Necessity Statement*: Patient will stay over midnight for monitoring s/p cardioversion for uncontrolled atrial fibrillation with RVR Time Spent in Patient Care: 16 - 35 minutes (>than 50% of time sp ent in counselling and/or direct pt care on unit) . Other Attestations: Patient condition has been discussed at length with the patient/family, I have independently reviewed the chart labs imaging/diagnostics/EKG. the goals of care and code status with the patient/family/NOK/legal employment program representative, and documented accordingly. I have reconciled the medications after confirmation/comorbidities/current clinical condition. The management has been done according to the current clinical condition with respect to patient goals of care and based on recommendations/guidelines. The patient/family has been informed about the current condition and further plan of care. Agreed with the plan of care and understood without any language barrier. Every effort was made to ensure accuracy of field sales engineer. Any obvious errors or omissions should be clarified with the author of the document. Coding Level of Care Code 27543 Diagnoses Atrial fibrillation with rapid ventricular response I48.91 Hypertension I10 IRAJ (obstructive sleep apnea) G47.33 Muscle cramp R25.2 Restless leg syndrome G25.81
--- NOTE | 2025-10-19 09:43 | PM.CONSULT ---
Providers/Reason For Consult Consulting Physician/Specialty*: Jerome Dye MD/ Cardiology Reason for Consult*: Atrial fibrillation with RVR Requesting Physician: Jerome Dye MD/ Cardiology Attending Physician: Claudette Dukes MD Primary Care Provider: Matt Mercado MD History of Present Illness History of Present Illness Daniela Hernandez is a 70 year old female with past medical history of atrial fibrillation, hypertension and obstructive sleep apnea has presented to hospital with 3 to 4 days of palpitations. Heart rate is sustaining in 130 to 150 bpm range. Denies chest pain. Review of Systems General: Reports: 10 or more systems reviewed and unremarkable except in HPI and below Card: Reports: palpitations Medications/Allergies Home Medications ?Medication ?Instructions ?Recorded ?Confirmed ?Last Taken ?Type magnesium glycinate 250 mg PO BEDTIME 06/03/23 10/18/25 10/17/25 19:00 History sole supports #1 ea 10/18/24 10/18/25 Unknown Rx diltiazem HCl 120 mg capsule,24 120 mg PO DAILY #90 caps 10/29/24 10/18/25 10/17/25 Rx hr,extended release apixaban 5 mg tablet (Eliquis) 5 mg PO BID #180 tabs 11/07/24 10/18/25 10/18/25 08:00 Rx metoprolol succinate 25 mg 25 mg PO DAILY #180 tabs 11/27/24 10/18/25 10/17/25 Rx tablet,extended release 24 hr Auto-titrating CPAP with mask and #1 ea 02/27/25 10/18/25 Unknown Rx supplies furosemide 40 mg tablet (Lasix) 40 mg PO BID PRN edema #60 tabs 04/08/25 10/18/25 Unknown Rx potassium chloride 20 mEq 20 meq PO BID PRN take with Lasix 04/08/25 10/18/25 Unknown Rx tablet,extended #60 tabs release(part/cryst) (Klor-Con M) zinc acetate 25 mg (zinc) capsule 25 mg PO DAILY 10/18/25 10/18/25 10/17/25 History Allergies Allergy/AdvReac Type Severity Reaction Status Date / Time No Known Allergies Allergy Verified 01/03/25 12:31 Current Medications Generic Name Dose Route Start Last Admin Trade Name Freq PRN Reason Stop Dose Admin Apixaban 5 mg 10/18/25 17:12 10/19/25 04:19 Apixaban 5 Mg Tablet PO 5 mg BID SARAI Administration Cyclobenzaprine HCl 5 mg 10/18/25 20:47 10/19/25 07:27 Cyclobenzaprine 10 Mg Tablet PO 5 mg TID PRN Administration MUSCLE SPASMS Diltiazem HCl 120 mg 10/18/25 17:12 10/19/25 04:19 Diltiazem Er (24hr) 120 Mg Capsule PO 120 mg DAILY SARAI Administration Furosemide 40 mg 10/18/25 20:45 10/18/25 21:03 Furosemide 10 Mg/Ml Sdv 4ml IVP 40 mg Q24H SARAI Administration DILTIAZEM HCL/D5W 125 mg in 125 mls @ 0 mls/hr 10/18/25 11:30 10/19/25 04:27 Cardizem IV Infused .Q0M SARAI Titration Protocol Per Protocol AMIODARONE HCL/D5W 900 mg in 500 mls @ 0 mls/hr 10/18/25 20:00 10/18/25 20:05 Amiodarone 900 Mg/500 Ml-D5w IV 1 mg/min .Q0M SARAI 33.33 mls/hr Protocol Administration Per Protocol Losartan Potassium 25 mg 10/19/25 05:00 10/19/25 04:19 Losartan 25 Mg Tablet PO 25 mg DAILY SARAI Administration Metoprolol Succinate 25 mg 10/18/25 17:12 10/19/25 04:19 Metoprolol Succinate Er (24 Hr) 25 Mg Tablet PO 25 mg DAILY SARAI Administration Metoprolol Tartrate 5 mg 10/19/25 04:11 10/19/25 04:19 Metoprolol Tartrate 1 Mg/1 Ml Sdv 5 Ml IVP 5 mg Q5M PRN Administration Tachycardia Oxycodone/Acetaminophen 1 tab 10/18/25 20:47 10/19/25 05:30 Oxycodone-Apap 5-325 Mg Tablet PO 1 tab Q4H PRN Administration MODERATE PAIN Pantoprazole Sodium 40 mg 10/19/25 05:00 10/19/25 05:12 Pantoprazole 40 Mg Sdv IVP 40 mg DAILY SARAI Administration Senna 17.2 mg 10/18/25 21:00 10/18/25 22:17 Sennosides 8.6 Mg Tablet PO Not Given BEDTIME SARAI Tramadol HCl 25 mg 10/18/25 20:47 10/19/25 04:11 Tramadol 50 Mg Tablet PO 25 mg Q4H PRN Administration MODERATE PAIN PFSH Acute PFSH: Medical History Hypertension Obesity Surgical History S/P knee replacement S/P bladder repair S/P cholecystectomy S/P hysterectomy Family History Mother , from [place] CAD (coronary artery disease) Pulmonary embolism Father , from [place] Myasthenia gravis Social History Smoking and tobacco/nicotine status: never used tobacco/nicotine Vitals/I&O/Wt Last Vital Signs Temp 97.2 F L 10/18/25 18:00 Pulse 138 H 10/19/25 08:34 Resp 26 H 10/19/25 08:00 BP 127/45 10/19/25 08:00 Pulse Ox 94 10/19/25 08:34 O2 Del Method CPAP 10/19/25 08:34 O2 Flow Rate 2 10/18/25 15:58 10/18/25 10/19/25 10/19/25 22:59 06:59 14:59 Intake Total 215.75 / 222.791 0 / 222.791 Output Total 1025 / 1025 Balance 215.75 / 222.791 -1025 / -802.209 Weight last 48 hrs Weight 350 lb Physical Exam Narrative: GENERAL: Patient is alert, awake and oriented x3. [] NECK: No jugular vein distension. [] HEENT: No cyanosis. No icterus. No pallor. [] HEART: Irregularly irregular, tachycardia LUNGS: Clear to auscultate bilaterally. [] CENTRAL NERVOUS SYSTEM: Grossly nonfocal. [] EXTREMITIES: Lower extremities with 1+ edema bilaterally. Urinary Catheter Management: Alfonso: Cath Placed During This Visit: yes Reason for Continuing Indwelling Catheter: Accurate Measurement of Urinary Output in Critically Ill Patients Urinary Catheter Date of Insertion: 10/18/25 Urinary Catheter Time of Insertion: 20:44 Data 10/19/25 06:13 10/19/25 06:13 A&P Assessment and plan 1. Atrial fibrillation with rapid ventricular response: 2. Hypertension: 3. Obesity: 4. IRAJ (obstructive sleep apnea): Plan: Patient presented with atrial fibrillation with RVR. She is on Eliquis. On amiodarone gtt. Heart rates on 140s. Will proceed with NEW cardioversion. Risks and benefits discussed with patient Continue anticoagulation. Once patient, converts to sinus rhythm, can obtain echocardiogram Thank you for involving us with care of this patient. Please call with questions PDMP PDMP Reviewed: Not Reviewed Consult Attestations Medical Necessity Statement: Care expected to cross 2 midnights. Coding Level of Care Code Acute Code for [facility] Diagnoses Atrial fibrillation with rapid ventricular response I48.91 Hypertension I10 Obesity E66.9 IRAJ (obstructive sleep apnea) G47.33
[2025-10-19] MEDS: AMIODARONE HCL/D5W 900 MG/500 ML BAG 16.67 MG IV (10:26)
--- NOTE | 2025-10-19 11:13 | PC.NURSE ---
pt with frequent c/o leg cramps . muscle relaxer given and dr notified, pt and daughter upset requesting her piercing artist was to be notifed by er who is Dr Alfonso , insistant that he be notified now as it is their right explained that he was not in town but covering cardiology here was going to see them, garage supervisor called to talk with them as not understanding and wanting Dr Alfonso
--- NOTE | 2025-10-19 11:30 | W.PM.OPSUD ---
Surgery/Procedure H&P Update DATE OF PROCEDURE: October 19, 2025 DATE H&P PERFORMED: 10/19/25 H&P UPDATE INFORMATION: I have reviewed H&P completed within last 30 days, I have examined patient prior to procedure and No changes to prior documentation PREOP DIAGNOSIS: Atrial fibrillation with RVR PRIMARY INDICATION FOR PROCEDURE: Atrial fibrillation with RVR PLANNED PROCEDURE: Transesophageal echocardiogram with cardioversion Anesthesia team available for sedation
--- NOTE | 2025-10-19 12:00 | PC.NURSE ---
time out done and cardioverted 200 zahida after [place]rington done converted to sr . remains to have severe leg cramps even during procedure doctor aware
--- NOTE | 2025-10-19 12:32 | PM.PROC ---
Procedure Note: Date of procedure: 10/19/25 Pre-procedure diagnosis: Atrial fibrillation with RVR Post-procedure diagnosis: other (Sinus rhythm) Procedure: NEW/ Cardioversion: After anesthesia team sedated patient, we proceeded with advancing NEW probe. Left atrial appendage thrombus was ruled out. We then proceeded with cardioversion and patient was successfully converted back to normal sinus rhythm with 200J, synchronized shock x 1. Performing Provider: Jerome Dye Complications: None Condition: stable Disposition: no change Coding Level of Care Code Acute Code for [facility]
--- NOTE | 2025-10-19 22:18 | PC.NURSE ---
2112- Called report to Saba TOBIN in [facility]. Patient transported via w/c to 102 with belongings.
[2025-10-20 00:21] VITALS: BP 96/59; PULSE 65; RESP 21; TEMP 36.6; O2SAT 96
[2025-10-20 04:00] VITALS: BP 127/65; PULSE 73; RESP 22; TEMP 36.7; O2SAT 95
[2025-10-20 05:02] LABS: Hematocrit 38.9 % (36-47); Hemoglobin 12.00 g/dL (11.27-16.99); Mean Corpuscular HGB Conc 30.8 g/dL (30-55); Mean Corpuscular Hemoglobin 28.0 pg (27-33); Mean Corpuscular Volume 90.7 fl (85-98); Nucleated Red Blood Cells % 0 %; Platelet Count 190 10^3/cmm (157-399); Red Blood Count 4.29 10^6/uL (3.85-5.65); White Blood Count 10.46 10^3/uL (3.29-11.43)
[2025-10-20] MEDS: pantoprazole 40 mg SDV IVP (05:10)
[2025-10-20] MEDS: LOSARTAN 25 MG TABLET PO (05:10)
[2025-10-20 05:27] LABS: Alanine Aminotransferase 27 U/L (0-33); Albumin Level 3.4 g/dL (3.5-5.2); Alkaline Phosphatase 82 U/L (35-105); Anion Gap 15.8 (5-19); Aspartate Amino Transferase 22 U/L (0-32); Blood Urea Nitrogen 16 mg/dL (8-23); Calcium 8.7 mg/dL (8.5-10.5); Carbon Dioxide 22 mmol/L (22-29); Chloride 105 mmol/L (98-107); Globulin 2.1 g/dL (1.3-4.6); Glucose 103 mg/dL (65-115); Osmolality Calculated 289 mOsm/kg (285-295); Potassium 3.8 mmol/L (3.5-5.1); Sodium 139 mmol/L (136-145); Total Protein 5.5 g/dL (6.6-8.7)
[2025-10-20 07:57] VITALS: BP 139/68; PULSE 65; RESP 18; TEMP 36.7; O2SAT 97
--- NOTE | 2025-10-20 08:45 | P.PN_ITS ---
Subjective 2 Subjective: patient was seen in the morning, was having leg cramps. However her heart rate was still uncontrolled on Amio drip Cardiology consulted and patient underwent cardioversion without any complications S/p cardioversion patient heart rate better and patient stable Vitals/I&O/Wt Last Vital Signs Temp 98.1 F 10/20/25 07:57 Pulse 65 10/20/25 07:57 Resp 18 10/20/25 07:57 BP 139/68 10/20/25 07:57 Pulse Ox 97 10/20/25 07:57 O2 Del Method CPAP 10/20/25 04:00 O2 Flow Rate 3 10/20/25 04:00 10/19/25 10/20/25 10/20/25 22:59 06:59 14:59 Intake Total 400 / 878.286 Output Total 1000 / 1000 400 / 1400 Balance -600 / -121.714 -400 / -521.714 Weight last 48 hrs Weight 169.8 kg Weight 158.757 kg Physical Exam 2 Narrative: General: Morbidly obese lady, alert and oriented, lying comfortably without any distress HEENT: Normocephalic, atraumatic, grossly unremarkable exam Cardio: Limited secondary to morbid obesity, normal rate sinus rhythm, normal S1-S2, however cannot appreciate murmurs or rubs due to morbid obesity, JVD can be observed due to short thick neck Respiratory: Normal air entry, did not wish any wheezes or stridor however limited exam due to morbid obesity GI: Abdomen soft, nontender, nondistended, normoactive bowel sounds present all 4 quadrants, Neuro: intact cranial nerves motor and sensory and cerebellar/coordination function without any focal neurological deficit Behavior: Appropriate and cooperative Extremities: Adequate palpable pulses, mild trace edema Urinary Catheter Management: Alfonso: Cath Placed During This Visit: yes Reason for Continuing Indwelling Catheter: Accurate Measurement of Urinary Output in Critically Ill Patients Urinary Catheter Date of Insertion: 10/18/25 Urinary Catheter Time of Insertion: 20:44 Data 10/20/25 04:52 10/20/25 04:52 A&P Assessment and plan 1. Atrial fibrillation with rapid ventricular response: Patient s/p Cardizem drip, IV metoprolol and Amio drip Cardiology consulted s/p cardioversion since the patient did not respond to the medical management Held detailed and metoprolol continued on amiodarone Cardiology on board and follow the recommendation. d Lasix 40 mg IV daily Echo TSH Telemetry monitoring Monitor electrolytes and correction accordingly Intake and output monitoring Keep MAP above 65 If the patient heart rate or blood pressure is not controlled consider cardiology input 2. Hypertension: Patient with uncontrolled blood pressure, Resume home medication, continue amiodarone IV infusion Hold metoprolol and diltiazem Continue losartan 25 mg daily Continue to monitor and titrate medications accordingly 3. IRAJ (obstructive sleep apnea): Patient known to have sleep apnea, on CPAP Continue as inpatient for further management PDMP PDMP Reviewed: Not Reviewed Coding Level of Care Code Acute Code for [facility] Diagnoses Atrial fibrillation with rapid ventricular response I48.91 Hypertension I10 IRAJ (obstructive sleep apnea) G47.33
--- NOTE | 2025-10-20 09:20 | P.PN_ITS ---
Subjective 2 Subjective: Patient is doing well. Staying in sinus rhythm post cardioversion tomorrow Vitals/I&O/Wt Last Vital Signs Temp 98.1 F 10/20/25 07:57 Pulse 65 10/20/25 07:57 Resp 18 10/20/25 07:57 BP 139/68 10/20/25 07:57 Pulse Ox 97 10/20/25 07:57 O2 Del Method CPAP 10/20/25 04:00 O2 Flow Rate 3 10/20/25 04:00 10/19/25 10/20/25 10/20/25 22:59 06:59 14:59 Intake Total 400 / 878.286 Output Total 1000 / 1000 400 / 1400 Balance -600 / -121.714 -400 / -521.714 Weight last 48 hrs Weight 374 lb 5.518 oz Weight 350 lb Physical Exam 2 Narrative: GENERAL: Patient is alert, awake and oriented x3. [] NECK: No jugular vein distension. [] HEENT: No cyanosis. No icterus. No pallor. [] HEART: Irregularly irregular, tachycardia LUNGS: Clear to auscultate bilaterally. [] CENTRAL NERVOUS SYSTEM: Grossly nonfocal. [] EXTREMITIES: Lower extremities with 1+ edema bilaterally. Urinary Catheter Management: Alfonso: Cath Placed During This Visit: yes Reason for Continuing Indwelling Catheter: Accurate Measurement of Urinary Output in Critically Ill Patients Urinary Catheter Date of Insertion: 10/18/25 Urinary Catheter Time of Insertion: 20:44 Data 10/20/25 04:52 10/20/25 04:52 A&P Assessment and plan 1. Atrial fibrillation with rapid ventricular response: 2. Hypertension: 3. Obesity: 4. IRAJ (obstructive sleep apnea): Plan: Patient is staying in sinus rhythm. Patient can be discharged home on Eliquis, metoprolol and Cardizem. Thank you for involving us with care of this patient. We will continue to follow. Please call with questions. PDMP PDMP Reviewed: Not Reviewed Attestations 2 Medical Necessity Statement*: Care expected to cross 2 midnights. Coding Level of Care Code Acute Code for Chg Fwd Diagnoses Atrial fibrillation with rapid ventricular response I48.91 Hypertension I10 Obesity E66.9 IRAJ (obstructive sleep apnea) G47.33
[2025-10-20 09:53] VITALS: PULSE 102; O2SAT 94
[2025-10-20 11:34] VITALS: BP 169/64; PULSE 75; RESP 22; O2SAT 94
--- NOTE | 2025-10-20 12:25 | PM.DCS ---
Discharge Providers Date of Admission: 10/18/25 12:14 Date of Discharge: October 20, 2025 Attending Provider at Admission: Bairon Yarbrough MD Attending Provider at Discharge: Claudette Dukes MD Primary Care Provider: Matt Mercado MD Diagnoses at Discharge Discharge Diagnosis 1. Atrial fibrillation with rapid ventricular response: 2. Hypertension: 3. IRAJ (obstructive sleep apnea): 4. Muscle cramp: 5. Restless leg syndrome: Reason for Visit Reason for Visit: increased hr, sob, fatigue Brief History: As per the previous retrospective notes and the patient: Daniela Hernandez is a 70 year old female with past medical history of atrial fibrillation on metoprolol and Cardizem, presented with palpitations from the last 3 to 4 days and presented to ER with a heart rate reaching above 140s to 150s. Admitted as a case of atrial fibrillation with RVR. Patient did not report any shortness of breath, chest pain, chest pressure, abdominal pain, diarrhea, vomiting or any fever or chills. No orthopnea or PND. Rest of review of system unremarkable Patient is non-smoker, nonalcoholic and no other drug abuse Hospital Course Hospital Course Patient came as a case of atrial fibrillation with RVR, she was initially given Cardizem drip that did not help. Later on switched to amnio drip that was also not helping in controlling her heart rate. IV metoprolol was also given during the management but was not sufficient. Cardiology taken on board and plan for cardioversion. The patient underwent NEW and cardioversion, status post cardioversion patient remained stable. She also reported leg cramps which were stable after starting her on gabapentin since her symptoms were more or less going with rest leg leg syndrome and her electrolytes were normal. Patient remained stable during her hospital stay. Patient was provided with medications that were were reconciled after confirmation and according to patient comorbidities and appropriate follow-ups and referrals were provided at the time of discharge. patient understanding/establishing the stability of the current condition was considered during discharge with all the risk and benefits thoroughly explained. Patient condition has been discussed at length with the patient/family, I have independently reviewed the chart labs imaging/diagnostics/EKG. the goals of care and code status with the patient/family/NOK/legal circulation sales representative, and documented accordingly. The management has been done according to the current clinical condition with respect to patient goals of care and based on recommendations/guidelines. The patient/family has been informed about the current condition and further plan of care. Agreed with the plan of care and understood without any language barrier. Every effort was made to ensure accuracy of wardrobe assistant. Any obvious errors or omissions should be clarified with the author of the document. Physical Exam Narrative: General: Morbidly obese lady, alert and oriented, lying comfortably without any distress HEENT: Normocephalic, atraumatic, grossly unremarkable exam Cardio: Limited secondary to morbid obesity, irregular rhythm with tachycardia, normal S1-S2, however cannot appreciate murmurs or rubs due to morbid obesity, JVD can be observed due to short thick neck Respiratory: Normal air entry, did not wish any wheezes or stridor however limited exam due to morbid obesity GI: Abdomen soft, nontender, nondistended, normoactive bowel sounds present all 4 quadrants, Neuro: intact cranial nerves motor and sensory and cerebellar/coordination function without any focal neurological deficit Behavior: Appropriate and cooperative Extremities: Adequate palpable pulses, mild trace edema Urinary Catheter Management: Alfonso: Cath Placed During This Visit: yes Reason for Continuing Indwelling Catheter: Accurate Measurement of Urinary Output in Critically Ill Patients Urinary Catheter Date of Insertion: 10/18/25 Urinary Catheter Time of Insertion: 20:44 Discharge Data Studies Completed and Pending Completed Studies During Hospitalization Category Date Time Status XR chest 1V portable [id number] Stat Exams 10/18/25 09:55 Completed Pending at discharge Category Date Time Status CBC Auto Diff [Complete Blood Count w/Auto] AM LABS Lab 10/21/25 04:00 Ordered CMP [Comprehensive Metabolic Panel] AM LABS Lab 10/21/25 04:00 Ordered NEW [CV. echo transesophageal [id number]] Routine Ultrasound 10/19/25 11:04 Taken Radiology Impressions Chest X-Ray 10/18/25 09:55 IMPRESSION: No acute cardiopulmonary abnormality. Laboratory Results WBC 10.46 10^3/uL (3.29-11.43) 10/20/25 04:52 Corrected WBC Cancelled 10/20/25 03:34 RBC 4.29 10^6/uL (3.85-5.65) 10/20/25 04:52 Hgb 12.00 g/dL (11.27-16.99) 10/20/25 04:52 Hct 38.9 % (36-47) 10/20/25 04:52 MCV 90.7 fl (85-98) 10/20/25 04:52 MCH 28.0 pg (27-33) 10/20/25 04:52 MCHC 30.8 g/dL (30-55) 10/20/25 04:52 RDW 15.9 % (12.1-15.1) H 10/20/25 04:52 Plt Count 190 10^3/cmm (157-399) 10/20/25 04:52 MPV 11.5 fL (7.4-10.4) H 10/20/25 04:52 Gran % Cancelled 10/20/25 03:34 Neut % (Auto) 68.5 % 10/20/25 04:52 Lymph % (Auto) 22.4 % 10/20/25 04:52 [place] % (Auto) 6.1 % 10/20/25 04:52 Eos % (Auto) 2.0 % 10/20/25 04:52 Baso % (Auto) 0.7 % 10/20/25 04:52 Neut # (Auto) 7.17 10^3/uL (1.8-7.7) 10/20/25 04:52 Lymph # (Auto) 2.3 10^3/uL (0.8-4.8) 10/20/25 04:52 [place] # (Auto) 0.6 10^3/uL (0.2-0.9) 10/20/25 04:52 Eos # (Auto) 0.2 10^3/uL (0.0-0.8) 10/20/25 04:52 Baso # (Auto) 0.1 10^3/uL (0.0-0.1) 10/20/25 04:52 Absolute Gran (auto) Cancelled 10/20/25 03:34 Nucleated RBC % (auto) 0 % 10/20/25 04:52 Nucleated RBCs # 0.0 /100WBC 10/20/25 04:52 PT 16.10 SECONDS (12.1-14.9) H 10/18/25 10:23 INR 1.21 (0.8-1.2) H 10/18/25 10:23 Sodium 139 mmol/L (136-145) 10/20/25 04:52 Potassium 3.8 mmol/L (3.5-5.1) 10/20/25 04:52 Chloride 105 mmol/L (98-107) 10/20/25 04:52 Carbon Dioxide 22 mmol/L (22-29) 10/20/25 04:52 Anion Gap 15.8 (5-19) 10/20/25 04:52 BUN 16 mg/dL (8-23) 10/20/25 04:52 Creatinine 0.6 mg/dL (0.5-0.9) 10/20/25 04:52 GFR Calculation Not Reportable 10/20/25 04:52 Glucose 103 mg/dL (65-115) 10/20/25 04:52 Calculated Osmolality 289 mOsm/kg (285-295) 10/20/25 04:52 Calcium 8.7 mg/dL (8.5-10.5) 10/20/25 04:52 Phosphorus 3.4 mg/dL (2.5-4.5) 10/19/25 06:13 Magnesium 2.0 mg/dL (1.7-2.3) 10/18/25 10:23 Total Bilirubin 0.7 mg/dL (0.15-1.2) 10/20/25 04:52 AST 22 U/L (0-32) 10/20/25 04:52 ALT 27 U/L (0-33) 10/20/25 04:52 Alkaline Phosphatase 82 U/L (35-105) 10/20/25 04:52 Troponin T Baseline 14 ng/L (0-10) H 10/18/25 10:23 Troponin T 60 Minute 13.79 ng/L (0-10) H 10/18/25 11:15 Delta Troponin T -0.21 ABS# (0-10) L 10/18/25 11:15 Troponin T Hi Sens 6Hr 13.33 ng/L (0-10) H 10/18/25 17:29 Troponin T Hi Sens 6Hr Delta -0.67 ng/L (0-12) L 10/18/25 17:29 NT-Pro-B Natriuret Pep 2190 pg/mL (0-125) H 10/18/25 10:23 Total Protein 5.5 g/dL (6.6-8.7) L D 10/20/25 04:52 Albumin 3.4 g/dL (3.5-5.2) L 10/20/25 04:52 Globulin 2.1 g/dL (1.3-4.6) 10/20/25 04:52 Urine Color Yellow (Yellow) 10/18/25 11:36 Urine Appearance Clear (CLEAR) 10/18/25 11:36 Urine pH 5.5 (5-7) 10/18/25 11:36 Ur Specific [place] 1.024 (1.005-1.030) 10/18/25 11:36 Urine Protein 1+ (Negative) A 10/18/25 11:36 Urine Glucose (UA) Negative (Normal) 10/18/25 11:36 Urine Ketones Negative (Negative) 10/18/25 11:36 Urine Blood Negative (Negative) 10/18/25 11:36 Urine Nitrate Negative (Negative) 10/18/25 11:36 Urine Bilirubin Negative (Negative) 10/18/25 11:36 Urine Urobilinogen 1.0 mg/dL (Negative) 10/18/25 11:36 Ur Leukocyte Esterase Negative (Negative) 10/18/25 11:36 Urine RBC 0-2 /hpf (0-2) 10/18/25 11:36 Urine WBC 0-5 /hpf (0-5) 10/18/25 11:36 Ur Squamous Epith Cells 6-10 /hpf (0-5) 10/18/25 11:36 Amorphous Sediment Not Reportable 10/18/25 11:36 Urine Bacteria Trace /hpf (NONE) 10/18/25 11:36 Hyaline Casts 3.71 /lpf 10/18/25 11:36 Vitals Last Vital Signs Temp 98.1 F 10/20/25 07:57 Pulse 75 10/20/25 11:34 Resp 22 H 10/20/25 11:34 BP 169/64 10/20/25 11:34 Pulse Ox 94 10/20/25 11:34 O2 Del Method Room Air 10/20/25 09:53 O2 Flow Rate 3 10/20/25 04:00 Discharge Plan Discharge Patient Disposition: Home Condition: Stable Prescriptions: New cyclobenzaprine 10 mg Tablet 5 mg PO TID PRN (Reason: Muscle Spasms) 15 Days Qty: 30 0RF gabapentin 100 mg Capsule 100 mg PO BID 60 Days Qty: 120 0RF Continued magnesium glycinate 100 mg magnesium capsule 250 mg PO BEDTIME (DME) Auto-titrating CPAP with mask and supplies See Rx Instructions .ROUTE .MEDSUPPLY Qty: 1 0RF Rx Instructions: Use while sleeping at least 4 hours per day. Settings: 6-16 cm H2O furosemide [Lasix] 40 mg tablet 40 mg PO BID PRN (Reason: edema) Qty: 60 6RF potassium chloride [Klor-Con M20] 20 mEq tablet,ER particles/crystals 20 meq PO BID PRN (Reason: take with Lasix) Qty: 60 6RF (DME) sole supports See Rx Instructions .Route .MEDSUPPLY Qty: 1 0RF Rx Instructions: As directed diltiazem HCl 120 mg capsule,extended release 24 hr 120 mg PO DAILY Qty: 90 3RF Eliquis 5 mg tablet 5 mg PO BID Qty: 180 3RF metoprolol succinate 25 mg tablet extended release 24 hr 25 mg PO DAILY Qty: 180 3RF zinc acetate 25 mg (zinc) Capsule 25 mg PO DAILY Chief Lock Tender Operator OK for DC: Cardiology Discharge Order = DC NOW: Discharge Order (Routine); Ordered 10/20/25 Ordered By: Claudette Dukes Referrals: Jerome Dye M.D [Physician, Cardiology] - 2 weeks Referral Note: post discharge follow up s/p cardioversion for at fib with RVR Matt Mercado MD [Primary Care Provider, Family Practice] Referral Note: We have notified your physician's clinic of the need for a follow-up appointment to be scheduled. If you have not heard from them within the next 2 business days, please call them directly. Discharge Diet: Advance as tolerated Discharge Activity: Resume usual activity Patient Instructions: Cyclobenzaprine (By mouth) (Flexeril, Amrix, Fexmid, FusePaq..., Gabapentin (By mouth) (Neurontin, FusePaq Fanatrex, Gralise,..., A-fib (Atrial Fibrillation) (DC), Sleep Apnea (GEN), Hypertension (DC), Opioid Safety, Patient Portal & Ajay Instructions Discharge Attestations Time Spent in Discharge Care*: greater than 30 min Specific Discharge Activities: educating patient, educating and/or supporting family/caregiver, discussing with pcp/other providers, discussing with casey saw operator/social workers/dc planners, documenting/other paperwork and evaluating patient/reviewing data Status at Discharge: Cognitive status at discharge: cognitively intact, Behavioral status at discharge: cooperative, Functional status at discharge: independent ambulation, Overall status at discharge: patient is back to baseline Quality Metrics Clinical Quality Measures [ No reported AMI, CVA or VTE this stay] Coding Level of Care Code Acute Code for Chg Fwd Diagnoses Atrial fibrillation with rapid ventricular response I48.91 Hypertension I10 IRAJ (obstructive sleep apnea) G47.33 Muscle cramp R25.2 Restless leg syndrome G25.81
[2025-10-20 12:36] VITALS: BP 169/64; PULSE 73; RESP 20; O2SAT 98
--- NOTE | 2025-10-20 12:38 | PC.NURSE ---
Patient discharged to home. Instruction given regarding follow up needs and new medications. Patient verbalized complete understanding. New medications transmitted to [facility]. Patient taken by wheelchair to private vehicle. Family member providing the transportation. Patient denies pain or needs. No distress observed.
== END 2025-10-20 12:37 | disposition home or self-care (01) | DRG 309 ==
LOC: ER 12:18 → ER IP 13:00 → CSU 15:49 → ICU 16:15 → CSU 10-19 21:21
PROVIDERS: Admitting Provider Internal Medicine; Emergency Provider Emergency Medicine; PCP Family Medicine; Visit Provider Student in an Organized Health Care Education/Training Program
DX: I48.91 Unspecified atrial fibrillation (principal); Z68.44 Body mass index [BMI] 60.0-69.9, adult; I10 Essential (primary) hypertension; G47.33 Obstructive sleep apnea (adult) (pediatric); G25.81 Restless legs syndrome; E66.01 Morbid (severe) obesity due to excess calories; Z96.659 Presence of unspecified artificial knee joint; I16.0 Hypertensive urgency; Z79.01 Long term (current) use of anticoagulants; Z90.49 Acquired absence of other specified parts of digestive tract; Z90.710 Acquired absence of both cervix and uterus; Z82.49 Family history of ischemic heart disease and other diseases of the circulatory system
CPT/HCPCS: 36415; 51702; 71045; 80053; 81001; 83735; 83880; 84100; 84484; 85025; 85610; 93005; 93312; 93320; 93325; 96365; 96366; 96375; 99291; 99292; A4222; J0282; J0283; J1160; J1938; J2060; J2371; J2470; J2704; J3490; J9999